=== PATIENT | female | born 1950 | race Caucasian/White ===

== ENCOUNTER 2022-06-03 01:25 | Observation (INO) | payer BC, SELFPAY ==
[2022-06-03] VITALS (15 sets, daily range): BP systolic 113–183; BP diastolic 42–71; PULSE 56–72; RESP 15–21; TEMP 36–37; O2SAT 86–100; BMI 25.0
--- NOTE | 2022-06-03 02:12 | CRLHL7_ITS ---
For Patients: As a result of the Cures Act, medical imaging exams and procedure reports are released immediately into your electronic medical record. You may view this report before your referring provider. If you have questions, please contact your health care provider. INDICATION: Hip injury from fall TECHNIQUE: Pelvis radiograph, Hip radiograph 3 views left COMPARISON: None FINDINGS: Bone: No acute fractures or aggressive bone lesions are identified. Three cannulated lag screws are present within the left femoral neck. Joint: The hip joint is unremarkable. The visualized sacroiliac joints are unremarkable in appearance. The pubic symphysis is normal in appearance. Soft tissue: Unremarkable. No radiopaque foreign bodies are seen. IMPRESSION: 1. No acute osseous injuries or abnormalities are noted. Dictated by Dustin De Los Santos MD @ 06/03/2022 2:52:16 AM Dictated by: Dustin De Los Santos MD @ 06/03/2022 02:52:29 (Electronically Signed)
--- NOTE | 2022-06-03 02:13 | CRLHL7_ITS ---
For Patients: As a result of the Century Cures Act, medical imaging exams and procedure reports are released immediately into your electronic medical record. You may view this report before your referring provider. If you have questions, please contact your health care provider. INDICATION: Lung mass, hypoxia, chest injury from fall TECHNIQUE: Chest radiograph 1 view COMPARISON: 06/28/2020 FINDINGS: Mediastinum: A left hilar lung mass is present measuring 4.6 cm in craniocaudal diameter and not significantly changed from prior exam. The heart silhouette is normal in size and morphology. Lung: Both apices are excluded. Mild interstitial infiltrates are present within both lungs with architectural distortion and tenting noted in the left lung base which may be due to mild pulmonary fibrosis. No sign of pleural effusion seen. No pneumothorax is identified. Bone and Soft tissue: Unremarkable for age. IMPRESSION: 1. A left hilar lung mass is present measuring 4.6 cm in craniocaudal diameter and not significantly changed from prior exam. Dictated by uDstin De Los Santos MD @ 06/03/2022 2:51:43 AM Dictated by: Dustin De Los Santos MD @ 06/03/2022 02:51:46 (Electronically Signed)
--- NOTE | 2022-06-03 02:19 | CRLHL7_ITS ---
For Patients: As a result of the Cures Act, medical imaging exams and procedure reports are released immediately into your electronic medical record. You may view this report before your referring provider. If you have questions, please contact your health care provider. INDICATION: Shoulder injury from fall TECHNIQUE: Shoulder radiograph 2 views left COMPARISON: None FINDINGS: Bone: No acute fractures or aggressive bone lesions are identified. Joint: The glenohumeral joint is unremarkable. The acromioclavicular joint is unremarkable. Soft tissue: Unremarkable. The visualized hemithorax is unremarkable in appearance. No radiopaque foreign bodies are seen. IMPRESSION: 1. No acute osseous injuries or abnormalities are noted. Dictated by: Dustin De Los Santos MD @ 06/03/2022 02:52:46 (Electronically Signed)
[2022-06-03 02:20] LABS: Basophils Absolute Auto 0.04 K/uL (0.00-0.30); Basophils Percent Auto 0.5 % (0.0-3.0); Eosinophils Absolute Auto 0.47 K/uL (0.00-0.50); Eosinophils Percent Auto 6.4 % (0.0-7.0); Hematocrit 34.6 % (33.0-51.0); Hemoglobin* 11.8 gm/dL (12.0-16.0); Immature Granulocytes Abs Auto 0.03 K/uL (0.00-0.30); Lymphocytes Percent Auto 13.3 % (20-44); Mean Corpuscular HGB Conc 34 gm/dL (32-36); Mean Corpuscular Hemoglobin 32 pg (26-34); Mean Corpuscular Volume 94 fL (80-100); Monocytes Percent Auto 7.3 % (0.0-11.0); Neutrophils Percent Auto 72.1 % (42.0-72.0); Platelet Count* 166 K/uL (140-440); RDW Coefficient of Variation % 12.7 % (11.5-15.5); Red Blood Count 3.67 m/uL (4.00-5.20); Slide Review Reflex No; White Blood Count* 7.38 K/uL (4.50-11.00)
[2022-06-03 02:21] LABS: Chloride* 100 mmol/L (96-114); Sodium* 138 mmol/L (135-149)
[2022-06-03 02:24] LABS: Carbon Dioxide* 32 mmol/L (20-32); Creatinine* 1.4 mg/dL (0.5-1.5); Estimated Glomerular Filt Rate 40 ml/min
[2022-06-03 02:25] LABS: Blood Urea Nitrogen* 52 mg/dL (7-30); Calcium* 9.2 mg/dL (8.4-10.6); Glucose* 123 mg/dL (60-115)
--- NOTE | 2022-06-03 02:30 | ED_ITS ---
HPI - Fall General Chief Complaint: Fall/Minor Trauma Stated Complaint: fall injured hip Time Seen by Provider: 06/03/22 01:58 Source: patient and RN notes reviewed Mode of arrival: EMS History of Present Illness HPI Narrative: 71-year-old woman presenting to the emergency department with complaint of left hip pain particular after a fall. Brought by EMS. Lives at the [facility] due to cares needed for muscular sclerosis. She was trying to get out of bed, sounds like to adjust it noting an electrical bed, and tripped on the carpet and fell onto her left side. There was no loss of consciousness. She is not having any head or neck pain. No back pain. This pain described in the left upper arm and left hip which is noted to be deformed on arrival. No abdominal pain. Does have a history of a right lung mass. She is not feeling unusually short of breath. Prior to my seeing her had noted desperate need to urinate and nursing has placed a G[place]imo. Prior history of surgery on left hip. History of diabetes. Takes glimepiride. History of chronic kidney disease. Also baclofen for MS. Normally gets about with a walker. Related Data Home Medications Medication Instructions Recorded Confirmed lisinopril 2.5 mg tablet 2.5 mg PO DAILY 04/16/22 06/03/22 alprazolam 0.5 mg tablet 0.25 mg PO DAILY PRN anxiety 06/03/22 06/03/22 aripiprazole 10 mg tablet 10 mg PO HS 06/03/22 06/03/22 baclofen 10 mg tablet 10 mg PO BID PRN 06/03/22 06/03/22 duloxetine 60 mg capsule,delayed 60 mg PO BID 06/03/22 06/03/22 release glimepiride 1 mg tablet 1 mg PO DAILY 06/03/22 06/03/22 ipratropium bromide 21 mcg (0.03 2 spray intranasal TID 06/03/22 06/03/22 %) nasal spray levothyroxine 75 mcg tablet 75 mcg PO DAILY 06/03/22 06/03/22 metoprolol succinate 50 mg 50 mg PO DAILY 06/03/22 06/03/22 tablet,extended release 24 hr pregabalin 25 mg capsule 25 mg PO HS 06/03/22 06/03/22 simvastatin 40 mg tablet 40 mg PO HS 06/03/22 06/03/22 Previous Rx's Medication Instructions Recorded hydrocodone 10 mg-acetaminophen 1 tab PO TID PRN pain #90 tabs 05/29/22 325 mg tablet Allergies Allergy/AdvReac Type Severity Reaction Status Date / Time codeine Allergy Intermediate Makes me Verified 06/03/22 01:46 crazy ketorolac [From Toradol] Allergy Intermediate Agitated Verified 06/03/22 01:46 Review of Systems Status of ROS: Reports: 6 or more systems reviewed and unremarkable except as noted in History and below [facility] Medical History (Updated 06/03/22 @ 10:32 by Barrett Bautista MD) Acute depression CAD (coronary artery disease) Chronic low back pain Closed fracture of left hip requiring operative repair COPD (chronic obstructive pulmonary disease) Diabetes mellitus Dyslipidemia DECLAN (generalized anxiety disorder) History of fracture of left hip HTN (hypertension) Hypothyroid Hypoxia Mass of right lung Multiple sclerosis Myocardial infarction MAKAYLA on CPAP Osteoporosis Valvular heart disease Surgical History (Updated 06/03/22 @ 10:25 by Barrett Bautista MD) History of coronary artery stent placement History of toe surgery Family History Father CHF (congestive heart failure) Social History Highest level of school completed/degree received: some college, no degree Smoking Status: Former smoker Do you use any of these nicotine containing products: None Second hand tobacco smoke exposure: No How often do you have a drink containing alcohol: never AUDIT-C Alcohol total score: 0 Non-prescribed substance use: denies use Caffeine: Yes (1 cup coffee per day) service: No Exam Narrative: Exam Narrative: Asleep cap on. She is alert and NAD at rest. Carefully groomed. Head looks to be atraumatic. Neck is supple. Back nontender. Cranial nerves 2-12 intact. lungs with generally in her lungs with crepitus. Good air movement. Cardiovascular with regular rate and rhythm. 2/6 systolic murmur across precordium. Chest is nontender Has some limited extension at the left shoulder. Abduct to about 45?. She is sore generally to palpation this left shoulder upper humerus. I do not see discrete swelling or erythema. Extremities are well perfused. There is no edema in lower extremities. Abdomen is soft and nontender. Moves Right leg without apparent difficulty but the left hip/leg does show deformity in the left hip with firm and somewhat purple swelling at the greater trochanter area, sore to palpation. Resists movement initially. Const: Vital Signs, click to edit/add: Vital Signs - 24 hr 06/03/22 01:40 06/03/22 01:39 06/03/22 02:42 Temperature 96.8 F L Pulse Rate [Left P ulse Oximeter] 72 63 Respiratory Rate 18 15 Blood Pressure [Ri ght Upper Arm] 183/67 H 164/62 H Pulse Oximetry 86 L 98 100 Oxygen Delivery Me thod Room Air Nasal Cannula Nasal Cannula Oxygen Flow Rate 2 06/03/22 02:51 06/03/22 03:36 06/03/22 04:59 Temperature Pulse Rate [Left P ulse Oximeter] 64 64 60 Respiratory Rate 16 17 16 Blood Pressure [Ri ght Upper Arm] 165/66 H 148/45 H 147/42 H Pulse Oximetry 100 100 93 Oxygen Delivery Me thod Nasal Cannula Nasal Cannula Nasal Cannula Oxygen Flow Rate 2 2 2 06/03/22 05:50 Temperature Pulse Rate [Left P ulse Oximeter] 57 L Respiratory Rate 21 Blood Pressure [Ri ght Upper Arm] 133/42 L Pulse Oximetry 99 Oxygen Delivery Me thod Nasal Cannula Oxygen Flow Rate 2 Documenting provider has reviewed patient's vital signs: yes Course Course Hospital Course: Exam and interview as above. Is still rather sore. Consultations Consultation #1: Spoke initially with on-call hospitalist. Recommending further cares in the emergency department. Corrected potassium and subsequently EKG. Vital Signs Vital signs: Initial Vital Signs Pulse Oximetry 98 06/03/22 01:39 Oxygen Delivery Method 06/03/22 01:39 Vital Signs Pulse Oximetry 98 06/03/22 01:39 Oxygen Delivery Method 06/03/22 01:39 Temperature 97.5 F L 06/03/22 13:30 Pulse Rate 63 06/03/22 13:30 Respiratory Rate 16 06/03/22 13:30 Blood Pressure 144/48 H 06/03/22 13:30 Pulse Oximetry 92 06/03/22 13:30 Oxygen Delivery Method 06/03/22 13:30 Oxygen Flow Rate 1 06/03/22 08:45 MDM - Fall MDM Narrative Medical decision making narrative: Imaging pending. Anticipating admission. EKG was prominent T-waves and potassium 6.3. I cannot appreciate acute bony abnormality in review of left shoulder/humerus and left hip imaging. Surgical fixation noted in the left hip. By my read Chest x-ray looks to be generally with fibrotic changes-Radiology noting unchanged right lung mass. Will be treating hyperkalemia with insulin and dextrose. As well as calcium gluconate. Given pain complicating underlying MS and need for walker, now compounded by hyperkalemia of unclear etiology at this point with EKG changes in the setting of chronic kidney disease, anticipate admission. I have spoken initially with hospitalist. Initiating treatments for hyperkalemia and awaiting affect first Potassium is improved to 5. Repeat EKG now with less prominent/WNL T-waves. A call again to hospitalist. Change of shift there. Clarified code status. Just desires not to have prolonged intubation. Would consider in that case full code. Medical Records Attestation: I reviewed the patient's medical records. Lab Data Attestation: I reviewed the patient's lab results. Labs: Lab Results 06/03/22 06/03/22 06/03/22 Range/Units 02:00 02:05 02:05 WBC 7.38 (4.50-11.00) K/uL RBC 3.67 L (4.00-5.20) m/uL Hgb 11.8 L (12.0-16.0) gm/dL Hct 34.6 (33.0-51.0) % MCV 94 (80-100) fL MCH 32 (26-34) pg MCHC 34 (32-36) gm/dL RDW Coeff of Simba 12.7 (11.5-15.5) % Plt Count 166 (140-440) K/uL Neut % (Auto) 72.1 H (42.0-72.0) % Lymph % (Auto) 13.3 L (20-44) % [place] % (Auto) 7.3 (0.0-11.0) % Eos % (Auto) 6.4 (0.0-7.0) % Baso % (Auto) 0.5 (0.0-3.0) % Neut # (Auto) 5.30 (1.7-7.0) K/uL Lymph # (Auto) 1.00 (0.90-2.90) K/uL [place] # (Auto) 0.50 (0.00-0.90) K/UL Eos # (Auto) 0.47 (0.00-0.50) K/uL Baso # (Auto) 0.04 (0.00-0.30) K/uL Abs Immat Gran (auto) 0.03 (0.00-0.30) K/uL Sodium 138 (135-149) mmol/L Potassium 6.3 H* (3.6-5.1) mmol/L Chloride 100 (96-114) mmol/L Carbon Dioxide 32 (20-32) mmol/L BUN 52 H (7-30) mg/dL Creatinine 1.4 (0.5-1.5) mg/dL Estimated GFR 40 ml/min Glucose 123 H (60-115) mg/dL Calcium 9.2 (8.4-10.6) mg/dL Magnesium 1.7 (1.5-2.6) mg/dL Total Creatine Kinase 119 H (41-117) U/L SARS-CoV-2 (PCR) Negative SARS-CoV-2 (Negative) 06/03/22 Range/Units 05:10 WBC (4.50-11.00) K/uL RBC (4.00-5.20) m/uL Hgb (12.0-16.0) gm/dL Hct (33.0-51.0) % MCV (80-100) fL MCH (26-34) pg MCHC (32-36) gm/dL RDW Coeff of Simba (11.5-15.5) % Plt Count (140-440) K/uL Neut % (Auto) (42.0-72.0) % Lymph % (Auto) (20-44) % [place] % (Auto) (0.0-11.0) % Eos % (Auto) (0.0-7.0) % Baso % (Auto) (0.0-3.0) % Neut # (Auto) (1.7-7.0) K/uL Lymph # (Auto) (0.90-2.90) K/uL [place] # (Auto) (0.00-0.90) K/UL Eos # (Auto) (0.00-0.50) K/uL Baso # (Auto) (0.00-0.30) K/uL Abs Immat Gran (auto) (0.00-0.30) K/uL Sodium 140 (135-149) mmol/L Potassium 5.0 (3.6-5.1) mmol/L Chloride 105 (96-114) mmol/L Carbon Dioxide 33 H (20-32) mmol/L BUN 46 H (7-30) mg/dL Creatinine 1.5 (0.5-1.5) mg/dL Estimated GFR 37 ml/min Glucose 78 (60-115) mg/dL Calcium 8.9 (8.4-10.6) mg/dL Magnesium (1.5-2.6) mg/dL Total Creatine Kinase (41-117) U/L SARS-CoV-2 (PCR) (Negative) ECG Data Attestation: I personally reviewed and interpreted this ECG as follows: (EKG with normal sinus at a rate of 66. Somewhat prominent T-waves. I do not have prior EKG for comparison) Critical Care Time Critical Care Time Critical Care Time: Yes Attestation: The patient required my highest level preparedness to intervene emergently and I personally spent this critical care time directly and personally managing the patient. This critical care time included: Obtaining a history; Examining the patient; Pulse oximetry; Ordering and reviewing of studies; Arranging urgent treatment with development of a management plan; Evaluation of patients response to treatment; Frequent reassessment discussions with other providers. This critical care time was performed to assess and manage the high probability of imminent life-threatening deterioration that could result in multiorgan failure. It was exclusive of separate billable procedures and treating other patients and teaching time. Total Critical Care Time in Minutes: 45 Discharge Plan Discharge Clinical Impression: Hematoma and contusion, Acute electrocardiogram changes, Multiple sclerosis, Fall, Hyperkalemia Patient Disposition: Admitted As Inpatient Condition: Improved
[2022-06-03 02:31] LABS: Potassium* 6.3 mmol/L (3.6-5.1)
--- NOTE | 2022-06-03 02:31 | ED.NURSE ---
Patient to radiology.
[2022-06-03] MEDS: MORPHINE 4 MG/ML INJ IVP (02:44)
[2022-06-03] MEDS: 0.9 % SODIUM CHLORIDE 1000 ml 1,000 ML IV (02:45)
[2022-06-03 02:48] LABS: SARS PCR* Negative SARS-CoV-2 (Negative)
[2022-06-03] MEDS: DEXTROSE 50 % SYRINGE IVP (03:29)
[2022-06-03 05:05] LABS: Magnesium* 1.7 mg/dL (1.5-2.6)
[2022-06-03 05:31] LABS: Chloride* 105 mmol/L (96-114); Sodium* 140 mmol/L (135-149)
[2022-06-03 05:34] LABS: Carbon Dioxide* 33 mmol/L (20-32); Creatinine* 1.5 mg/dL (0.5-1.5); Estimated Glomerular Filt Rate 37 ml/min
[2022-06-03 05:35] LABS: Blood Urea Nitrogen* 46 mg/dL (7-30); Calcium* 8.9 mg/dL (8.4-10.6); Glucose* 78 mg/dL (60-115)
--- NOTE | 2022-06-03 06:21 | ED.NURSE ---
Juanpablo d/c'd with 600cc clear yellow urine out per Dr. gray verbal order.
[2022-06-03] MEDS: HYDROCODONE-ACETAMIN 5-325 MG 1 TAB PO ×3 (08:11→21:20)
[2022-06-03] MEDS: FUROSEMIDE 20 MG TABLET PO (08:54)
[2022-06-03 09:42] LABS: Creatine Kinase* 119 U/L (41-117)
--- NOTE | 2022-06-03 10:16 | PM.IMHP1 ---
Hospitalist- H&P: SAMAN History of Present Illness Date Seen: 06/03/22 Chief complaint: fall injured hip Narrative: Akiko Velázquez is a 71 year old female who fell last night injuring her left hip and left shoulder. Patient is a resident of [facility] in [place]. She was in bed trying to fall asleep. She got out of bed to reposition the head of her bed and fell over landing on her left hip and shoulder. She was unable to get up on her own. She did not have any loss of consciousness. She has no head or neck pain. Patient does have a history of falling secondary to multiple sclerosis. Evaluation in the emergency department showed no apparent fractures of her left shoulder or left hip. Her potassium was 6.3. She does not recall a history of hyperkalemia. Reviewing records I do see that she has had borderline elevated potassium in the past. She is on lisinopril 2.5 mg daily Review of Systems Narrative: She reports that she was in her usual state of health prior to the fall. She has not had recent illness including lightheadedness, focal weakness, shortness of breath, cough, cold, sore throat, fever, shortness of breath, chest pain, palpitations, nausea, vomiting, abdominal pain, diarrhea. She does have a tendency towards constipation because of chronic pain medications. She also has neurogenic bladder related to multiple sclerosis. She has not had any lower extremity edema. No new focal weakness. She is on chronic opioid therapy for chronic lower extremity pain. [facility] Medical History (Updated 06/03/22 @ 10:32 by Barrett Bautista MD) Acute depression CAD (coronary artery disease) Chronic low back pain Closed fracture of left hip requiring operative repair COPD (chronic obstructive pulmonary disease) Diabetes mellitus Dyslipidemia DECLAN (generalized anxiety disorder) History of fracture of left hip HTN (hypertension) Hypothyroid Hypoxia Mass of right lung Multiple sclerosis Myocardial infarction MAKAYLA on CPAP Osteoporosis Valvular heart disease Surgical History (Updated 06/03/22 @ 10:25 by Barrett Bautista MD) History of coronary artery stent placement History of toe surgery Family History Father CHF (congestive heart failure) Social History Highest level of school completed/degree received: some college, no degree Smoking Status: Former smoker Do you use any of these nicotine containing products: None Second hand tobacco smoke exposure: No How often do you have a drink containing alcohol: never AUDIT-C Alcohol total score: 0 Non-prescribed substance use: denies use Caffeine: Yes (1 cup coffee per day) service: No Meds Home Medications and Allergies Home Medications Medication Instructions Recorded Confirmed Type lisinopril 2.5 mg tablet 2.5 mg PO DAILY 04/16/22 06/03/22 History alprazolam 0.5 mg tablet 0.25 mg PO DAILY PRN anxiety 06/03/22 06/03/22 History aripiprazole 10 mg tablet 10 mg PO HS 06/03/22 06/03/22 History baclofen 10 mg tablet 10 mg PO BID PRN 06/03/22 06/03/22 History duloxetine 60 mg capsule,delayed 60 mg PO BID 06/03/22 06/03/22 History release glimepiride 1 mg tablet 1 mg PO DAILY 06/03/22 06/03/22 History ipratropium bromide 21 mcg (0.03 2 spray intranasal TID 06/03/22 06/03/22 History %) nasal spray levothyroxine 75 mcg tablet 75 mcg PO DAILY 06/03/22 06/03/22 History metoprolol succinate 50 mg 50 mg PO DAILY 06/03/22 06/03/22 History tablet,extended release 24 hr pregabalin 25 mg capsule 25 mg PO HS 06/03/22 06/03/22 History simvastatin 40 mg tablet 40 mg PO HS 06/03/22 06/03/22 History Allergies Allergy/AdvReac Type Severity Reaction Status Date / Time codeine Allergy Intermediate Makes me Verified 06/03/22 01:46 crazy ketorolac [From Toradol] Allergy Intermediate Agitated Verified 06/03/22 01:46 Exam Narrative: Exam Narrative: She is alert and appears in no distress. She gives her own history. Head is without evidence of trauma. She has lost most of her hair secondary to therapy for MS. No obvious head trauma. Neck is without tenderness. She moves her neck well. Eyes normal. Oropharynx with dry mucous membranes. Neck is without mass or tenderness. Respirations are clear to auscultation. Cardiovascular: S1, S2, 2/6 systolic ejection murmur. No gallop or rub. Abdomen: Bowel sounds active. Abdomen is soft without tenderness or mass. External genitalia normal. Extremities with intact pulses. She moves her right upper and lower extremity well without pain or significant limitation of motion or disability. Left shoulder is inspected and appears to have no obvious trauma. Palpation shows she is tender primarily around that humeral head. There is no obvious fluid collection or deformity noted. Palpation over the scapula and the clavicle is unremarkable. She is able to abduct to 45? and flex to 60?. Palpation over the distal upper extremity is without tenderness. She moves her elbow and wrist without difficulties. Left lower extremities notable for a moderate amount of bruising over the greater trochanter laterally. No obvious break in the skin. She can flex her hip to 90? without significant discomfort. She has quite limited range of motion with internal external rotation and a bee 80 duction of the left hip but this is not particularly painful. She moves her knee without significant discomfort palpation over her thigh knee and calf is without significant discomfort. Ankle and foot is normal in appearance without tenderness. Motion in her ankle is normal. Const: Vital Signs, click to edit/add: Vital Signs - 24 hr 06/03/22 01:40 06/03/22 01:39 06/03/22 02:42 Temperature 96.8 F L Pulse Rate Pulse Rate [Left P ulse Oximeter] 72 63 Pulse Rate [Right Radial] Respiratory Rate 18 15 Blood Pressure [Le ft Arm] Blood Pressure [Ri ght Arm] Blood Pressure [Ri ght Upper Arm] 183/67 H 164/62 H Pulse Oximetry 86 L 98 100 Oxygen Delivery Me thod Room Air Nasal Cannula Nasal Cannula Oxygen Flow Rate 2 06/03/22 02:51 06/03/22 03:36 06/03/22 04:59 Temperature Pulse Rate Pulse Rate [Left P ulse Oximeter] 64 64 60 Pulse Rate [Right Radial] Respiratory Rate 16 17 16 Blood Pressure [Le ft Arm] Blood Pressure [Ri ght Arm] Blood Pressure [Ri ght Upper Arm] 165/66 H 148/45 H 147/42 H Pulse Oximetry 100 100 93 Oxygen Delivery Me thod Nasal Cannula Nasal Cannula Nasal Cannula Oxygen Flow Rate 2 2 2 06/03/22 05:50 06/03/22 06:54 06/03/22 08:45 Temperature 96.9 F L 97.7 F Pulse Rate Pulse Rate [Left P ulse Oximeter] 57 L Pulse Rate [Right Radial] 63 61 Respiratory Rate 21 18 18 Blood Pressure [Le ft Arm] 149/46 H Blood Pressure [Ri ght Arm] 160/69 H Blood Pressure [Ri ght Upper Arm] 133/42 L Pulse Oximetry 99 90 96 Oxygen Delivery Me thod Nasal Cannula Nasal Cannula Nasal Cannula Oxygen Flow Rate 2 2 1 06/03/22 08:45 06/03/22 08:57 Temperature Pulse Rate 63 Pulse Rate [Left P ulse Oximeter] Pulse Rate [Right Radial] Respiratory Rate Blood Pressure [Le ft Arm] Blood Pressure [Ri ght Arm] Blood Pressure [Ri ght Upper Arm] Pulse Oximetry 96 Oxygen Delivery Me thod Nasal Cannula Oxygen Flow Rate 1 Documenting provider has reviewed patient's vital signs: yes Hospitalist - H&P: Result Labs Labs: Short CBC 06/03/22 Range/Units 02:05 WBC 7.38 (4.50-11.00) K/uL Hgb 11.8 L (12.0-16.0) gm/dL Hct 34.6 (33.0-51.0) % Plt Count 166 (140-440) K/uL BMP 06/03/22 06/03/22 02:05 05:10 Sodium 138 140 Potassium 6.3 H* 5.0 Chloride 100 105 Carbon Dioxide 32 33 H BUN 52 H 46 H Creatinine 1.4 1.5 Glucose 123 H 78 Calcium 9.2 8.9 Cardiac Enzymes 06/03/22 Range/Units 02:05 Total Creatine Kinase 119 H (41-117) U/L Assessment and Plan Assessment and plan (1) Fall: Status: Acute Assessment and Plan: Accidental fall due primarily to disabilities from multiple sclerosis. Certainly use of opioids chronically and benzodiazepines chronically contribute to her risk for falling. (2) Injury of left hip: Status: Acute Assessment and Plan: No apparent fracture. She tolerates weight-bearing fairly well. Will have PT and OT continue to assess mobility. (3) Injury of left shoulder: Status: Acute Assessment and Plan: Marked decreased range of motion but tolerating activity fairly well. She was able to hold onto a walker with her left arm today and navigate into the bathroom. Outpatient therapy and possibly outpatient Ortho consult may be warranted (4) Hyperkalemia: Status: Acute Assessment and Plan: Due to chronic kidney disease plus lisinopril. Will stop lisinopril. Add low-dose loop diuretic. Cardiac monitoring and follow. (5) Multiple sclerosis: Status: Acute (6) Chronic kidney disease: Status: Acute Assessment and Plan: Likely the cause of her hyperkalemia. (7) Chronic pain: Status: Acute Assessment and Plan: Patient would be better off if able to reduce opioid use due to fall risk and constipation. Cannot use NSAIDs due to chronic kidney disease (8) Hypoxia: Status: Acute Assessment and Plan: Has chronic hypoxia for which she intermittently uses oxygen at home. Will continue to monitor here. Patient also reports a history of sleep apnea. Plan Continue in hospital for monitoring and treatment of elevated potassium, evaluation by PT and OT for mobility. Further assessment of injuries as needed, probably as an outpatient. Probable discharge to home tomorrow if able to manage. Total time spent today is 90 minutes, 60 minutes in coordination of care and discussing with patient and other providers ongoing evaluation management of disability and hyperkalemia.
[2022-06-03] MEDS: METOPROLOL SUCCINATE (XL) 50 MG TAB PO (11:20)
[2022-06-03] MEDS: DULOXETINE 30 MG CAPSULE DR 60 MG PO ×2 (11:20→21:20)
--- NOTE | 2022-06-03 14:29 | PC.SOCIAL ---
Met with pt. who resides at the [facility] in [place]. Pt. states she get's cleaning assistance 1x a week, 3 meals a day, and medication set up. Pt. is wanting and increase in services for awhile at discharge due to her pain. A message was left with [employer] [place] at [phone], if they can increase assistance for pt. to have assistance with bathing, dressing and toileting if needed. Pt also states her granddaughter lives close by and works from home so can occasionally assist as well. Socials services will wait to hear back from the [facility] and continue to work on discharge planning needs.
--- NOTE | 2022-06-03 18:13 | PC.NURSE ---
Pt. up in chair and to BR with walker and SBA. Drain used for pain control. Telemetry Sinus Bradycardia/Normal Sinus Rhythm.
[2022-06-03] MEDS: SIMVASTATIN 40 MG TABLET PO (21:20)
[2022-06-03] MEDS: ARIPiprazole 10 MG TABLET PO (21:20)
[2022-06-03] MEDS: PREGABALIN 25 MG CAPSULE PO (21:25)
[2022-06-04 01:10] VITALS: PULSE 60
[2022-06-04 02:40] VITALS: BP 123/48; PULSE 59; RESP 18; TEMP 36.6; O2SAT 96
--- NOTE | 2022-06-04 05:47 | PC.NURSE ---
Shift 7p-7a: Pt. AOx4, following commands, VSS on 1L NC overnight. Pt. ambulating to toilet A1 w/ RW and gait belt, voiding w/o difficulties. PRN Isom administered for c/o pain in LT shoulder and LT hip. Pt. states LT hip appears to be less swollen than yesterday, and that she feels much stronger this morning. Pt. denies headache, dizziness, nausea/vomiting. Plan for PT/OT to work with pt. to promote mobility, and waiting for nursing home social worker to contact pt.'s assisted living facility for increased services for ADL's. Plan for possible discharge back to living facility today
[2022-06-04] MEDS: LEVOTHYROXINE 75 MCG TABLET PO (06:09)
[2022-06-04 07:00] VITALS: BP 171/49; PULSE 58; PULSE 59; RESP 18; TEMP 36.6; O2SAT 96
[2022-06-04 07:34] LABS: Chloride* 101 mmol/L (96-114); Potassium* 5.7 mmol/L (3.6-5.1); Sodium* 138 mmol/L (135-149)
[2022-06-04 07:37] LABS: Basophils Absolute Auto 0.05 K/uL (0.00-0.30); Carbon Dioxide* 32 mmol/L (20-32); Creatinine* 1.5 mg/dL (0.5-1.5); Eosinophils Percent Auto 9.2 % (0.0-7.0); Est. Creatinine Clearance* 27.63; Estimated Glomerular Filt Rate 37 ml/min; Hemoglobin* 10.8 gm/dL (12.0-16.0); Immature Granulocytes Abs Auto 0.02 K/uL (0.00-0.30); Lymphocytes Percent Auto 17.7 % (20-44); Mean Corpuscular HGB Conc 33 gm/dL (32-36); Mean Corpuscular Hemoglobin 32 pg (26-34); Mean Corpuscular Volume 97 fL (80-100); Monocytes Percent Auto 9.4 % (0.0-11.0); Neutrophils Absolute Auto 3.27 K/uL (1.7-7.0); Neutrophils Percent Auto 62.3 % (42.0-72.0); Platelet Count* 153 K/uL (140-440); RDW Coefficient of Variation % 13.1 % (11.5-15.5); Red Blood Count 3.39 m/uL (4.00-5.20); White Blood Count* 5.24 K/uL (4.50-11.00)
[2022-06-04 07:38] LABS: Blood Urea Nitrogen* 46 mg/dL (7-30); Calcium* 8.7 mg/dL (8.4-10.6); Glucose* 136 mg/dL (60-115)
[2022-06-04 08:20] LABS: Slide Review Reflex No
[2022-06-04] MEDS: METOPROLOL SUCCINATE (XL) 50 MG TAB PO (09:40)
[2022-06-04] MEDS: TORSEMIDE 5 MG TABLET 10 MG PO (09:40)
[2022-06-04] MEDS: GLIMEPIRIDE 1 MG TABLET PO (09:40)
[2022-06-04] MEDS: DULOXETINE 30 MG CAPSULE DR 60 MG PO ×2 (09:41→18:11)
[2022-06-04] MEDS: HYDROCODONE-ACETAMIN 5-325 MG 1 TAB PO ×2 (10:08→16:37)
[2022-06-04 11:00] VITALS: BP 138/72; PULSE 61; RESP 18; TEMP 36.5; O2SAT 96
--- NOTE | 2022-06-04 12:16 | PC.SOCIAL ---
Spoke with pt.'s granddaughter Matthew at [phone] and with a nurse at the [facility]. Pt. can return there with additional assistance if needed. Clarified that pt. would not qualify for a SNF since pt. does not need PT ongoing. Updated Matthew on this who was told initially by OT pt. would need a TCU. Pt. will discharge resuming medication set-up, 3 meals a day, cleaning assistance and dressing/toileting assistance if needed. Pt. was able to independently toilet self today. Pt. and granddaughter Matthew prefers medical transport since Matthew has an SUV, which is difficult for pt. to get in. Pt. has [employer] and has transportation coverage. [facility] transport is booked so pt. will discharge via non-emergency ambulance.
--- NOTE | 2022-06-04 12:32 | P.DS_ITS ---
DS: Providers Provider Date Seen: 06/04/22 Date of admission: 06/03/22 06:09 Primary care physician: Marjan Harley MD Admitting Clinician: Humza May MD Consults: 06/03/22 08:07 Consult to Physical Therapy [CONS] Routine Comment: Reason(s) for PT Consult:: Evaluate and Treat Any Restrictions?:: No Restrictions Consult to Dye Range Operator [CONS] Routine Comment: Reason for Consult:: Discharge Planning Needs 06/03/22 08:10 Consult to Occupational Therapy [CONS] Routine Comment: Reason(s) for OT Consult:: Evaluate and Treat Any Restrictions?:: No Restrictions Attending Physician on discharge: Renee Nicole MD Date of Discharge: 06/04/22 DS: Diagnosis Discharge Diagnosis (1) Hyperkalemia: Status: Acute Problem details: Due to a combination of acute crush injury, chronic kidney disease, lisinopril. Discontinue lisinopril and start low-dose torsemide for hypertension and hyperkalemia (2) Injury of left hip: Status: Acute Problem details: Appears to be large bruise. Significantly improved. Not disabling pain (3) Injury of left shoulder: Status: Acute Problem details: Improved. Outpatient therapy recommended (4) Chronic kidney disease: Status: Acute Problem details: At baseline (5) Multiple sclerosis: Status: Acute Problem details: At baseline (6) Hypoxia: Status: Acute Problem details: Chronic (7) Chronic pain: Status: Acute Problem details: Chronic. On chronic opioid therapy likely contributing to hypoxia and fall risk DS: Summary Hospital Course Hospital Course: 71-year-old female fell at home injuring her left shoulder and left hip. She is unable to get up on her own. She had fairly severe acute pain. In the emergency department she was evaluated and not found to have any fractures or severe injury requiring surgical intervention. She was noted to have marked limitation in shoulder range of motion and in function but she was able to hold onto a walker to ambulate. Hip was felt to be primarily a large bruise over the greater trochanter and did not have significant disability with ambulation due to that. Incidentally noted to have hypoxia which was felt to be chronic Time Spent with Patient Time attestation: Total time spent providing and/or coordinating discharge services: Exam Narrative: Exam Narrative: Patient is alert and appears in no distress. She gives her own history. She is breathing comfortably on room air. Respirations are unlabored . Inspection of her shoulder shows some mild bruising in her upper arm. Palpation shows some mild diffuse tenderness around the shoulder. Left shoulder active range of motion: Abduction 75?, flexion 75?, 45 ? of external rotation, 75? of internal rotation. Passively I can abduct to 90?. She has mild bruising around her elbow but elbow moves without significant discomfort. Intact motion, pulses and sensation in her hand. Left hip with moderate amount of bruising over the greater trochanter. She tolerates hip motion without significant discomfort. Const: Vital Signs, click to edit/add: Vital Signs - 24 hr 06/03/22 13:30 06/03/22 15:51 06/03/22 15:51 Temperature 97.5 F L 98.6 F Pulse Rate Pulse Rate [Left R adial] 71 Pulse Rate [Right Radial] 63 Respiratory Rate 16 18 Blood Pressure [Le ft Arm] 144/48 H 161/48 H Blood Pressure [Ri ght Arm] Pulse Oximetry 92 92 92 Oxygen Delivery Me thod Room Air Room Air Room Air Oxygen Flow Rate 06/03/22 18:07 06/03/22 19:00 06/03/22 23:00 Temperature 98.2 F Pulse Rate 56 L Pulse Rate [Left R adial] 69 65 Pulse Rate [Right Radial] Respiratory Rate 18 18 Blood Pressure [Le ft Arm] Blood Pressure [Ri ght Arm] 113/60 Pulse Oximetry 93 Oxygen Delivery Me od Room Air Oxygen Flow Rate 06/03/22 23:00 06/04/22 01:10 06/04/22 02:40 Temperature 98.1 F 97.9 F Pulse Rate 60 Pulse Rate [Left R adial] 65 59 L Pulse Rate [Right Radial] Respiratory Rate 18 18 Blood Pressure [Le ft Arm] Blood Pressure [Ri ght Arm] 125/71 123/48 L Pulse Oximetry 87 L 96 Oxygen Delivery Me thod Nasal Cannula Nasal Cannula Oxygen Flow Rate 2 1 06/04/22 07:00 06/04/22 07:00 06/04/22 07:00 Temperature 97.9 F Pulse Rate 59 L Pulse Rate [Left R adial] 58 L 58 L Pulse Rate [Right Radial] Respiratory Rate 18 18 Blood Pressure [Le ft Arm] Blood Pressure [Ri ght Arm] 171/49 H Pulse Oximetry 96 Oxygen Delivery Me thod Room Air Oxygen Flow Rate Documenting provider has reviewed patient's vital signs: yes DS: Data Data Completed and Pending Labs on day of discharge: Labs from last 24 hours 06/04/22 06/04/22 06:00 06:00 WBC 5.24 RBC 3.39 L Hgb 10.8 L Hct 33.0 MCV 97 MCH 32 MCHC 33 RDW Coeff of Simba 13.1 Plt Count 153 Neut % (Auto) 62.3 Lymph % (Auto) 17.7 L Miner % (Auto) 9.4 Eos % (Auto) 9.2 H Baso % (Auto) 1.0 Neut # (Auto) 3.27 Lymph # (Auto) 0.90 Miner # (Auto) 0.50 Eos # (Auto) 0.50 Baso # (Auto) 0.05 Abs Immat Gran (auto) 0.02 Sodium 138 Potassium 5.7 H Chloride 101 Carbon Dioxide 32 BUN 46 H Creatinine 1.5 Estimated Creat Clear 27.63 Estimated GFR 37 Glucose 136 H Calcium 8.7 Discharge Plan Discharge Disposition: Home, Self-Care Date of Admission: 06/03/22 06:09 Primary Care Provider: Marjan Harley Condition: Improved Anticipated Discharge Date/Time: 06/04/22 15:00 Discharge Medications: New sennosides-docusate sodium [Stool Softener-Laxative] 8.6-50 mg Tablet 1 tab PO BID PRNQty: 30 0RF torsemide 5 mg Tablet 5 mg PO DAILY Qty: 30 0RF Continued baclofen 10 mg tablet 10 mg PO BID PRN Label Comments: TAKE 4 TABLETS BY MOUTH TWICE DAILY aripiprazole 10 mg tablet 10 mg PO HS Label Comments: TAKE 1 TABLET BY MOUTH DAILY duloxetine 60 mg capsule,delayed release(DR/EC) 60 mg PO BID Label Comments: TAKE 1 BY MOUTH TWICE DAILY. glimepiride 1 mg tablet 1 mg PO DAILY Label Comments: TAKE 1 TABLET BY MOUTH DAILY pregabalin 25 mg capsule 25 mg PO HS Label Comments: TAKE 1 CAPSULE BY MOUTH EVERY NIGHT 2 HOURS BEFORE BEDTIME FOR 1 WEEK. INCREASE TO 2 CAPSULES 2 HOURS BEFORE BEDTIME EVERY NIGHT DAILY simvastatin 40 mg tablet 40 mg PO HS Label Comments: TAKE 1 TABLET BY MOUTH AT BEDTIME metoprolol succinate 50 mg tablet extended release 24 hr 50 mg PO DAILY Label Comments: TAKE 1 TABLET BY MOUTH DAILY levothyroxine 75 mcg tablet 75 mcg PO DAILY Label Comments: TAKE 1 TABLET BY MOUTH DAILY ipratropium bromide 21 mcg (0.03 %) spray,non-aerosol 2 spray INTRANASAL TID Label Comments: INSTILL 2 SPRAYS IN EACH NOSTRIL THREE TIMES DAILY alprazolam 0.5 mg tablet 0.25 mg PO DAILY PRN (Reason: anxiety) Rx Instructions: 15 tablets must last 3 months. Due for office visit in early August hydrocodone-acetaminophen 10-325 mg tablet 1 tab PO TID PRN (Reason: pain) Qty: 90 0RF Discontinued lisinopril 2.5 mg tablet 2.5 mg PO DAILY Discharge Orders: Discharge Order (Routine); Ordered 06/04/22 Ordered By: Barrett Bautista Activity Restrictions/Additional Instructions: See your doctor in clinic next week to recheck your blood pressure and your kidney function and your potassium. Diet Detail: Low-potassium diet discussed and handout given. Follow Up Appointments: Marjan Harley MD [Primary Care Provider] - Forms: [employer] Info Instructions
--- NOTE | 2022-06-04 15:33 | PC.NURSE ---
Pt. alert and oriented x3. VSS. Pt. ambulating to toilet A1 w/ RW and gait belt, voiding w/o difficulties. Pt. rated pain in hip 4/10 and 8/10 for left shoulder. PRN Lebo administered for LT shoulder and LT hip. Pt. denies headache, dizziness, nausea/vomiting. Plan for pt. is waiting for medical social worker to contact pt.'s assisted living facility for increased services for ADL's. Plan for possible discharge back to living facility today.
[2022-06-04 16:00] LABS: Potassium* 5.3 mmol/L (3.6-5.1)
[2022-06-04 16:05] VITALS: BP 163/65; PULSE 70; RESP 18; TEMP 36.4; O2SAT 95
--- NOTE | 2022-06-04 16:27 | PC.SOCIAL ---
Updated Matthew that pt. would be discharging by 5pm and staff would call her if EMS time changes.
[2022-06-04] MEDS: SIMVASTATIN 40 MG TABLET PO (18:10)
[2022-06-04] MEDS: SENNOSIDES/DOCUSATE TABLET 1 TAB PO (18:11)
[2022-06-04] MEDS: PREGABALIN 25 MG CAPSULE PO (18:11)
--- NOTE | 2022-06-04 19:14 | PC.NURSE ---
Discharge summary: Nurse to nurse reporting given to Christopher (nurse) at [facility] . The discharge instructions reveiewed with the pt; and the paper works and pt belonging sent with the pt; EMS ( nonemergency ) drove the pt to [facility]. The pt appeared without any distress. C/O of mild left shoulder and hip pain; Walker given with some relief.
== END 2022-06-04 19:06 | disposition home or self-care (01) ==
LOC: ED 06:19 → MEDSURG 06:54
PROVIDERS: Admitting Provider Family Medicine; Emergency Provider Family Medicine; PCP Family Medicine; Visit Provider Family Medicine
DX: E87.5 Hyperkalemia (principal); R94.31 Abnormal electrocardiogram [ECG] [EKG]; S70.02XA Contusion of left hip, initial encounter; S40.012A Contusion of left shoulder, initial encounter; W01.0XXA Fall on same level from slipping, tripping and stumbling without subsequent striking against object, initial encounter; Y93.89 Activity, other specified; Y92.092 Bedroom in other non-institutional residence as the place of occurrence of the external cause; E11.22 Type 2 diabetes mellitus with diabetic chronic kidney disease; I12.9 Hypertensive chronic kidney disease with stage 1 through stage 4 chronic kidney disease, or unspecified chronic kidney disease; N18.9 Chronic kidney disease, unspecified; Z79.84 Long term (current) use of oral hypoglycemic drugs; G35 Multiple sclerosis; R09.02 Hypoxemia; Z99.81 Dependence on supplemental oxygen
CPT/HCPCS: 36415; 51702; 71045; 73030; 73502; 80048; 82550; 82947; 83735; 84132; 85025; 87635; 93005; 96374; 96375; 97110; 97116; 97161; 97165; 97530; 97535; 99284; 99285; 99291; G0378; A9270; G0379; J0610; J2270; J7030

== ENCOUNTER 2022-06-10 09:26 | Outpatient (CLI) | payer BC, SELFPAY ==
[2022-06-10 15:10] LABS: Chloride* 96 mmol/L (96-114); Potassium* 5.4 mmol/L (3.6-5.1); Sodium* 137 mmol/L (135-149)
[2022-06-10 15:13] LABS: Blood Urea Nitrogen* 67 mg/dL (7-30); Carbon Dioxide* 32 mmol/L (20-32); Creatinine* 1.8 mg/dL (0.5-1.5); Estimated Glomerular Filt Rate 29 ml/min; Glucose* 98 mg/dL (60-115)
[2022-06-10 15:14] LABS: Calcium* 9.3 mg/dL (8.4-10.6)
== END 2022-06-10 09:27 | disposition home or self-care (01) ==
PROVIDERS: PCP Family Medicine; Visit Provider Family Medicine
DX: E87.5 Hyperkalemia (principal)
CPT/HCPCS: 80048

== ENCOUNTER 2022-09-18 11:48 | Outpatient (CLI) | payer BC, SELFPAY ==
[2022-09-18 22:19] LABS: Albumin* 4.3 g/dL (3.3-5.0); Chloride* 101 mmol/L (96-114)
[2022-09-18 22:20] LABS: Potassium* 5.5 mmol/L (3.6-5.1); Sodium* 139 mmol/L (135-149)
[2022-09-18 22:22] LABS: Alkaline Phosphatase* 185 U/L (40-150); Aspartate Amino Transferase* 30 U/L (12-35); Bilirubin Total* 0.6 mg/dL (0.1-1.5); Blood Urea Nitrogen* 31 mg/dL (7-30); Carbon Dioxide* 32 mmol/L (20-32); Cholesterol* 153 mg/dL (90-199); Creatinine* 1.5 mg/dL (0.5-1.5); Estimated Glomerular Filt Rate 36 ml/min; Glucose* 108 mg/dL (60-115); Total Protein* 7.5 g/dL (6.0-8.3); Triglycerides* 177 mg/dL (40-149)
[2022-09-18 22:23] LABS: Alanine Aminotransferase* 18 U/L (4-35); Calcium* 9.5 mg/dL (8.4-10.6); HDL Cholesterol* 49 mg/dL (>=50); LDL Cholesterol Calculated 69 mg/dL (<100)
[2022-09-20 11:14] LABS: Microalbumin Creatinine Ratio 640 mg/g (0-30); Microalbumin Urine 77 mg/dL
== END 2022-09-18 11:49 | disposition home or self-care (01) ==
PROVIDERS: PCP Family Medicine; Visit Provider Family Medicine
DX: E87.5 Hyperkalemia (principal); N18.9 Chronic kidney disease, unspecified; R53.83 Other fatigue; S79.912A Unspecified injury of left hip, initial encounter
CPT/HCPCS: 80053; 80061; 82043; 82570; 84443; 87086; 87186

== ENCOUNTER 2022-10-31 14:56 | Outpatient (CLI) | payer BC, SELFPAY | END 2022-10-31 14:57 | disposition home or self-care (01) | PROVIDERS: PCP Family Medicine; Visit Provider Family Medicine | DX: N89.8 Other specified noninflammatory disorders of vagina (principal); I10 Essential (primary) hypertension; E11.9 Type 2 diabetes mellitus without complications; G35 Multiple sclerosis | CPT/HCPCS: 87086; 87186 ==

== ENCOUNTER 2022-12-16 12:55 | Outpatient (CLI) | payer BC, SELFPAY | END 2022-12-16 12:56 | disposition home or self-care (01) | LOC: NFLDREF 12-20 10:18 | PROVIDERS: PCP Family Medicine; Referring Provider Family Medicine; Visit Provider Family Medicine | DX: R39.9 Unspecified symptoms and signs involving the genitourinary system (principal); N39.0 Urinary tract infection, site not specified; R31.9 Hematuria, unspecified; I65.29 Occlusion and stenosis of unspecified carotid artery; I10 Essential (primary) hypertension; I38 Endocarditis, valve unspecified | CPT/HCPCS: 87086; 87186 ==

== ENCOUNTER 2023-01-09 11:46 | Outpatient (CLI) | payer BC, SELFPAY ==
--- NOTE | 2023-01-09 14:00 | CRLHL7_ITS ---
For Patients: As a result of the Cures Act, medical imaging exams and procedure reports are released immediately into your electronic medical record. You may view this report before your referring provider. If you have questions, please contact your health care provider. BILATERAL CAROTID ULTRASOUND, 01/09/2023 CLINICAL HISTORY: Carotid bruit, jugular venous distention. COMPARISON: None. TECHNIQUE: The carotid circulations and the vertebral arteries in the neck were examined with cochran-scale ultrasound, color-flow and Doppler spectral analysis. Degrees of stenosis were determined using SRU 2002 Consensus Panel Criteria. FINDINGS: Triphasic waveforms are noted in the right subclavian artery. Heterogeneous echogenic shadowing plaque at the right carotid bifurcation results in 50-69% stenosis of the lumen. There is normal antegrade flow in the right vertebral artery. Triphasic waveforms are noted in the left subclavian artery. Heterogeneous echogenic shadowing plaque at the left carotid bulb and proximal ICA results in 50-69% stenosis with peak systolic velocity of 180 cm/second. There is normal antegrade flow in the left vertebral artery. RIGHT PEAK SYSTOLIC VELOCITY Subclavian Artery: 99 Distal CCA: 82 Mid CCA: 81 Proximal ICA: 133 Mid ICA: 161 Distal ICA: 102 ICA/CCA Ratio: 2.0 Vertebral Artery: 81, antegrade LEFT PEAK SYSTOLIC VELOCITY Subclavian Artery: 84 Distal CCA: 220 Mid CCA: 86 Proximal ICA: 180 Mid ICA: 123 Distal ICA: 77 ICA/CCA Ratio: 0.8 Vertebral Artery: 58, antegrade IMPRESSION: 1) Atherosclerotic plaque at the bilateral carotid bifurcations and proximal internal carotid arteries results in 50-69% stenosis bilaterally. 2) Patent vertebral arteries and subclavian arteries. HUMZA SINGH M.D. Neuroradiologist [email or web address] Transcribed: 11:[address]/Dictated by: Humza Singh MD @ 01/10/2023 9:23:00 AM (Electronically Signed)
== END 2023-01-09 11:47 | disposition home or self-care (01) ==
LOC: RAD 11:51
PROVIDERS: PCP Family Medicine; Visit Provider Family Medicine
DX: I65.23 Occlusion and stenosis of bilateral carotid arteries (principal); I35.0 Nonrheumatic aortic (valve) stenosis; I34.0 Nonrheumatic mitral (valve) insufficiency; I35.1 Nonrheumatic aortic (valve) insufficiency; R01.1 Cardiac murmur, unspecified; I38 Endocarditis, valve unspecified
CPT/HCPCS: 93306; 93880

== ENCOUNTER 2023-03-26 13:53 | Outpatient (CLI) | payer BC, SELFPAY | END 2023-03-26 13:54 | disposition home or self-care (01) | PROVIDERS: PCP Family Medicine; Visit Provider Family Medicine | DX: E87.5 Hyperkalemia (principal); I10 Essential (primary) hypertension; N39.0 Urinary tract infection, site not specified; E11.9 Type 2 diabetes mellitus without complications; N18.30 Chronic kidney disease, stage 3 unspecified; G35 Multiple sclerosis | CPT/HCPCS: 80053; 82043; 82570; 83735; 87086; 87186 ==

== ENCOUNTER 2023-04-21 10:32 | Outpatient (CLI) | payer BC, SELFPAY ==
--- NOTE | 2023-04-21 11:00 | CRLHL7_ITS ---
For Patients: As a result of the Century Cures Act, medical imaging exams and procedure reports are released immediately into your electronic medical record. You may view this report before your referring provider. If you have questions, please contact your health care provider. INDICATION: left calf pain and swelling COMPARISON: None. TECHNIQUE: A compression venous ultrasound exam was performed of the left lower extremity using cochran-scale imaging, color Doppler and spectral Doppler analysis. FINDINGS: Sonographic imaging of the left lower extremity demonstrates normal compressibility and color Doppler venous blood flow within the common femoral vein, deep femoral vein, and the proximal greater saphenous vein. Within the thigh, the femoral vein is patent and compressible. At a lower level, the popliteal and posterior tibial veins also show normal compressibility and color Doppler venous blood flow. Limited imaging of the contralateral groin demonstrates a normal spectral waveform and color Doppler venous blood flow within the right common femoral vein. IMPRESSION: Normal venous ultrasound exam. No evidence of deep vein thrombosis within the left lower extremity. Dictated by Humza Chavarria MD @ 04/21/2023 11:38:06 AM (Electronically Signed)
== END 2023-04-21 10:33 | disposition home or self-care (01) ==
PROVIDERS: PCP Family Medicine; Visit Provider Family Medicine
DX: M79.605 Pain in left leg (principal); R22.42 Localized swelling, mass and lump, left lower limb
CPT/HCPCS: 93971

== ENCOUNTER 2023-05-21 09:44 | Outpatient (CLI) | payer BC, SELFPAY | END 2023-05-21 09:45 | disposition home or self-care (01) | LOC: FRMREF 09:45 | PROVIDERS: PCP Family Medicine; Visit Provider Family Medicine | DX: G89.4 Chronic pain syndrome (principal); N18.30 Chronic kidney disease, stage 3 unspecified; R80.9 Proteinuria, unspecified; N39.0 Urinary tract infection, site not specified | CPT/HCPCS: 80053; 80061; 82043; 82570; 84443 ==

== ENCOUNTER 2023-06-06 09:48 | Outpatient (CLI) | payer BC, SELFPAY ==
--- NOTE | 2023-06-06 10:15 | CRLHL7_ITS ---
For Patients: As a result of the Century Cures Act, medical imaging exams and procedure reports are released immediately into your electronic medical record. You may view this report before your referring provider. If you have questions, please contact your health care provider. INDICATION: Proteinuria. Renal artery stenosis complicated by acute kidney injury. COMPARISON: None available. TECHNIQUE: Ultrasound examination of the retroperitoneum was performed with attention to the kidneys. FINDINGS: There is mild bilateral renal cortical atrophy, with thinning of the cortex. Cortical echogenicity is normal however. The kidneys are otherwise normal in their size, shape, and location. There is no sign of hydronephrosis. The right kidney measures 9.3 x 3.6 x 3.8 cm. The left kidney measures 10.2 x 4.0 x 3.5. cm. There is normal color Doppler flow in both kidneys. The acceleration times in both renal arteries is normal at 40 milliseconds, well below the 70 millisecond threshold to suggest renal stenosis. Normal early systolic peaks are present. However, there resistive indices are mildly elevated throughout both kidneys, measuring between 0.8 and 0.7 centimeters in both kidneys. The urinary bladder is not included on today study. IMPRESSION: Mildly elevated resistive indices in both kidneys, suggesting renal parenchymal disease. No sign of any other abnormalities suggest renal artery stenosis. Mild bilateral renal cortical atrophy. No sign of hydronephrosis. Dictated by Tristan Nelson MD @ 06/07/2023 6:10:39 PM (Electronically Signed)
== END 2023-06-06 09:49 | disposition home or self-care (01) ==
LOC: US 09:49
PROVIDERS: PCP Family Medicine; Visit Provider Family Medicine
DX: R80.9 Proteinuria, unspecified (principal); I77.1 Stricture of artery
CPT/HCPCS: 76775; 93975

== ENCOUNTER 2023-08-07 19:21 | Inpatient (IN) | payer BC, SELFPAY ==
[2023-08-07 19:30] VITALS: O2SAT 96
[2023-08-07] MEDS: 0.9 % SODIUM CHLORIDE 1000 ml 1,000 ML IV ×2 (19:30→20:32)
[2023-08-07 19:33] VITALS: BP 176/58; PULSE 76; RESP 18; TEMP 36.6; O2SAT 85; BMI 25.6
[2023-08-07 19:35] VITALS: O2SAT 92
[2023-08-07 19:41] LABS: Lactate* 1.2 mmol/L (0.5-1.9)
[2023-08-07 19:56] LABS: Chloride* 99 mmol/L (96-114); Sodium* 139 mmol/L (135-149)
[2023-08-07 19:57] LABS: Potassium* 4.4 mmol/L (3.6-5.1)
[2023-08-07 19:59] LABS: Anion Gap 10 mEq/L (7-15); Basophils Absolute Auto 0.02 K/uL (0.00-0.30); Basophils Percent Auto 0.2 % (0.0-3.0); Carbon Dioxide* 30 mmol/L (20-32); Creatinine* 1.7 mg/dL (0.5-1.5); Eosinophils Absolute Auto 0.34 K/uL (0.00-0.50); Eosinophils Percent Auto 4.1 % (0.0-7.0); Est. Creatinine Clearance* 22.96; Estimated Glomerular Filt Rate 31 ml/min; Hematocrit 41.3 % (33.0-51.0); Hemoglobin* 13.6 gm/dL (12.0-16.0); Immature Granulocytes Abs Auto 0.01 K/uL (0.00-0.30); Immature Granulocytes Pct Auto 0.1 %; Lymphocytes Percent Auto 11.5 % (20-44); Mean Corpuscular HGB Conc 33 gm/dL (32-36); Mean Corpuscular Hemoglobin 32 pg (26-34); Mean Corpuscular Volume 97 fL (80-100); Monocytes Percent Auto 6.9 % (0.0-11.0); Neutrophils Percent Auto 77.2 % (42.0-72.0); Platelet Count* 221 K/uL (140-440); RDW Coefficient of Variation % 12.7 % (11.5-15.5); Red Blood Count 4.24 m/uL (4.00-5.20); White Blood Count* 8.32 K/uL (4.50-11.00)
[2023-08-07 20:00] LABS: Blood Urea Nitrogen* 43 mg/dL (7-30); Calcium* 9.4 mg/dL (8.4-10.6); Glucose* 176 mg/dL (60-115)
[2023-08-07 20:07] LABS: Slide Review Reflex No
--- NOTE | 2023-08-07 20:13 | ED.GENADULT ---
HPI - General Adult General Date Seen: 08/07/23 Chief complaint: Diarrhea Stated complaint: weakness Time Seen by Provider: 08/07/23 19:45 History of Present Illness HPI narrative: This is a 72-year-old female with a complex past medical history. Past medical history includes multiple sclerosis, chronic kidney disease, type 2 diabetes, hypertriglyceridemia, microalbuminuria, pulmonary nodule, arthritis, lumbar radiculopathy, hypertension, COPD, carotid stenosis, anxiety, hypoxia, chronic pain, hyperkalemia. According to her most recent primary care visit-in the medical record; 07/30, PCP visit, Dr. Rowan Notes indicate she was recently started on carvedilol. Body felt shaky. She is on amlodipine 5 mg daily for blood pressure, carvedilol 12.5 mg b.i.d., For diabetes she is on , glimepiride Farxiga for CHF Simvastatin for cholesterol Aripiprazole for GERD Baby aspirin Baclofen, buprenorphine transdermal patches Akiko is 72yo female patient presents for follow-up of elevated blood pressure with complaints of feeling jittery and shakey since starting new medication, as recommended by nephrology. She is unable to assess if the changes came with the carvedilol or the farxiga, and she does not monitor blood pressures at home. In addition, she states she has concerns regarding the pain management clinic, as she is unwilling to sign paperwork stating she is an addict to receive help. She verbalizes understanding that we do not monitor chronic pain management in the family medicine clinic, but she also states that she does not understand why her escalating dosing as well as her early refill requests are concerns. She continues to c/o having pain all over the body, ankles, knees, hips. From previous: 'Her history is significant for a pelvic fracture in 07/2022 with routine healing noted from last orthopedic note. She has previously refused physical therapy multiple times, as she has had difficulty obtaining transportation. Previously, patient been maintained on hydrocodone 7.5mg/325mg 1 PO BID for pain control associated with chronic pain and history of multiple sclerosis which was discontinued due to overuse of medication.' She has not been taking any narcotic pain medications since 02/2023. While frustrated with pain control, she has returned to some of her previous activities at her living facility. She lives at [facility], in their assisted living facility. Akiko does get around precariously, with assistance of a walker, and reports not exercising regularly, for obvious concerns regarding chronic pain and inability to easily move. Otherwise, the patient feels her chronic conditions, which include DM, COPD, DECLAN with depression, and MS are poorly controlled with uncontrolled pain again reported. Patient reports that she is here from her [place] at [facility] for diarrhea and shakiness and weakness. She reports that 2 nights ago she had an incontinent large volume watery stool while she was sleeping at roughly 3:00 a.m.. She had another incontinent watery diarrheal stool this morning at around 4:00 a.m. while she sleeping. She has not had any further diarrhea. No vomiting. No abdominal pain. She has not been able to drink much fluids, because she says she always has trouble drinking enough fluids so she is feeling shaky and weak and dehydrated. She was recently started on a new blood pressure medicine, ?that starts with C?-possibly chlorthalidone. Review of medical record indicates that she was actually started on carvedilol She was also recently started on Farxiga out to protect her kidneys. She knows that she needs to drink plenty of fluids to stay hydrated on that medication. She is noted to be hypoxic here in the ER. She says she is not really feeling short of breath. She has had a cough for about a month or so. She initially tells me that she does not have any underlying lung disease but then recalls that she has been seeing a [employer] [facility] in [place] at the [facility] apparently in follow-up for a large lung nodule or mass and also is in the process for getting a workup for hypoxia. She recalls that she had been on home oxygen at night when she lived in [place]. When she moved to [place] 4 years ago she did not qualify for at night oxygen so has not had it since then. She is hypoxic with oxygen sats down into the low 80s on room air. She has had a cough lately. It sounds like a nonproductive. No fever. She is not feeling short of breath. No chest pain. She does have some chronic bilateral ankle edema that tends to get worse in the evening and better in the morning. Currently taking carvedilol, amlodipine, and farxiga for hypertension, see MAR. Patient has not been checking blood pressures regularly. Patient denies symptoms of high or low blood pressures including headache, vision changes, or flushing. She denies chest pain, shortness of breath (apart from with exertion), or dizziness. Related Data Home Medications Medication Instructions Recorded Confirmed aspirin 81 mg tablet,delayed 162 mg PO QDAY 06/10/22 07/30/23 release (Adult Low Dose Aspirin) calcium carbonate 600 mg calcium 600 mg PO BID 12/16/22 07/30/23 (1,500 mg) tablet (Calcium) cholecalciferol (vitamin D3) 50 50 mcg PO QDAY 12/16/22 07/30/23 mcg (2,000 unit) capsule docusate sodium 100 mg capsule 100 mg PO .ud 12/16/22 07/30/23 (Colace) ferrous sulfate 325 mg (65 mg 325 mg PO QDAY 12/16/22 07/30/23 iron) tablet magnesium 250 mg tablet 250 mg PO QDAY 12/16/22 07/30/23 omega 6-sqt-wow-fish oil 1,000 mg 1 cap PO BID 12/16/22 07/30/23 (120 mg-180 mg) capsule [id number] 1 tab PO DAILY 12/16/22 07/30/23 ascorbic acid (vitamin C) 1,000 mg 1,000 mg PO DAILY 05/21/23 07/30/23 tablet (Vitamin C) docosahexaenoic acid 200 mg mg PO 05/21/23 07/30/23 capsule ( DHA) estradiol 0.01% (0.1 mg/gram) vaginal 05/21/23 07/30/23 vaginal cream dapagliflozin propanediol 5 mg 5 mg PO QAM 07/01/23 07/30/23 tablet (Farxiga) gabapentin 6%,Ketamine topical 07/30/23 07/30/23 8%,Lidocaine 2.5% liposomal cream Previous Rx's Medication Instructions Recorded sennosides 8.6 mg-docusate sodium 1 tab PO BID PRN #30 tabs 06/04/22 50 mg tablet (Stool Softener-Laxative) diclofenac sodium 1 % topical gel 2 g topical QID #100 grams 03/26/23 duloxetine 60 mg capsule,delayed 60 mg PO BID #60 caps 07/17/23 release glimepiride 1 mg tablet 0.5 mg (1/2 x 1 mg) PO QDAY #15 05/05/23 tabs simvastatin 40 mg tablet 40 mg PO HS #90 tabs 05/26/23 lidocaine 4 % topical patch 1 patch topical BID PRN pain #30 ea 07/03/23 (Aspercreme (lidocaine)) ipratropium bromide 21 mcg (0.03 2 spray intranasal 3XD PRN for 07/09/23 %) nasal spray allergies #30 mL carvedilol 12.5 mg tablet 12.5 mg PO BID #180 tabs 07/17/23 levothyroxine 75 mcg tablet 75 mcg PO DAILY #90 tabs 07/24/23 diltiazem HCl 60 mg 60 mg PO BID #30 caps 07/30/23 capsule,extended release 12 hr gabapentin 600 mg tablet 600 mg PO QHS #90 tabs 07/30/23 aripiprazole 10 mg tablet 10 mg PO QPM #30 tabs 07/31/23 baclofen 10 mg tablet 20 mg (2 x 10 mg) PO BID #120 tabs 07/31/23 Allergies Allergy/AdvReac Type Severity Reaction Status Date / Time ketorolac [From Toradol] Allergy Intermediate Agitated Verified 08/07/23 23:04 codeine Allergy Verified 08/07/23 23:04 [facility] Medical History (Updated 08/07/23 @ 23:45 by Roman Barrientos MD) Atrophic rhinitis ?J31.0 - Chronic rhinitis (ICD-10) Anxiety ?F41.9 - Anxiety disorder, unspecified (ICD-10) Elevated cholesterol ?E78.00 - Pure hypercholesterolemia, unspecified (ICD-10) Arthritis ?M19.90 - Unspecified osteoarthritis, unspecified site (ICD-10) Sleep apnea ?G47.30 - Sleep apnea, unspecified (ICD-10) History of benzodiazepine use ?Z87.898 - Personal history of other specified conditions (ICD-10) Hypoxia ?R09.02 - Hypoxemia (ICD-10) History of fracture of left hip ?Z87.81 - Personal history of (healed) traumatic fracture (ICD-10) Fall ?W19.XXXA - Unspecified fall, initial encounter (ICD-10) Acute electrocardiogram changes ?R94.31 - Abnormal electrocardiogram [ECG] [EKG] (ICD-10) Closed fracture of left hip requiring operative repair ?S72.002A - Fracture of unspecified part of neck of left femur, initial encounter for closed fracture (ICD-10) MAKAYLA on CPAP ?G47.33 - Obstructive sleep apnea (adult) (pediatric) (ICD-10) ?Z99.89 - Dependence on other enabling machines and devices (ICD-10) Osteoporosis ?M81.0 - Age-related osteoporosis without current pathological fracture (ICD-10) Valvular heart disease ?I38 - Endocarditis, valve unspecified (ICD-10) Myocardial infarction ?I21.9 - Acute myocardial infarction, unspecified (ICD-10) Mass of right lung ?R91.8 - Other nonspecific abnormal finding of lung field (ICD-10) Hypothyroid ?E03.9 - Hypothyroidism, unspecified (ICD-10) HTN (hypertension) ?I10 - Essential (primary) hypertension (ICD-10) DECLAN (generalized anxiety disorder) ?F41.1 - Generalized anxiety disorder (ICD-10) Dyslipidemia ?E78.5 - Hyperlipidemia, unspecified (ICD-10) Diabetes mellitus ?E11.9 - Type 2 diabetes mellitus without complications (ICD-10) Acute depression ?F32.A - Depression, unspecified (ICD-10) COPD (chronic obstructive pulmonary disease) ?J44.9 - Chronic obstructive pulmonary disease, unspecified (ICD-10) CAD (coronary artery disease) ?I25.10 - Atherosclerotic heart disease of [place] coronary artery without angina pectoris (ICD-10) Multiple sclerosis ?G35 - Multiple sclerosis (ICD-10) Surgical History Status post-operative repair of closed fracture of left hip (1998) ?Z98.890 - Other specified postprocedural states (ICD-10) ?Z87.81 - Personal history of (healed) traumatic fracture (ICD-10) History of tonsillectomy ?Z90.89 - Acquired absence of other organs (ICD-10) History of percutaneous coronary intervention (04/09/05) ?Z98.61 - Coronary angioplasty status (ICD-10) History of hysterectomy ?Z90.710 - Acquired absence of both cervix and uterus (ICD-10) History of colonoscopy ?Z98.890 - Other specified postprocedural states (ICD-10) History of toe surgery ?Z98.890 - Other specified postprocedural states (ICD-10) History of coronary artery stent placement ?Z95.5 - Presence of coronary angioplasty implant and graft (ICD-10) Family History Father CHF (congestive heart failure) Other Coronary artery disease Diabetes Mental disorder Seizure disorder Social History Narrative: No smoker Does not drink alcohol Does not use illicit drugs Highest level of school completed/degree received: some college, no degree Smoking Status: Former smoker Do you use any of these nicotine containing products: None Second hand tobacco smoke exposure: No How often do you have a drink containing alcohol: never AUDIT-C Alcohol total score: 0 Non-prescribed substance use: denies use Caffeine: Yes (1 cup coffee per day) Little interest or pleasure in doing things: nearly every day Feeling down, depressed, or hopeless: nearly every day service: No Exam Const: Vital Signs, click to edit/add: Vital Signs - 24 hr 08/07/23 19:33 08/07/23 19:35 Temperature 97.9 F Pulse Rate [Pulse Oximeter] 76 Respiratory Rate 18 Blood Pressure [Ri ght Upper Arm] 176/58 H Pulse Oximetry 85 L 92 Oxygen Delivery Me thod Room Air Nasal Cannula Oxygen Flow Rate 1 Course Vital Signs Vital signs: Initial Vital Signs Temperature 97.9 F 08/07/23 19:33 Temperature Source Temporal Artery Scan 08/07/23 19:33 Pulse Rate 76 08/07/23 19:33 Respiratory Rate 18 08/07/23 19:33 Blood Pressure 176/58 H 08/07/23 19:33 Blood Pressure Mean 97 08/07/23 19:33 Blood Pressure Position Supine 08/07/23 19:33 Pulse Oximetry 85 L 08/07/23 19:33 Oxygen Delivery Method Room Air 08/07/23 19:33 Vital Signs Temperature 97.9 F 08/07/23 19:33 Pulse Rate 76 08/07/23 19:33 Respiratory Rate 18 08/07/23 19:33 Blood Pressure 176/58 H 08/07/23 19:33 Pulse Oximetry 85 L 08/07/23 19:33 Oxygen Delivery Method Room Air 08/07/23 19:33 Temperature 97.9 F 08/07/23 19:33 Pulse Rate 76 10/26/23 19:33 Respiratory Rate 18 08/07/23 19:33 Blood Pressure 176/58 H 08/07/23 19:33 Pulse Oximetry 92 08/07/23 19:35 Oxygen Delivery Method Nasal Cannula 08/07/23 19:35 Oxygen Flow Rate 1 08/07/23 19:35 Medical Decision Making MDM Narrative Medical decision making narrative: This is a 72-year-old female presenting to the ER today from [place] for evaluation of shakiness and weakness in the setting of diarrhea. History is a bit confusing here. Initial report was that she had had diarrhea beginning at 5:00 a.m. yesterday evening. However the patient says she actually has had diarrhea at night the past 2 nights. She says she is not actually having any diarrhea today or this afternoon. However she is not able drink much water to hydrate The patient's diarrhea be consistent with a viral GI infection. There is no high fever, severe pain, bilious or bloody emesis, blood or mucous in the stool, severe abdominal pain, or other concerning signs for a bacterial infection. No recent travel or high risk exposure for baceraial pathogen. No recent antibiotics or risk factors for C. diff. exam does not suggest any evidence for appendicitis, bowel obstruction, abscess, bowel perforation, or other surgical emergency. Labs show no concerning electrolyte disturbance she does have a slight increase in her creatinine up from 1.3 on 05/21 to 1.7 tonight. She has not actually had any diarrhea since early this morning around 4:00 a.m.. No vomiting. However she does feel very shaky and weak which she attributes to dehydration. After 2 L of IV fluid She continues to feel mildly weak. Glucose is slightly elevated at 176. No evidence for DKA. No hypoglycemia from diarrhea. She is also found to be hypoxic here in the ER tonight. She reports that she does have a history of hypoxia dating back several years ago when she lived in [place]. However, It sounds like she had been on oxygen at home for that but has not been for the past few years. I suspect that this degree of hypoxia is probably new. She also has a history of COPD, but no wheezing on her exam tonight. She is not wheezing to suggest COPD exacerbation. Venous blood gas shows normal pH in the setting of elevated pCO2 which would suggest she has a chronic CO2 retainer but not having an acute episode of hypercarbia. She also has a recent cough. Differential is broad. Chest x-rays obtained to look for pneumonia. By my read I think it shows multiple small areas of consolidation also a left upper lobe toward dense consolidation which may be her previously known lung mass. However Radiology says that her chest x-ray is clear. In terminal proBNP is minimally abnormal at 494. Troponin is normal at 0.01. EKG shows no definite ischemia or arrhythmia. D-dimer is abnormal prompting CT scan of her lungs to look for PE. CT scan is negative for PE but does show evidence for bilateral ground-glass infiltrates suspicious for pneumonia. She is negative for COVID. Will treat for possible bacterial pneumonia with Rocephin and Zithromax. She does have mild acute renal insufficiency with a slight bump in her creatinine. Likely due to dehydration from her illness. Her hypoxia stabilized on nasal cannula. Sats are now in the 90s. She is not requiring positive-pressure ventilation or showing signs of respiratory fatigue or impending respiratory failure. She does have pneumonia. She has generalized weakness but otherwise stable blood pressure. No clear evidence for severe sepsis or septic shock. White count normal. Blood cultures pending. Lactic acid normal. Blood pressure remaining stable here in the ER so far. At this point with reasonable clinical competence I think she is stable for admission to the medical floor. Discussed with the overnight tele hospitalist at 12:02 p.m.. He graciously accepts this patient for admission. Lab Data Labs: Lab Results 08/07/23 08/07/23 08/07/23 Range/Units 19:35 20:15 20:28 WBC 8.32 (4.50-11.00) K/uL RBC 4.24 (4.00-5.20) m/uL Hgb 13.6 (12.0-16.0) gm/dL Hct 41.3 (33.0-51.0) % MCV 97 (80-100) fL MCH 32 (26-34) pg MCHC 33 (32-36) gm/dL RDW Coeff of [place] 12.7 (11.5-15.5) % Plt Count 221 (140-440) K/uL Neut % (Auto) 77.2 H (42.0-72.0) % Lymph % (Auto) 11.5 L (20-44) % [place] % (Auto) 6.9 (0.0-11.0) % Eos % (Auto) 4.1 (0.0-7.0) % Baso % (Auto) 0.2 (0.0-3.0) % Neut # (Auto) 6.40 (1.7-7.0) K/uL Lymph # (Auto) 1.00 (0.90-2.90) K/uL [place] # (Auto) 0.60 (0.00-0.90) K/UL Eos # (Auto) 0.34 (0.00-0.50) K/uL Baso # (Auto) 0.02 (0.00-0.30) K/uL Abs Immat Gran (auto) 0.01 (0.00-0.30) K/uL Imm/Tot Granulo (auto) 0.1 % D-Dimer Quant (PE/DVT) 1.67 H (0.00-0.50) ug/ml VBG pH 7.359 (7.32-7.43) VBG pCO2 58 H (40-50) mmHG VBG pO2 45.6 (25-47) mmHG VBG HCO3 33 H (21-28) mmol/L Sodium 139 (135-149) mmol/L Potassium 4.4 (3.6-5.1) mmol/L Chloride 99 (96-114) mmol/L Carbon Dioxide 30 (20-32) mmol/L Anion Gap 10 (7-15) mEq/L BUN 43 H (7-30) mg/dL Creatinine 1.7 H (0.5-1.5) mg/dL Estimated Creat Clear 22.96 Estimated GFR 31 ml/min Glucose 176 H (60-115) mg/dL Lactate 1.2 (0.5-1.9) mmol/L Calcium 9.4 (8.4-10.6) mg/dL Troponin I 0.01 (0.01-0.04) ng/mL NT-Pro-B Natriuret Pep 494 pg/mL SARS-CoV-2 (PCR) Negative SARS-CoV-2 (Negative) Influenza Type A (PCR) Negative PCR FLU A (Negative) Influenza Type B (PCR) Negative PCR FLU B (Negative) RSV (PCR) Negative PCR RSV (Negative) Lab Acknowledgement Test Added ECG Data Attestation: I personally reviewed and interpreted this ECG as follows: Interpretation: Normal sinus rhythm rate 75 VT 150 QRS axis normal axis. Questionable voltage criteria for LVH. ST segment/T wave: No ST segment elevation or depression. QTc: 413 Discharge Plan Discharge Clinical Impression: Acute dehydration, Dizziness, Diarrhea, Pulmonary nodule, Hypoxia, Pneumonia Patient Disposition: Admitted As Observation
--- NOTE | 2023-08-07 20:16 | CRLHL7_ITS ---
For Patients: As a result of the Cures Act, medical imaging exams and procedure reports are released immediately into your electronic medical record. You may view this report before your referring provider. If you have questions, please contact your health care provider. INDICATION: Hypoxia. TECHNIQUE: Chest 2 views. COMPARISON: None. FINDINGS: Cardiovascular and mediastinum: Heart size and vasculature are normal in caliber and appearance. Aortic atherosclerotic calcifications. Lungs and pleural spaces: Emphysema. No focal consolidation. No pleural effusions or pneumothorax. Bones and soft tissues: No significant findings. IMPRESSION: Emphysema. No focal consolidation. Dictated by Jovani Bauer MD @ 08/07/2023 9:59:29 PM (Electronically Signed)
[2023-08-07 20:37] LABS: HCO3 VBG 33 mmol/L (21-28); PCO2 VBG 58 mmHG (40-50); PO2 VBG 45.6 mmHG (25-47); pH VBG 7.359 (7.32-7.43)
[2023-08-07 21:16] LABS: PCR FLU A Negative PCR FLU A (Negative); PCR FLU B Negative PCR FLU B (Negative); PCR RSV Negative PCR RSV (Negative)
[2023-08-07 21:18] LABS: NT Pro B Type NatriureticPept* 494 pg/mL; Troponin I* 0.01 ng/mL (0.01-0.04)
[2023-08-07 21:48] LABS: D Dimer Quantitative* 1.67 ug/ml (0.00-0.50)
--- NOTE | 2023-08-07 22:17 | CRLHL7_ITS ---
For Patients: As a result of the Century Cures Act, medical imaging exams and procedure reports are released immediately into your electronic medical record. You may view this report before your referring provider. If you have questions, please contact your health care provider. INDICATION: Hypoxia, abnormal D-dimer. TECHNIQUE: CT chest PE was acquired with 95 cc Isovue 370 IV contrast. COMPARISON: None. FINDINGS: Heart and vasculature: Contrast opacification of the pulmonary arterial tree is adequate. No sign of pulmonary embolism. Cardiomegaly with coronary artery calcification. Thoracic aorta and pulmonary artery are normal in caliber. Lungs and pleura: Biapical scarring. Diffuse ground-glass opacification throughout the lungs. Indeterminate 2.0 centimeter medial right lobe pulmonary nodule. No pleural effusions, pleural thickening, or pneumothorax. Lymph nodes/mediastinum: No mediastinal, hilar, or axillary adenopathy. Chest wall: No masses. Upper abdomen: No acute or significant findings. Bones: Unremarkable for age. IMPRESSION: No pulmonary embolism. Diffuse ground-glass opacification of the lungs, likely pneumonia. Indeterminate 2.0 centimeter medial right lower lobe pulmonary nodule. This might correlate with documented history of treated right lower lobe malignancy. Recommend correlation with prior imaging to evaluate for interval change. If not available, recommend repeat CT scan in 3 months to evaluate for interval change. Biapical scarring/fibrosis. Cardiomegaly with coronary artery calcifications. Please note that all CT scans at this facility use dose modulation, iterative reconstruction, and/or weight-based dosing when appropriate to reduce radiation dose to as low as reasonably achievable. Dictated by Rudolph Donis MD @ 08/07/2023 11:28:22 PM (Electronically Signed)
[2023-08-07 22:35] LABS: SARS PCR* Negative SARS-CoV-2 (Negative)
[2023-08-07 23:01] VITALS: BP 157/61; PULSE 80; RESP 16; O2SAT 92
--- NOTE | 2023-08-07 23:11 | ED.NURSE ---
pt assisted to the commode, given new incontinence pad, and helped back into bed
[2023-08-07 23:32] VITALS: BP 142/51; PULSE 72; RESP 16; O2SAT 95
[2023-08-08] VITALS (12 sets, daily range): BP systolic 145–177; BP diastolic 55–78; PULSE 67–78; RESP 16–22; TEMP 36.4–36.8; O2SAT 89–96; BMI 25.5
[2023-08-08] MEDS: cefTRIAXone 1 GM in 0.9 % SODIUM CHLORIDE Mini-bag 100 ML IVPB (00:08)
[2023-08-08] MEDS: AZITHROMYCIN 500 MG in 0.9 % SODIUM CHLORIDE 250 ml 250 ML 255 MG IVPB (00:44)
--- NOTE | 2023-08-08 03:42 | W.PM.TELEH&P ---
Telehealth- H&P: HPI History of Present Illness Date Seen: 08/08/23 Chief complaint: weakness Narrative: Akiko Velázquez is seen as an Interactive Telehealth visit. Akiko Velázquez is a 72 year old male who is Seen in her room at [facility]. She has been admitted through the emergency room. She is somewhat of a poor historian and difficult to get a history from.She tells me she has been feeling poorly for the last couple of daysShe currently resides in the custodial. She has had episodes of diarrhea around 3 in the morning for the last 2 days that woke her up. She soiled her bed. She has chronic problems with shaking and what appears to be chronic pain but seems to have been worse over the last month. She has been coughing it has been nonproductive. As she was not feeling good she decided to come to the emergency room after urging from the custodial staff at her friends. She was found to be hypoxic. Patient also underwent a CT scan of the chest which was negative for pulmonary embolism but showed bilateral infiltrates. Patient was felt to have probable pneumonia. Patient was negative for RSV and COVID. She has now been admitted to the hospital floor for further evaluation and treatment. Review of Systems Narrative: A complete review of systems was performed positive pertinence and negatives per the HPI. [facility] Medical History (Updated 08/08/23 @ 03:43 by Marlo La DO) Atrophic rhinitis ?J31.0 - Chronic rhinitis (ICD-10) Anxiety ?F41.9 - Anxiety disorder, unspecified (ICD-10) Elevated cholesterol ?E78.00 - Pure hypercholesterolemia, unspecified (ICD-10) Arthritis ?M19.90 - Unspecified osteoarthritis, unspecified site (ICD-10) Sleep apnea ?G47.30 - Sleep apnea, unspecified (ICD-10) History of benzodiazepine use ?Z87.898 - Personal history of other specified conditions (ICD-10) Hypoxia ?R09.02 - Hypoxemia (ICD-10) History of fracture of left hip ?Z87.81 - Personal history of (healed) traumatic fracture (ICD-10) Fall ?W19.XXXA - Unspecified fall, initial encounter (ICD-10) Acute electrocardiogram changes ?R94.31 - Abnormal electrocardiogram [ECG] [EKG] (ICD-10) Closed fracture of left hip requiring operative repair ?S72.002A - Fracture of unspecified part of neck of left femur, initial encounter for closed fracture (ICD-10) MAKAYLA on CPAP ?G47.33 - Obstructive sleep apnea (adult) (pediatric) (ICD-10) ?Z99.89 - Dependence on other enabling machines and devices (ICD-10) Osteoporosis ?M81.0 - Age-related osteoporosis without current pathological fracture (ICD-10) Valvular heart disease ?I38 - Endocarditis, valve unspecified (ICD-10) Myocardial infarction ?I21.9 - Acute myocardial infarction, unspecified (ICD-10) Mass of right lung ?R91.8 - Other nonspecific abnormal finding of lung field (ICD-10) Hypothyroid ?E03.9 - Hypothyroidism, unspecified (ICD-10) HTN (hypertension) ?I10 - Essential (primary) hypertension (ICD-10) DECLAN (generalized anxiety disorder) ?F41.1 - Generalized anxiety disorder (ICD-10) Dyslipidemia ?E78.5 - Hyperlipidemia, unspecified (ICD-10) Diabetes mellitus ?E11.9 - Type 2 diabetes mellitus without complications (ICD-10) Acute depression ?F32.A - Depression, unspecified (ICD-10) COPD (chronic obstructive pulmonary disease) ?J44.9 - Chronic obstructive pulmonary disease, unspecified (ICD-10) CAD (coronary artery disease) ?I25.10 - Atherosclerotic heart disease of robinson coronary artery without angina pectoris (ICD-10) Multiple sclerosis ?G35 - Multiple sclerosis (ICD-10) Surgical History Status post-operative repair of closed fracture of left hip (1998) ?Z98.890 - Other specified postprocedural states (ICD-10) ?Z87.81 - Personal history of (healed) traumatic fracture (ICD-10) History of tonsillectomy ?Z90.89 - Acquired absence of other organs (ICD-10) History of percutaneous coronary intervention (04/09/05) ?Z98.61 - Coronary angioplasty status (ICD-10) History of hysterectomy ?Z90.710 - Acquired absence of both cervix and uterus (ICD-10) History of colonoscopy ?Z98.890 - Other specified postprocedural states (ICD-10) History of toe surgery ?Z98.890 - Other specified postprocedural states (ICD-10) History of coronary artery stent placement ?Z95.5 - Presence of coronary angioplasty implant and graft (ICD-10) Family History Father CHF (congestive heart failure) Other Coronary artery disease Diabetes Mental disorder Seizure disorder Social History Narrative: No smoker Does not drink alcohol Does not use illicit drugs What is your current living situation?: I presently have a place to live Problems where you live: no known problems Problems where you live details: n/a In the past 12 months, utilities in danger of being shut off: no In past 12 months, lack of transportation kept you from medical appts, meetings, work, or getting things needed for daily living: yes In the past 12 mos, have been you worried that your food would run out before you had money to buy more?: never true In the past 12 mos, the food you bought just didn't last and you didn't have money to buy more?: never true Highest level of school completed/degree received: some college, no degree Smoking Status: Former smoker Do you use any of these nicotine containing products: None Second hand tobacco smoke exposure: No How often do you have a drink containing alcohol: monthly or less AUDIT-C Alcohol total score: 1 Non-prescribed substance use: denies use Caffeine: Yes (coffee) How often does anyone, including family, friends and others, physically hurt you: never How often does anyone, including family, friends and others, insult or talk down to you: never How often does anyone, including family, friends and others, threaten you with harm: never How often does anyone, including family, friends and others, scream or curse at you: never Little interest or pleasure in doing things: nearly every day Feeling down, depressed, or hopeless: nearly every day service: No Meds Home Medications and Allergies Home Medications Medication Instructions Recorded Confirmed Type aspirin 81 mg tablet,delayed 162 mg PO QDAY 06/10/22 07/30/23 History release (Adult Low Dose Aspirin) calcium carbonate 600 mg calcium 600 mg PO BID 12/16/22 07/30/23 History (1,500 mg) tablet (Calcium) cholecalciferol (vitamin D3) 50 50 mcg PO QDAY 12/16/22 07/30/23 History mcg (2,000 unit) capsule docusate sodium 100 mg capsule 100 mg PO .ud 12/16/22 07/30/23 History (Colace) ferrous sulfate 325 mg (65 mg 325 mg PO QDAY 12/16/22 07/30/23 History iron) tablet magnesium 250 mg tablet 250 mg PO QDAY 12/16/22 07/30/23 History omega 8-neb-nwx-fish oil 1,000 mg 1 cap PO BID 12/16/22 07/30/23 History (120 mg-180 mg) capsule woalnnbj-dpa-Cj-FA 1 tab PO DAILY 12/16/22 07/30/23 History ascorbic acid (vitamin C) 1,000 mg 1,000 mg PO DAILY 05/21/23 07/30/23 History tablet (Vitamin C) docosahexaenoic acid 200 mg mg PO 05/21/23 07/30/23 History capsule ( DHA) estradiol 0.01% (0.1 mg/gram) vaginal 05/21/23 07/30/23 History vaginal cream dapagliflozin propanediol 5 mg 5 mg PO QAM 07/01/23 07/30/23 History tablet (Farxiga) gabapentin 6%,Ketamine topical 07/30/23 07/30/23 History 8%,Lidocaine 2.5% liposomal cream Allergies Allergy/AdvReac Type Severity Reaction Status Date / Time ketorolac [From Toradol] Allergy Intermediate Agitated Verified 08/07/23 23:04 codeine Allergy Verified 08/07/23 23:04 Exam Narrative Exam Narrative: Physical Exam GENERAL: ?vital signs reviewed, well developed and nourished, in no distress, Patient with oxygen in place HEENT: pupils are equal round and reactive to light, extraocular movements are grossly within normal limits and oral mucosa is moist. NECK: Supple without lymphadenopathy or thyromegaly according to nursing staff examination observation HEART: Regular rate and rhythm With a marked crescendo decrescendo murmur, No rubs, or gallops. LUNGS: Clear to auscultation bilaterally with good air movement throughout ABDOMEN: Observation from nurse assisted exam, abdomen appears soft, Very mild tenderness right lower quadrant no rebound guarding or peritoneal signs, . Just very slightly distended with Positive bowel sounds noted. EXTREMITIES: Strength and sensation is observed to be grossly within normal limits in the upper and lower extremities.? No focal strength deficit is observed. SKIN:? Observed warm and dry with color normal Const Vital Signs, click to edit/add: Vital Signs - 24 hr 08/07/23 19:30 08/07/23 19:30 08/07/23 19:33 Temperature 97.9 F Pulse Rate Pulse Rate [Pulse Oximeter] 76 Respiratory Rate 18 Blood Pressure Blood Pressure [Right Arm] Blood Pressure [Right Upper Arm] 176/58 H Pulse Oximetry 96 96 85 L Oxygen Delivery Method Nasal Cannula Room Air Oxygen Flow Rate 1 08/07/23 19:35 08/07/23 23:01 08/07/23 23:32 Temperature Pulse Rate 80 72 Pulse Rate [Pulse Oximeter] Respiratory Rate 16 16 Blood Pressure 157/61 H 142/51 H Blood Pressure [Right Arm] Blood Pressure [Right Upper Arm] Pulse Oximetry 92 92 95 Oxygen Delivery Method Nasal Cannula Oxygen Flow Rate 1 08/08/23 00:00 08/08/23 01:12 08/08/23 01:20 Temperature 98.2 F 98.2 F 97.7 F Pulse Rate 72 Pulse Rate [Pulse Oximeter] 76 75 Respiratory Rate 16 16 20 Blood Pressure 145/78 H Blood Pressure [Right Arm] 166/64 H Blood Pressure [Right Upper Arm] 176/58 H Pulse Oximetry 89 93 Oxygen Delivery Method Nasal Cannula Oxygen Flow Rate 1 Hospitalist - H&P: Result Labs Labs: Short CBC 08/07/23 Range/Units 19:35 WBC 8.32 (4.50-11.00) K/uL Hgb 13.6 (12.0-16.0) gm/dL Hct 41.3 (33.0-51.0) % Plt Count 221 (140-440) K/uL BMP 08/07/23 19:35 Sodium 139 Potassium 4.4 Chloride 99 Carbon Dioxide 30 BUN 43 H Creatinine 1.7 H Glucose 176 H Calcium 9.4 Cardiac Enzymes 08/07/23 Range/Units 19:35 Troponin I 0.01 (0.01-0.04) ng/mL ECG Interpretation: FINDINGS: Heart and vasculature: Contrast opacification of the pulmonary arterial tree is adequate. No sign of pulmonary embolism. Cardiomegaly with coronary artery calcification. Thoracic aorta and pulmonary artery are normal in caliber. Lungs and pleura: Biapical scarring. Diffuse ground-glass opacification throughout the lungs. Indeterminate 2.0 centimeter medial right lobe pulmonary nodule. No pleural effusions, pleural thickening, or pneumothorax. Lymph nodes/mediastinum: No mediastinal, hilar, or axillary adenopathy. Chest wall: No masses. Upper abdomen: No acute or significant findings. Bones: Unremarkable for age. IMPRESSION: No pulmonary embolism. Diffuse ground-glass opacification of the lungs, likely pneumonia. Indeterminate 2.0 centimeter medial right lower lobe pulmonary nodule. This might correlate with documented history of treated right lower lobe malignancy. Recommend correlation with prior imaging to evaluate for interval change. If not available, recommend repeat CT scan in 3 months to evaluate for interval change. Biapical scarring/fibrosis. Cardiomegaly with coronary artery calcifications. Assessment and Plan Assessment and plan (1) Pneumonia: Status: Acute (2) Hypoxia: Status: Acute (3) Pulmonary nodule: Status: Acute (4) Diarrhea: Status: Acute (5) Dizziness: Status: Acute (6) Acute dehydration: Status: Acute (7) Acute renal failure: Status: Acute Plan Pneumonia?clinically seems more viral however COVID is negative RSV is negative influenza negative. At this point we will need to treat as a bacterial pneumonia. We will place her on Rocephin and doxycycline. Patient is coughing with nonproductive cough. Hopefully she will start to feel better fairly quickly. Hypoxia?likely secondary to pneumonia oxygen as needed to keep sats above 90%. Pulmonary nodule patient has been already following up with the pulmonary clinic likely the same nodule but patient will need additional follow-up. 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 Again this will need follow-up at discharge Diarrhea?patient with diarrhea the last 2 nights enough to soil her bed. Patient does not feel like she has any diarrhea currently but as she states sits close to the witching hour. If patient has recurrent diarrhea will send for C. difficile and stool culture. Otherwise we will continue to observe. If she redevelops diarrhea diet may need to be cut back. But for now we will keep her regular diet. Dizziness?likely secondary to dehydration from diarrhea. Normal saline. Acute dehydration?diarrhea normal saline gingerly over the evening. Patient was given a bolus of IV fluid in the emergency room. Acute renal failure?likely prerenal in nature. IV fluids. We will recheck a BMP and CBC in the morning. DVT prophylaxis will use subcutaneous Lovenox. CODE STATUS was discussed on admission patient wishes to be a DNR/DNI. She tells me her family is aware of this. Marlo La DO, Pharm. D. Telehealth: Statement Statement Telehealth Visit: Today's History and Physical is provided via interactive telehealth by Marlo La DO.? Patient is located at [facility].? Provider is located at [facility].? Nursing staff assisted with the patient's exam. The visit being done today meets criteria for a telehealth visit and the patient or patient?s parent/guardian is aware the visit is a telehealth visit. Camera Start Time: 02:58 Camera End Time: 03:16
[2023-08-08] MEDS: 0.9 % SODIUM CHLORIDE 1000 ml 1,000 ML 75 ML IV ×2 (04:38→17:54)
--- NOTE | 2023-08-08 08:15 | PC.NURSE ---
Patient arrived to Med-Surg at 0100. Pleasant, alert and oriented. Ambulates and transfers with assist of one, gait belt and walker. Used gait belt when needing assistance. Denied pain. Occasional dry cough. Bases diminished.
[2023-08-08] MEDS: DOXYCYCLINE HYCLATE 100 MG in 0.9 % SODIUM CHLORIDE Mini-bag 100 ML IVPB ×2 (09:37→20:45)
[2023-08-08] MEDS: SODIUM CHLORIDE 0.9 % (FLUSH) 10 ML SYRINGE 5 ML IVF ×2 (09:38→20:44)
--- NOTE | 2023-08-08 12:54 | P.IMPN_ITS ---
Progress Note: A&P Assessment and plan (1) Pneumonia: Problem details: -continue ceftriaxone and doxycycline -prednisone 40 mg x5 doses -Mucinex b.i.d. -DuoNebs q.i.d., albuterol nebs q.4 hours p.r.n., aerobic, incentive spirometry -respiratory therapy consult for pulmonary support -sputum culture, strep pneumo, Legionella ordered Status: Acute (2) Hypoxia: Problem details: -acute on chronic with mild hypercapnia. VBG pH 7.35, pCO2 58, PO2 45, HC03 33 -oxygen supplementation to maintain saturations 88-92%, continue to wean as able -avoid narcotics -will need outpatient formal sleep study Status: Acute (3) COPD (chronic obstructive pulmonary disease): Problem details: -nebulizers, steroids, aerobic, incentive spirometry, respiratory therapy consult -single dose of IV magnesium, check magnesium in a.m. -continue to monitor Status: Acute (4) Solid nodule of lung greater than 8 mm in diameter: Problem details: -1.7cm partially calcified spiculated nodule in RLL -followed in outpatient setting Status: Acute (5) Diarrhea: Problem details: -with acute dehydration. No stool since admission. -continue gentle IV hydration Status: Acute (6) Diabetes mellitus with macroalbuminuric diabetic nephropathy: Problem details: -A1c 7.6 in May -continue home medications, holding /Farxiga -diabetic diet, glucose checks a.c. at bedtime, low insulin sliding scale Status: Acute (7) Stage 3 chronic kidney disease: Problem details: -creatinine 1.7, baseline 1.3-1.6 -avoid nephrotoxic medications, renally dose antibiotics, gentle IV hydration -continue to monitor with daily BMP Status: Acute (8) HTN (hypertension): Problem details: -continue home medications Status: Acute (9) Multiple sclerosis: Problem details: -at baseline, with declining function reported by patient -continue home medication, avoiding narcotics given acute hypoxia Status: Acute Plan Chronic medical comorbidities: Hypertension, hyperlipidemia, chronic pain, hypothyroidism, macular degeneration, DECLAN/MDD, dizziness Time Spent With Patient Total time spent: Total time spent caring for the patient today was 45 minutes. This includes time spent for the visit reviewing the chart, time spent during the visit, time spent after the visit and documentation and planning in coordination of care. Subjective Date Seen: 08/08/23 Interval history: Patient reports feeling a little better this morning. Continues to require oxygen. Actively coughing. Denies headache. Dizziness is chronic and unchanged. No recent fevers. Denies recent nausea vomiting. Has not had a loose stool since admission. Patient reports she previously used oxygen 1 L nightly and was using nebulizers with a known history of COPD. This was approximately 4 years ago. Is also supposed to have a sleep study done but has never followed through with that. Quit smoking 20 years ago. Exam Narrative: Exam Narrative: PHYSICAL EXAM General: Pleasant, conversant, NAD HEENT: Normocephalic, atraumatic, sclera white, EOMI, oral mucosa moist Cardiovascular: RRR, murmur, No pitting edema Pulmonary: Diffusely diminished without expiratory wheezes. No rhonchi. Active dry cough noted. Neurological: Alert, answering questions appropriately, cranial nerves intact, no focal findings Extremities: No gross joint deformity or swelling. AROMI. Neurovascularly intact Skin: Warm, dry. Const: Vital Signs, click to edit/add: Vital Signs - 24 hr 08/07/23 19:30 08/07/23 19:30 08/07/23 19:33 Temperature 97.9 F Pulse Rate Pulse Rate [Bilate ral Radial] Pulse Rate [Pulse Oximeter] 76 Respiratory Rate 18 Blood Pressure Blood Pressure [Ri ght Arm] Blood Pressure [Ri ght Upper Arm] 176/58 H Pulse Oximetry 96 96 85 L Oxygen Delivery Me thod Nasal Cannula Room Air Oxygen Flow Rate 1 08/07/23 19:35 08/07/23 23:01 08/07/23 23:32 Temperature Pulse Rate 80 72 Pulse Rate [Bilate ral Radial] Pulse Rate [Pulse Oximeter] Respiratory Rate 16 16 Blood Pressure 157/61 H 142/51 H Blood Pressure [Ri ght Arm] Blood Pressure [Ri ght Upper Arm] Pulse Oximetry 92 92 95 Oxygen Delivery Me thod Nasal Cannula Oxygen Flow Rate 1 08/08/23 00:00 08/08/23 01:12 08/08/23 01:20 Temperature 98.2 F 98.2 F 97.7 F Pulse Rate 72 Pulse Rate [Bilate ral Radial] Pulse Rate [Pulse Oximeter] 76 75 Respiratory Rate 16 16 20 Blood Pressure 145/78 H Blood Pressure [Ri ght Arm] 166/64 H Blood Pressure [Ri ght Upper Arm] 176/58 H Pulse Oximetry 89 93 Oxygen Delivery Me thod Nasal Cannula Oxygen Flow Rate 1 08/08/23 01:58 08/08/23 07:30 08/08/23 07:30 Temperature Pulse Rate Pulse Rate [Bilate ral Radial] Pulse Rate [Pulse Oximeter] Respiratory Rate 20 Blood Pressure Blood Pressure [Ri ght Arm] Blood Pressure [Ri ght Upper Arm] Pulse Oximetry 93 96 Oxygen Delivery Me thod Nasal Cannula Nasal Cannula Oxygen Flow Rate 1 1.5 08/08/23 08:15 Temperature 97.7 F Pulse Rate Pulse Rate [Bilate ral Radial] 78 Pulse Rate [Pulse Oximeter] Respiratory Rate 20 Blood Pressure Blood Pressure [Ri ght Arm] 157/58 H Blood Pressure [Ri ght Upper Arm] Pulse Oximetry 96 Oxygen Delivery Me thod Nasal Cannula Oxygen Flow Rate 1.5 Labs Labs: Laboratory Results - last 24 hr 08/07/23 08/07/23 08/07/23 19:35 20:15 20:28 WBC 8.32 RBC 4.24 Hgb 13.6 Hct 41.3 MCV 97 MCH 32 MCHC 33 RDW Coeff of Simba 12.7 Plt Count 221 Neut % (Auto) 77.2 H Lymph % (Auto) 11.5 L [place] % (Auto) 6.9 Eos % (Auto) 4.1 Baso % (Auto) 0.2 Neut # (Auto) 6.40 Lymph # (Auto) 1.00 [place] # (Auto) 0.60 Eos # (Auto) 0.34 Baso # (Auto) 0.02 Abs Immat Gran (auto) 0.01 Imm/Tot Granulo (auto) 0.1 D-Dimer Quant (PE/DVT) 1.67 H VBG pH 7.359 VBG pCO2 58 H VBG pO2 45.6 VBG HCO3 33 H Sodium 139 Potassium 4.4 Chloride 99 Carbon Dioxide 30 Anion Gap 10 BUN 43 H Creatinine 1.7 H Estimated Creat Clear 22.96 Estimated GFR 31 Glucose 176 H Lactate 1.2 Calcium 9.4 Troponin I 0.01 NT-Pro-B Natriuret Pep 494 SARS-CoV-2 (PCR) Negative SARS-CoV-2 Influenza Type A (PCR) Negative PCR FLU A Influenza Type B (PCR) Negative PCR FLU B RSV (PCR) Negative PCR RSV Lab Acknowledgement Test Added
[2023-08-08] MEDS: predniSONE 20 MG TABLET 40 MG PO (15:19)
[2023-08-08] MEDS: IPRAT-ALBUT 0.5-2.5 MG/3 ML NEB 1 NEB IH ×2 (15:19→20:43)
[2023-08-08] MEDS: dilTIAZem 120 MG CAP.ER.24H PO (15:20)
[2023-08-08] MEDS: MAGNESIUM IV 2 GM/50 ML PIGGYBACK IVPB (15:20)
[2023-08-08] MEDS: guaiFENesin 600 MG TAB.ER.12H PO ×2 (15:20→20:44)
--- NOTE | 2023-08-08 16:41 | PC.NURSE ---
shift note: pt up SBA/walker. Pt denies pain. sats decreased to 86% on RA. pt on 0.5L O2 prn with sats maintaining 96%. Pt RR 20-22/min. LS dim. Pt has dry cough. Pt instructed on Aerobika. Murmur present. BP elevated 150's-160's systolic. Dr. Rosen notified. IV patent x2.
[2023-08-08 18:08] LABS: Legionella pneumo Ag Urine L. pneumo Negative (Negative); S pneumo Ag Urine S. pneumo Negative (Negative)
[2023-08-08] MEDS: GABAPENTIN 600 MG TABLET PO (20:43)
[2023-08-08] MEDS: DULOXETINE 30 MG CAPSULE DR 60 MG PO (20:43)
[2023-08-08] MEDS: ENOXAPARIN 40 MG/0.4 ML INJ SUBCUT (20:43)
[2023-08-08] MEDS: carvediloL 6.25 MG TABLET 12.5 MG PO (20:44)
[2023-08-08] MEDS: SIMVASTATIN 40 MG TABLET PO (20:44)
[2023-08-08] MEDS: ARIPiprazole 10 MG TABLET PO (21:05)
[2023-08-08] MEDS: MAGNESIUM OXIDE 400 MG TABLET PO (21:05)
--- NOTE | 2023-08-08 22:27 | PC.NURSE ---
Shift [id number]- Patient denies pain. She is able to make needs known, but cognition seems off (slight cognitive impairment). She is up with walker, gait belt, and assist of 1. Does not produce sputum, no BM. Attempt to wean to RA results in saturations in mid 80s% at rest, continues to be on 0.5L O2 NC.
[2023-08-09] VITALS (11 sets, daily range): BP systolic 123–196; BP diastolic 54–73; PULSE 70–75; RESP 16–20; TEMP 36.4–36.7; O2SAT 85–98
[2023-08-09] MEDS: IPRAT-ALBUT 0.5-2.5 MG/3 ML NEB 1 NEB IH ×4 (00:53→18:55)
[2023-08-09] MEDS: cefTRIAXone 2 GM in 0.9 % SODIUM CHLORIDE Mini-bag 100 ML IVPB (00:54)
[2023-08-09 06:17] LABS: Hematocrit 36.5 % (33.0-51.0); Mean Corpuscular HGB Conc 33 gm/dL (32-36); Mean Corpuscular Hemoglobin 32 pg (26-34); Mean Corpuscular Volume 97 fL (80-100); Platelet Count* 188 K/uL (140-440); Red Blood Count 3.75 m/uL (4.00-5.20); White Blood Count* 6.45 K/uL (4.50-11.00)
[2023-08-09 06:28] LABS: Slide Review Reflex No
[2023-08-09] MEDS: LEVOTHYROXINE 75 MCG TABLET PO (06:30)
[2023-08-09 06:32] LABS: Chloride* 110 mmol/L (96-114); Sodium* 143 mmol/L (135-149)
[2023-08-09 06:33] LABS: Potassium* 4.1 mmol/L (3.6-5.1)
[2023-08-09 06:35] LABS: Anion Gap 8 mEq/L (7-15); Carbon Dioxide* 25 mmol/L (20-32); Creatinine* 1.2 mg/dL (0.5-1.5); Est. Creatinine Clearance* 32.53; Estimated Glomerular Filt Rate 48 ml/min
[2023-08-09 06:36] LABS: Blood Urea Nitrogen* 33 mg/dL (7-30); Calcium* 8.8 mg/dL (8.4-10.6); Glucose* 185 mg/dL (60-115); Magnesium* 2.3 mg/dL (1.5-2.6)
--- NOTE | 2023-08-09 06:41 | PC.NURSE ---
End of shift [id number]: A&O w/ some forgetfulness. Pleasant and cooperative. Pt hypertensive after ambulation. Placed on 0.5L O2 while sleeping to maintain sats between 88-94%. Pt currently on RA while awake. Denying pain. denies SOB. Needing to obtain stool and sputum sample. Up to bathroom w/ a1 walker and gait belt. Using call light appropriately.
[2023-08-09] MEDS: predniSONE 20 MG TABLET 40 MG PO (07:56)
[2023-08-09] MEDS: ASPIRIN 81 MG TABLET EC 162 MG PO (09:26)
[2023-08-09] MEDS: FERROUS SULFATE 325 MG TABLET PO (09:26)
[2023-08-09] MEDS: GLIMEPIRIDE 1 MG TABLET 0.5 MG PO (09:26)
[2023-08-09] MEDS: 0.9 % SODIUM CHLORIDE 1000 ml 1,000 ML 75 ML IV (09:26)
[2023-08-09] MEDS: dilTIAZem 120 MG CAP.ER.24H PO (09:27)
[2023-08-09] MEDS: guaiFENesin 600 MG TAB.ER.12H PO ×2 (09:32→21:18)
[2023-08-09] MEDS: carvediloL 6.25 MG TABLET 12.5 MG PO ×2 (09:32→21:17)
[2023-08-09] MEDS: DULOXETINE 30 MG CAPSULE DR 60 MG PO ×2 (09:33→21:24)
[2023-08-09] MEDS: DOXYCYCLINE HYCLATE 100 MG in 0.9 % SODIUM CHLORIDE Mini-bag 100 ML IVPB (09:33)
--- NOTE | 2023-08-09 10:18 | RESP.RT ---
Patient sitting up in chair, appears comfortable. On Room Air, SaO2 96%, breathing regular/easy. Rate 20/minute. BBS fine crackles diminished. Patient using Aerobika X10, good effort, good fair cough post, nonproductive, post SaO2 increased to 100%. Patient receiving DuoNebs.
--- NOTE | 2023-08-09 11:42 | PM.IMPN1 ---
Progress Note: A&P Assessment and plan (1) Pneumonia: Problem details: -given the down escalation of procalcitonin. Oral doxy for a total of 5 days of antibiotics. -Mucinex b.i.d. -DuoNebs q.i.d., albuterol nebs q.4 hours p.r.n., aerobic, incentive spirometry -appreciate RT helping his this case -MRSA negative. Flu, RSV, COVID negative. Strep pneumo and Legionella negative Status: Acute (2) Hypoxia: Problem details: -improved. On room air this afternoon 95% Status: Acute (3) Solid nodule of lung greater than 8 mm in diameter: Problem details: -1.7cm partially calcified spiculated nodule in RLL -followed in outpatient setting Status: Acute (4) Diabetes mellitus with macroalbuminuric diabetic nephropathy: Problem details: -A1c 7.6 in May -continue home medications, holding /Farxiga -diabetic diet, glucose checks a.c. at bedtime, low insulin sliding scale Status: Acute (5) Major depressive disorder, recurrent episode with anxious distress: Problem details: Stable. Status: Acute (6) Diabetes mellitus: Problem details: HgbA1c 7.6% (05/2023) Status: Acute (7) Multiple sclerosis: Problem details: -at baseline, with declining function reported by patient -continue home medication, avoiding narcotics given acute hypoxia Status: Acute Subjective Date Seen: 08/09/23 Interval history: Daily Progress Note - Hospital Medicine #: 3 CC: weak, bilateral infiltrates, hx of MS OVERNIGHT UPDATES FROM STAFF & MED, LAB, IMAGING UPDATES Much CBC is stable. INR was 1.67 on arrival Blood gases are normal Kidney function is back to below her original baseline of 1.5. Today's 1.2 Procalcitonin has deescalated from 0.12 done at 0.08. BNP 494. Negative troponin on admission negative RSV, COVID, flu, strep pneumo Legionella are all negative. Chest x-ray this afternoon shows coarse opacities in both lungs are unchanged from prior exams. Right lower lobe pulmonary nodule is partially visualized heart size normal no pleural effusion pneumothorax. No essential change. Despite clinical improvement. -CT oral it also shows diffuse ground-glass opacification of lungs, likely pneumonia improved overnight. Patient feels much stronger. Less shaky. Feels her breathing is much easier. Objective: pleasant. Vitals: see above Lungs: Clear. Cardiac: S1S2. Disposition/Potential discharge - Likely to return to previous living situation. Today I spent 50minutes seeing the patient, reviewing Expanse and EPIC notes/diagnostics, discussing the care plan with our care time that includes social work, PT/OT, pharmacy, RT, nursing home and documenting my impressions and plan in the medical record. Exam Const: Vital Signs, click to edit/add: Vital Signs - 24 hr 08/08/23 16:00 08/08/23 16:03 08/08/23 18:09 Temperature 97.5 F L Pulse Rate [Bilate ral Radial] 76 Pulse Rate [Pulse Oximeter] Respiratory Rate 18 Blood Pressure [Ri ght Arm] 177/55 H Pulse Oximetry 96 96 94 Oxygen Delivery Me thod Nasal Cannula Nasal Cannula Oxygen Flow Rate 1 1 08/08/23 19:00 08/08/23 23:05 08/08/23 23:14 Temperature 97.7 F 97.8 F Pulse Rate [Bilate ral Radial] 76 Pulse Rate [Pulse Oximeter] 67 Respiratory Rate 22 20 Blood Pressure [Ri ght Arm] 174/56 H 163/60 H Pulse Oximetry 90 92 92 Oxygen Delivery Me thod Room Air Nasal Cannula Oxygen Flow Rate 0.5 08/09/23 03:00 08/09/23 03:15 08/09/23 03:16 Temperature 97.6 F Pulse Rate [Bilate ral Radial] Pulse Rate [Pulse Oximeter] 75 Respiratory Rate 16 Blood Pressure [Ri ght Arm] 196/68 H Pulse Oximetry 94 85 L 91 Oxygen Delivery Me thod Room Air Room Air Nasal Cannula Oxygen Flow Rate 0.5 08/09/23 06:00 08/09/23 06:01 08/09/23 07:00 Temperature Pulse Rate [Bilate ral Radial] Pulse Rate [Pulse Oximeter] Respiratory Rate Blood Pressure [Ri ght Arm] Pulse Oximetry 96 91 96 Oxygen Delivery Me thod Nasal Cannula Room Air Oxygen Flow Rate 0.5 08/09/23 07:00 08/09/23 07:00 08/09/23 07:00 Temperature 97.6 F Pulse Rate [Bilate ral Radial] Pulse Rate [Pulse Oximeter] 75 75 Respiratory Rate 16 16 16 Blood Pressure [Ri ght Arm] 190/59 H Pulse Oximetry 96 96 Oxygen Delivery Me thod Room Air Room Air Oxygen Flow Rate 08/09/23 10:16 Temperature Pulse Rate [Bilate ral Radial] Pulse Rate [Pulse Oximeter] Respiratory Rate 20 Blood Pressure [Ri ght Arm] Pulse Oximetry 98 Oxygen Delivery Me thod Room Air Oxygen Flow Rate Labs Labs: Laboratory Results - last 24 hr 08/08/23 08/09/23 15:38 05:45 WBC 6.45 RBC 3.75 L Hgb 12.0 Hct 36.5 MCV 97 MCH 32 MCHC 33 Plt Count 188 Sodium 143 Potassium 4.1 Chloride 110 Carbon Dioxide 25 Anion Gap 8 BUN 33 H Creatinine 1.2 Estimated Creat Clear 32.53 Estimated GFR 48 Glucose 185 H Calcium 8.8 Magnesium 2.3 Urine L. pneumophilia Ag L. pneumo Negative Urine Strep pneumoniae Ag S. pneumo Negative
[2023-08-09 12:55] LABS: Procalcitonin* 0.12 ng/mL (<0.50)
[2023-08-09 12:56] LABS: Procalcitonin* 0.08 ng/mL (<0.50)
--- NOTE | 2023-08-09 13:02 | CRLHL7_ITS ---
For Patients: As a result of the Cures Act, medical imaging exams and procedure reports are released immediately into your electronic medical record. You may view this report before your referring provider. If you have questions, please contact your health care provider. INDICATION: Follow up pneumonia. TECHNIQUE: PA and lateral chest. COMPARISON: 08/07/[address] and chest x-ray. FINDINGS: Coarse opacities in both lungs are unchanged from prior exams. Right lower lobe pulmonary nodule is partially visualized. Heart size normal. No pleural effusion or pneumothorax. No change. Dictated by Juan Harkins MD @ 08/09/2023 3:13:31 PM (Electronically Signed)
--- NOTE | 2023-08-09 18:10 | PC.NURSE ---
End of Shift: Pt AO, pleasant and cooperative throughout shift. Denied pain. Ambulating well with walker, GB, SBA. IV fluids d/c'd per MD order. Right AC IV d/c'd d/t leaking. Left IV remained patent. D/C plan for tomorrow pending no complications over the night. Pt remained on RA with O2 sats ranging between 93-96%. Blood sugars ranging from 158-293. Insulin administered per protocol. Continent throughout shift, no BM.
[2023-08-09] MEDS: ARIPiprazole 10 MG TABLET PO (21:16)
[2023-08-09] MEDS: ENOXAPARIN 40 MG/0.4 ML INJ SUBCUT (21:16)
[2023-08-09] MEDS: DOXYCYCLINE HYCLATE 100 MG PO (21:17)
[2023-08-09] MEDS: GABAPENTIN 600 MG TABLET PO (21:18)
[2023-08-09] MEDS: SIMVASTATIN 40 MG TABLET PO (21:18)
[2023-08-09] MEDS: MAGNESIUM OXIDE 400 MG TABLET PO (21:18)
[2023-08-09] MEDS: SODIUM CHLORIDE 0.9 % (FLUSH) 10 ML SYRINGE 5 ML IVF (21:19)
[2023-08-10] MEDS: IPRAT-ALBUT 0.5-2.5 MG/3 ML NEB 1 NEB IH ×2 (00:57→06:25)
[2023-08-10 03:29] VITALS: BP 169/64; PULSE 70; RESP 18; TEMP 36.9; O2SAT 92
[2023-08-10] MEDS: LEVOTHYROXINE 75 MCG TABLET PO (06:26)
--- NOTE | 2023-08-10 06:47 | PC.NURSE ---
End of shift [id number]: A&O. Pleasant and cooperative. VSS. Pt remained on room air throughout shift and maintaining o2 sats well. Denying pain. Needing to obtain stool and sputum sample. Up to bathroom w/ a1 and walker and gait belt. Using call light appropriately. ?
[2023-08-10 06:59] LABS: Chloride* 110 mmol/L (96-114); Potassium* 3.8 mmol/L (3.6-5.1); Sodium* 142 mmol/L (135-149)
[2023-08-10 07:00] VITALS: BP 169/57; PULSE 72; RESP 18; TEMP 37; O2SAT 93
[2023-08-10 07:02] LABS: Anion Gap 7 mEq/L (7-15); Carbon Dioxide* 25 mmol/L (20-32); Creatinine* 1.3 mg/dL (0.5-1.5); Est. Creatinine Clearance* 30.03; Estimated Glomerular Filt Rate 43 ml/min
[2023-08-10 07:03] LABS: Blood Urea Nitrogen* 40 mg/dL (7-30); Calcium* 8.8 mg/dL (8.4-10.6); Glucose* 132 mg/dL (60-115)
[2023-08-10 08:15] VITALS: RESP 20; O2SAT 95
[2023-08-10] MEDS: guaiFENesin 600 MG TAB.ER.12H PO (09:18)
[2023-08-10] MEDS: carvediloL 6.25 MG TABLET 12.5 MG PO (09:18)
[2023-08-10] MEDS: GLIMEPIRIDE 1 MG TABLET 0.5 MG PO (09:18)
[2023-08-10] MEDS: predniSONE 20 MG TABLET 40 MG PO (09:19)
[2023-08-10] MEDS: FERROUS SULFATE 325 MG TABLET PO (09:19)
[2023-08-10] MEDS: DOXYCYCLINE HYCLATE 100 MG PO (09:19)
[2023-08-10] MEDS: DULOXETINE 30 MG CAPSULE DR 60 MG PO (09:19)
[2023-08-10] MEDS: ASPIRIN 81 MG TABLET EC 162 MG PO (09:19)
[2023-08-10] MEDS: dilTIAZem 120 MG CAP.ER.24H PO (09:19)
[2023-08-10] MEDS: SODIUM CHLORIDE 0.9 % (FLUSH) 10 ML SYRINGE 5 ML IVF (09:20)
--- NOTE | 2023-08-10 09:45 | P.DS_ITS ---
DS: Providers Provider Date Seen: 08/10/23 Date of admission: 08/08/23 01:10 Primary care physician: Santa Rowan, Admitting Clinician: Barrett Bautista MD Consults: 08/08/23 02:41 Consult to Director Of Acquisition Marketing [CONS] Routine Comment: Reason for Consult:: Social Service Consult 08/08/23 12:46 Consult to Respiratory Therapy [CONS] Routine Comment: Reason(s) for RT Consult:: Consult Comment: Acute pneumonia, history of COPD, previously using oxygen at night, noncompliant with sleep study follow up, nebs 08/08/23 13:13 Consult to Physical Therapy [CONS] Routine Comment: Reason(s) for PT Consult:: Evaluate and Treat Any Restrictions?:: No Restrictions Attending Physician on discharge: Barrett Bautista MD DS: Diagnosis Discharge Diagnosis (1) Pneumonia: Status: Acute Problem details: -down escalation of procalcitonin and clinical improvement: ceftriaxone/azithro x 1 day, ceftriaxone and doxy (both iv) x 1 day, now will do 5 days of oral doxy -Mucinex b.i.d. -DuoNebs q.i.d., albuterol nebs q.4 hours p.r.n., aerobic, incentive spirometry -appreciate RT helping his this case -MRSA negative. Flu, RSV, COVID negative. Strep pneumo and Legionella negative (2) Hypoxia: Status: Acute Problem details: -improved. On room air. (3) Solid nodule of lung greater than 8 mm in diameter: Status: Deleted Problem details: -known prior to admission. scan done in this hospital could not be compared to previous. rads documented here Indeterminate 2.0 centimeter medial right lobe pulmonary nodule. this scan and previous should be compared and future monitoring/interventions discussed with patient. (4) Diabetes mellitus with macroalbuminuric diabetic nephropathy: Status: Acute Problem details: resume previous (5) Major depressive disorder, recurrent episode with anxious distress: Status: Acute Problem details: Stable. (6) Multiple sclerosis: Status: Acute Problem details: -at baseline, with declining function reported by patient -continue home medication, avoiding narcotics given acute hypoxia DS: Summary Hospital Course Hospital Course: FINAL DIAGNOSIS/FOLLOW UP ISSUES: 1. Pneumonia. Patient is much improved. Finishing on oral doxycycline regimen. 2. Known pulmonary nodule. Mrs. Velázquez and outpatient team should compare films (they were not available) to determine future imaging scheduled/interventions. BRIEF HOSPITAL COURSE: Patient was admitted for 3 days. Synopsis of acute inpatient issues are outlined above. Chronic medical conditions with notable findings outlined above. DISCHARGE MEDICATIONS: See Reconciled list - SIGNIFICANT CHANGES: Previous home meds were continued at discharge She will be going home on 4-1/2 days of oral doxycycline and 2 days of prednisone. Specific instructions to the patient and follow-up are outlined below. REVIEW OF SYSTEMS No new chest pain or dyspnea Pain controlled No voiding difficulties Tolerating diet challenge PHYSICAL EXAM: CONSTITUTIONAL: Alert. Awake. Back to baseline. VITAL SIGNS: see record. HEENT: Normocephalic, atraumatic. PERRL, EOMI, conjunctivae pink, no scleral icterus. Ears and nose externally normal. Pharynx normal. NECK: No JVD. No carotid bruit, no thyromegaly, no adenopathy. CHEST: Clear to auscultation bilaterally. HEART: S1 and S2 normal. Edema ABDOMEN: Soft, nontender. Normal bowel sounds. MUSCULOSKELETAL: No gross joint deformity or swelling. NEURO: Cranial nerves intact. Grossly intact. No asymmetric findings. SKIN: No rashes, petechiae, concerning changes PSYCHIATRIC: Mood euthymic. DISPOSITION: Back to her [facility], transported by granddaughter Time spent on discharge 37 minutes. Time Spent with Patient Time attestation: Total time spent providing and/or coordinating discharge services: Exam Const: Vital Signs, click to edit/add: Vital Signs - 24 hr 08/09/23 10:16 08/09/23 11:00 08/09/23 15:00 Temperature 97.6 F Pulse Rate [Pulse Oximeter] 71 Respiratory Rate 20 16 Blood Pressure [Ri ght Arm] 166/60 H Pulse Oximetry 98 95 93 Oxygen Delivery Me thod Room Air Room Air 08/09/23 15:00 08/09/23 15:00 08/09/23 15:00 Temperature 97.8 F Pulse Rate [Pulse Oximeter] 70 70 Respiratory Rate 16 16 16 Blood Pressure [Ri ght Arm] 123/73 Pulse Oximetry 93 95 Oxygen Delivery Me thod Room Air Room Air 08/09/23 19:32 08/09/23 23:00 08/09/23 23:00 Temperature 97.8 F 98.1 F Pulse Rate [Pulse Oximeter] 74 73 Respiratory Rate 18 16 16 Blood Pressure [Ri ght Arm] 145/58 H 137/54 L Pulse Oximetry 97 93 93 Oxygen Delivery Me thod Room Air Room Air Room Air 08/09/23 23:00 08/10/23 03:29 Temperature 98.4 F Pulse Rate [Pulse Oximeter] 70 Respiratory Rate 18 Blood Pressure [Ri ght Arm] 169/64 H Pulse Oximetry 93 92 Oxygen Delivery Me thod Room Air DS: Data Data Completed and Pending Labs on day of discharge: Labs from last 24 hours 08/10/23 08/09/23 08/09/23 05:40 11:43 05:45 Sodium 142 Potassium 3.8 Chloride 110 Carbon Dioxide 25 Anion Gap 7 BUN 40 H Creatinine 1.3 Estimated Creat Clear 30.03 Estimated GFR 43 Glucose 132 H Calcium 8.8 Procalcitonin 0.08 Lab Acknowledgement Test Added 08/07/23 19:35 Sodium Potassium Chloride Carbon Dioxide Anion Gap BUN Creatinine Estimated Creat Clear Estimated GFR Glucose Calcium Procalcitonin 0.12 Lab Acknowledgement Preliminary micro results at discharge 08/07/23 23:59 Blood Culture - Preliminary Blood NO GROWTH AFTER 48 HOURS 08/07/23 23:43 Blood Culture - Preliminary Blood NO GROWTH AFTER 48 HOURS Discharge Plan Discharge Disposition: Home w/ Parent or Adult Date of Admission: 08/08/23 01:10 Attending Provider on Discharge: Theresa Baird Primary Care Provider: Santa Rowan Anticipated Discharge Date/Time: 08/10/23 09:29 Discharge Medications: New prednisone 20 mg Tablet 40 mg PO DAILYWM Qty: 4 0RF doxycycline hyclate 100 mg Tablet 100 mg PO BID Qty: 9 0RF Continued calcium carbonate [Calcium 600] 600 mg calcium (1,500 mg) tablet 600 mg PO BID omega [id number] oil 1,000 mg (120 mg-180 mg) capsule 1 cap PO BID Patient Comments: TAKE 1 CAPSULE BY MOUTH TWICE DAILY 1200mg strength ferrous sulfate 325 mg (65 mg iron) tablet 325 mg PO DAILY [id number] 1 tab PO DAILY docusate sodium [Colace] 100 mg capsule 100 mg PO .MO,WE,FR@09 Rx Instructions: take M-W- in the morning cholecalciferol (vitamin D3) 50 mcg (2,000 unit) capsule 50 mcg PO DAILY magnesium 250 mg tablet 250 mg PO HS diclofenac sodium 1 % gel 2 g topical QID Qty: 100 0RF Rx Instructions: apply to single elbow, wrist or hand; for hand includes palm/fingers/back of hand ascorbic acid (vitamin C) [Vitamin C] 1,000 mg tablet 1,000 mg PO DAILY DHA 200 mg capsule 200 mg PO DAILY Farxiga 5 mg tablet 5 mg PO QAM gabapentin 600 mg tablet 600 mg PO QHS Qty: 90 1RF diltiazem HCl 60 mg capsule,extended release 12 hr 60 mg PO BID Qty: 30 1RF gabapentin 6%,Ketamine 8%,Lidocaine 2.5% liposomal cream cream 1 ea topical QID PRN Patient Comments: faxed written order to [facility] [phone] Rx Instructions: apply to affected area up to 4 times daily as needed. 60gm, 1 RF aspirin [Adult Low Dose Aspirin] 81 mg tablet,delayed release (DR/EC) 162 mg PO QDAY sennosides-docusate sodium [Stool Softener-Laxative] 8.6-50 mg Tablet 1 tab PO BID PRNQty: 30 0RF lidocaine [Aspercreme (lidocaine)] 4 % adhesive patch,medicated 1 patch topical DAILY PRN (Reason: pain) Rx Instructions: may leave on for up to 12 hrs glimepiride 1 mg tablet 0.5 mg PO DAILY ipratropium bromide 21 mcg (0.03 %) spray,non-aerosol 2 spray intranasal TID PRN (Reason: for allergies) aripiprazole 10 mg tablet 10 mg PO HS duloxetine 60 mg capsule,delayed release(DR/EC) 60 mg PO BID Qty: 60 4RF simvastatin 40 mg tablet 40 mg PO HS Qty: 90 3RF carvedilol 12.5 mg tablet 12.5 mg PO BID Qty: 180 0RF levothyroxine 75 mcg tablet 75 mcg PO DAILY Qty: 90 0RF baclofen 10 mg tablet 20 mg PO BID Qty: 120 1RF Discharge Orders: Discharge Order (Routine); Ordered 08/10/23 Ordered By: Theresa Baird Additional Instructions: 1. your chest CT completed here was not compared to your previous scans. It appears by description about the same but I recommend you touch base with your PCP and ask that your scans be compared and for the plan to be adjusted for the next scan, 3 months? 6 months? 2. finish your antibiotic and prednisone as described Activity Level: Activity as Tolerated Discharge Diet: Regular Forms: [facility] Info Instructions
--- NOTE | 2023-08-20 16:53 | ED.GENADULT ---
HPI - General Adult General Chief complaint: Diarrhea Stated complaint: weakness Time Seen by Provider: 08/07/23 19:45 History of Present Illness HPI narrative: This note is an addendum to my note from 08/07/2023. I inadvertently omitted the patient's physical exam from my previous ER note. Related Data Home Medications Medication Instructions Recorded Confirmed aspirin 81 mg tablet,delayed 162 mg PO QDAY 06/10/22 08/08/23 release (Adult Low Dose Aspirin) calcium carbonate 600 mg calcium 600 mg PO BID 12/16/22 08/08/23 (1,500 mg) tablet (Calcium) cholecalciferol (vitamin D3) 50 50 mcg PO DAILY 12/16/22 08/08/23 mcg (2,000 unit) capsule docusate sodium 100 mg capsule 100 mg PO .MOWE,FR@12/16/22 08/08/23 (Colace) ferrous sulfate 325 mg (65 mg 325 mg PO DAILY 12/16/22 08/08/23 iron) tablet magnesium 250 mg tablet 250 mg PO HS 12/16/22 08/08/23 omega [id number] oil 1,000 mg 1 cap PO BID 12/16/22 08/08/23 (120 mg-180 mg) capsule [id number] 1 tab PO DAILY 12/16/22 08/08/23 ascorbic acid (vitamin C) 1,000 mg 1,000 mg PO DAILY 05/21/23 08/08/23 tablet (Vitamin C) docosahexaenoic acid 200 mg 200 mg PO DAILY 05/21/23 08/08/23 capsule ( DHA) dapagliflozin propanediol 5 mg 5 mg PO QAM 07/01/23 08/08/23 tablet (Farxiga) gabapentin 6%,Ketamine 1 ea topical QID PRN 07/30/23 08/08/23 8%,Lidocaine 2.5% liposomal cream aripiprazole 10 mg tablet 10 mg PO HS 08/08/23 08/08/23 glimepiride 1 mg tablet 0.5 mg PO DAILY 08/08/23 08/08/23 ipratropium bromide 21 mcg (0.03 2 spray intranasal TID PRN for 08/08/23 08/08/23 %) nasal spray allergies lidocaine 4 % topical patch 1 patch topical DAILY PRN pain 08/08/23 08/08/23 (Aspercreme (lidocaine)) Previous Rx's Medication Instructions Recorded sennosides 8.6 mg-docusate sodium 1 tab PO BID PRN #30 tabs 06/04/22 50 mg tablet (Stool Softener-Laxative) diclofenac sodium 1 % topical gel 2 g topical QID #100 grams 03/26/23 duloxetine 60 mg capsule,delayed 60 mg PO BID #60 caps 04/28/23 release simvastatin 40 mg tablet 40 mg PO HS #90 tabs 05/26/23 carvedilol 12.5 mg tablet 12.5 mg PO BID #180 tabs 07/17/23 levothyroxine 75 mcg tablet 75 mcg PO DAILY #90 tabs 07/24/23 diltiazem HCl 60 mg 60 mg PO BID #30 caps 07/30/23 capsule,extended release 12 hr gabapentin 600 mg tablet 600 mg PO QHS #90 tabs 07/30/23 baclofen 10 mg tablet 20 mg (2 x 10 mg) PO BID #120 tabs 07/31/23 doxycycline hyclate 100 mg tablet 100 mg PO BID #9 tabs 08/10/23 prednisone 20 mg tablet 40 mg (2 x 20 mg) PO DAILYWM #4 08/10/23 tabs Allergies Allergy/AdvReac Type Severity Reaction Status Date / Time ketorolac [From Toradol] Allergy Intermediate Agitated Verified 08/07/23 23:04 codeine Allergy Verified 08/07/23 23:04 [facility] Medical History (Updated 08/18/23 @ 00:01 by Background Gian) Pulmonary nodule ?R91.1 - Solitary pulmonary nodule (ICD-10) Atrophic rhinitis ?J31.0 - Chronic rhinitis (ICD-10) Anxiety ?F41.9 - Anxiety disorder, unspecified (ICD-10) Elevated cholesterol ?E78.00 - Pure hypercholesterolemia, unspecified (ICD-10) Arthritis ?M19.90 - Unspecified osteoarthritis, unspecified site (ICD-10) Sleep apnea ?G47.30 - Sleep apnea, unspecified (ICD-10) History of benzodiazepine use ?Z87.898 - Personal history of other specified conditions (ICD-10) Hypoxia ?R09.02 - Hypoxemia (ICD-10) History of fracture of left hip ?Z87.81 - Personal history of (healed) traumatic fracture (ICD-10) Fall ?W19.XXXA - Unspecified fall, initial encounter (ICD-10) Acute electrocardiogram changes ?R94.31 - Abnormal electrocardiogram [ECG] [EKG] (ICD-10) Closed fracture of left hip requiring operative repair ?S72.002A - Fracture of unspecified part of neck of left femur, initial encounter for closed fracture (ICD-10) MAKAYLA on CPAP ?G47.33 - Obstructive sleep apnea (adult) (pediatric) (ICD-10) ?Z99.89 - Dependence on other enabling machines and devices (ICD-10) Osteoporosis ?M81.0 - Age-related osteoporosis without current pathological fracture (ICD-10) Valvular heart disease ?I38 - Endocarditis, valve unspecified (ICD-10) Myocardial infarction ?I21.9 - Acute myocardial infarction, unspecified (ICD-10) Mass of right lung ?R91.8 - Other nonspecific abnormal finding of lung field (ICD-10) Hypothyroid ?E03.9 - Hypothyroidism, unspecified (ICD-10) HTN (hypertension) ?I10 - Essential (primary) hypertension (ICD-10) DECLAN (generalized anxiety disorder) ?F41.1 - Generalized anxiety disorder (ICD-10) Dyslipidemia ?E78.5 - Hyperlipidemia, unspecified (ICD-10) Diabetes mellitus ?E11.9 - Type 2 diabetes mellitus without complications (ICD-10) Acute depression ?F32.A - Depression, unspecified (ICD-10) COPD (chronic obstructive pulmonary disease) ?J44.9 - Chronic obstructive pulmonary disease, unspecified (ICD-10) CAD (coronary artery disease) ?I25.10 - Atherosclerotic heart disease of [place] coronary artery without angina pectoris (ICD-10) Multiple sclerosis ?G35 - Multiple sclerosis (ICD-10) Surgical History Status post-operative repair of closed fracture of left hip (1998) ?Z98.890 - Other specified postprocedural states (ICD-10) ?Z87.81 - Personal history of (healed) traumatic fracture (ICD-10) History of tonsillectomy ?Z90.89 - Acquired absence of other organs (ICD-10) History of percutaneous coronary intervention (04/09/05) ?Z98.61 - Coronary angioplasty status (ICD-10) History of hysterectomy ?Z90.710 - Acquired absence of both cervix and uterus (ICD-10) History of colonoscopy ?Z98.890 - Other specified postprocedural states (ICD-10) History of toe surgery ?Z98.890 - Other specified postprocedural states (ICD-10) History of coronary artery stent placement ?Z95.5 - Presence of coronary angioplasty implant and graft (ICD-10) Family History Father CHF (congestive heart failure) Other Coronary artery disease Diabetes Mental disorder Seizure disorder Social History Narrative: No smoker Does not drink alcohol Does not use illicit drugs What is your current living situation?: I presently have a place to live Problems where you live: no known problems Problems where you live details: n/a In the past 12 months, utilities in danger of being shut off: no In past 12 months, lack of transportation kept you from medical appts, meetings, work, or getting things needed for daily living: yes In the past 12 mos, have been you worried that your food would run out before you had money to buy more?: never true In the past 12 mos, the food you bought just didn't last and you didn't have money to buy more?: never true Highest level of school completed/degree received: some college, no degree Smoking Status: Former smoker Do you use any of these nicotine containing products: None Second hand tobacco smoke exposure: No How often do you have a drink containing alcohol: monthly or less AUDIT-C Alcohol total score: 1 Non-prescribed substance use: denies use Caffeine: Yes (coffee) How often does anyone, including family, friends and others, physically hurt you: never How often does anyone, including family, friends and others, insult or talk down to you: never How often does anyone, including family, friends and others, threaten you with harm: never How often does anyone, including family, friends and others, scream or curse at you: never Little interest or pleasure in doing things: nearly every day Feeling down, depressed, or hopeless: nearly every day service: No Exam Narrative: Exam Narrative: Constitutional: Appears well-developed. Somewhat frail appearing. Alert. Conversant. Non toxic. HENT: Head: Atraumatic. Nose: Nose normal. Mouth/Throat: Oral mucosa is clear and moist. no trismus. Pharynx normal. Eyes: Conjunctivae normal. EOM normal. Pupils equal, round, and reactive to light. No scleral icterus. Neck: Normal range of motion. Neck supple. No tracheal deviation present. No thyromegaly. Cardiovascular: Normal rate, regular rhythm. No gallop. No friction rub. No murmur heard. Symmetric radial artery pulses Pulmonary/Chest: Effort normal. No stridor. No respiratory distress. No wheezes. Questionable right upper lobe rales/ rhonchi . No tenderness. Abdominal: Soft. Bowel sounds normal. No distension. No mass. No tenderness. No rebound. No guarding. Musculoskeletal: RUE: Normal range of motion. No tenderness. No deformity LUE: Normal range of motion. No tenderness. No deformity RLE: Normal range of motion. No edema. No tenderness. No deformity LLE: Normal range of motion. No edema. No tenderness. No deformity Neurological: Alert and oriented to person, place, and time. Normal strength. CN II-VII intact. No sensory deficit. GCS eye subscore is 4. GCS verbal subscore is 5. GCS motor subscore is 6. Normal coordination Skin: Skin is warm and dry. No rash noted. No pallor. Normal capillary refill. Psychiatric: Normal mood. Normal affect. Course Vital Signs Vital signs: Initial Vital Signs Pulse Oximetry 96 08/07/23 19:30 Oxygen Delivery Method Nasal Cannula 08/07/23 19:30 Oxygen Flow Rate 1 08/07/23 19:30 Vital Signs Pulse Oximetry 96 08/07/23 19:30 Oxygen Delivery Method Nasal Cannula 08/07/23 19:30 Oxygen Flow Rate 1 08/07/23 19:30 Temperature 98.6 F 08/10/23 07:00 Pulse Rate 72 08/10/23 07:00 Respiratory Rate 20 08/10/23 08:15 Blood Pressure 169/57 H 08/10/23 07:00 Pulse Oximetry 95 08/10/23 08:15 Oxygen Delivery Method Room Air 08/10/23 08:15 Oxygen Flow Rate 0.5 08/09/23 06:00 Medications Administered Medications: Discontinued Medications Generic Name Dose Route Start Last Admin Trade Name Freq PRN Reason Stop Dose Admin Albuterol/Ipratropium 1 neb 08/08/23 12:50 08/10/23 06:25 Iprat-Albut 0.5-2.5 Mg/3 Ml Neb IH 1 neb Q6H SUSIE Administration Aripiprazole 10 mg 08/08/23 21:00 08/09/23 21:16 Aripiprazole 10 Mg Tablet PO 10 mg HS SUSIE Administration Aspirin 162 mg 08/09/23 09:00 08/10/23 09:19 Aspirin 81 Mg Tablet Ec PO 162 mg DAILY SUSIE Administration Carvedilol 12.5 mg 08/08/23 21:00 08/10/23 09:18 Carvedilol 6.25 Mg Tablet PO 12.5 mg BID SUSIE Administration Diltiazem HCl 120 mg 08/08/23 13:15 08/10/23 09:19 Diltiazem 120 Mg Cap.Er.24h PO 120 mg DAILY SUSIE Administration Doxycycline Hyclate 100 mg 08/09/23 21:00 08/10/23 09:19 Doxycycline Hyclate 100 Mg PO 100 mg BID SUSIE Administration Duloxetine HCl 60 mg 08/08/23 21:00 08/10/23 09:19 [address]etine [address] PO 60 mg BID SUSIE Administration Enoxaparin Sodium 40 mg 08/08/23 21:00 08/09/23 21:16 Enoxaparin 40 Mg/0.4 Ml Inj SUBCUT 40 mg HS SUSIE Administration Ferrous Sulfate 325 mg 08/09/23 09:00 08/10/23 09:19 Ferrous Sulfate 325 Mg Tablet PO 325 mg DAILY SUSIE Administration Gabapentin 600 mg 08/08/23 21:00 08/09/23 21:18 Gabapentin 600 Mg Tablet PO 600 mg HS SUSIE Administration Glimepiride 0.5 mg 08/09/23 09:00 08/10/23 09:18 Glimepiride 1 Mg Tablet PO 0.5 mg DAILY SUSIE Administration Guaifenesin 600 mg 08/08/23 12:50 08/10/23 09:18 Guaifenesin 600 Mg Tab.Er.12h PO 600 mg BID SUSIE Administration Sodium Chloride 1,000 mls @ 1,000 mls/hr 08/07/23 20:00 08/07/23 20:32 0.9 % Sodium Chloride 1000 Ml IV 08/07/23 20:59 Infused .Q1H SUSIE Infusion Sodium Chloride 1,000 mls @ 1,000 mls/hr 08/07/23 20:15 08/07/23 22:34 0.9 % Sodium Chloride 1000 Ml IV 08/07/23 21:14 Infused .Q1H SUSIE Infusion Ceftriaxone Sodium 1 gm/ 100 mls @ 200 mls/hr 08/07/23 23:45 08/08/23 00:41 Sodium Chloride IVPB Infused Q24H SUSIE Infusion Azithromycin 500 mg/ Sodium 255 mls @ 255 mls/hr 08/07/23 23:43 08/08/23 00:44 Chloride IVPB 08/07/23 23:44 255 mls/hr ONCE ONE Administration Ceftriaxone Sodium 2 gm/ 100 mls @ 200 mls/hr 08/09/23 01:00 08/09/23 01:30 Sodium Chloride IVPB Infused Q24H SUSIE Infusion Doxycycline Hyclate 100 mg/ 100 mls @ 100 mls/hr 08/08/23 09:00 08/09/23 12:04 Sodium Chloride IVPB 0 mls/hr Q12H SUSIE Infusion Sodium Chloride 1,000 mls @ 75 mls/hr 08/08/23 04:03 08/09/23 09:26 0.9 % Sodium Chloride 1000 Ml IV 75 mls/hr .[id number] SUSIE Administration Magnesium Sulfate 2 gm in 50 mls @ 25 mls/hr 08/08/23 13:15 08/08/23 15:20 Magnesium Iv IVPB 08/08/23 15:14 25 mls/hr ONCE ONE Administration Insulin Aspart 0 unit 08/08/23 17:30 08/10/23 08:27 Insulin Aspart 100 Unit/Ml (Novolog) SUBCUT Not Given ACHS [facility] Protocol Levothyroxine Sodium 75 mcg 08/09/23 07:00 08/10/23 06:26 Levothyroxine 75 Mcg Tablet PO 75 mcg DAILY@0700 SUSIE Administration Loperamide HCl 4 mg 08/07/23 19:52 08/07/23 22:02 Loperamide Hcl 2 Mg Capsule PO 08/07/23 19:53 Not Given ONCE ONE Magnesium Oxide 400 mg 08/08/23 21:00 08/09/23 21:18 Magnesium Oxide 400 Mg Tablet PO 400 mg HS SUSIE Administration Prednisone 40 mg 08/08/23 12:50 08/10/23 09:19 Prednisone 20 Mg Tablet PO 08/12/23 08:01 40 mg DAILYWM SUSIE Administration Simvastatin 40 mg 08/08/23 21:00 08/09/23 21:18 Simvastatin 40 Mg Tablet PO 40 mg HS SUSIE Administration Sodium Chloride 5 ml 08/08/23 09:00 08/10/23 09:20 Sodium Chloride 0.9 % (Flush) 10 Ml Syringe IVF 5 ml BID SUSIE Administration Medical Decision Making Lab Data Labs: Lab Results 08/07/23 08/07/23 08/07/23 Range/Units 19:35 20:15 20:28 WBC 8.32 (4.50-11.00) K/uL RBC 4.24 (4.00-5.20) m/uL Hgb 13.6 (12.0-16.0) gm/dL Hct 41.3 (33.0-51.0) % MCV 97 (80-100) fL MCH 32 (26-34) pg MCHC 33 (32-36) gm/dL RDW Coeff of [place] 12.7 (11.5-15.5) % Plt Count 221 (140-440) K/uL Neut % (Auto) 77.2 H (42.0-72.0) % Lymph % (Auto) 11.5 L (20-44) % [place] % (Auto) 6.9 (0.0-11.0) % Eos % (Auto) 4.1 (0.0-7.0) % Baso % (Auto) 0.2 (0.0-3.0) % Neut # (Auto) 6.40 (1.7-7.0) K/uL Lymph # (Auto) 1.00 (0.90-2.90) K/uL [place] # (Auto) 0.60 (0.00-0.90) K/UL Eos # (Auto) 0.34 (0.00-0.50) K/uL Baso # (Auto) 0.02 (0.00-0.30) K/uL Abs Immat Gran (auto) 0.01 (0.00-0.30) K/uL Imm/Tot Granulo (auto) 0.1 % D-Dimer Quant (PE/DVT) 1.67 H (0.00-0.50) ug/ml VBG pH 7.359 (7.32-7.43) VBG pCO2 58 H (40-50) mmHG VBG pO2 45.6 (25-47) mmHG VBG HCO3 33 H (21-28) mmol/L Sodium 139 (135-149) mmol/L Potassium 4.4 (3.6-5.1) mmol/L Chloride 99 (96-114) mmol/L Carbon Dioxide 30 (20-32) mmol/L Anion Gap 10 (7-15) mEq/L BUN 43 H (7-30) mg/dL Creatinine 1.7 H (0.5-1.5) mg/dL Estimated Creat Clear 22.96 Estimated GFR 31 ml/min Glucose 176 H (60-115) mg/dL Lactate 1.2 (0.5-1.9) mmol/L Calcium 9.4 (8.4-10.6) mg/dL Troponin I 0.01 (0.01-0.04) ng/mL NT-Pro-B Natriuret Pep 494 pg/mL Procalcitonin 0.12 (<0.50) ng/mL SARS-CoV-2 (PCR) Negative SARS-CoV-2 (Negative) Influenza Type A (PCR) Negative PCR FLU A (Negative) Influenza Type B (PCR) Negative PCR FLU B (Negative) RSV (PCR) Negative PCR RSV (Negative) Lab Acknowledgement Test Added Discharge Plan Discharge Clinical Impression: Acute dehydration, Dizziness, Diarrhea, Pulmonary nodule, Hypoxia, Pneumonia Patient Disposition: Admitted As Observation Activity Level: Activity as Tolerated Discharge Diet: Regular
== END 2023-08-10 11:35 | disposition home or self-care (01) | DRG 140 ==
LOC: ED 23:45 → MEDSURG 08-08 01:01
PROVIDERS: Family Medicine; Physician Assistant; Admitting Provider Family Medicine; Emergency Provider Emergency Medicine; PCP Family Medicine; Visit Provider Family Medicine
DX: J44.0 Chronic obstructive pulmonary disease with (acute) lower respiratory infection (principal); J18.9 Pneumonia, unspecified organism; G35 Multiple sclerosis; N17.9 Acute kidney failure, unspecified; E86.0 Dehydration; R91.1 Solitary pulmonary nodule; R19.7 Diarrhea, unspecified; I12.9 Hypertensive chronic kidney disease with stage 1 through stage 4 chronic kidney disease, or unspecified chronic kidney disease; E11.22 Type 2 diabetes mellitus with diabetic chronic kidney disease; N18.30 Chronic kidney disease, stage 3 unspecified; E11.21 Type 2 diabetes mellitus with diabetic nephropathy; Z79.84 Long term (current) use of oral hypoglycemic drugs; Z79.4 Long term (current) use of insulin; G89.29 Other chronic pain; G47.33 Obstructive sleep apnea (adult) (pediatric); Z99.89 Dependence on other enabling machines and devices; F33.9 Major depressive disorder, recurrent, unspecified; F41.1 Generalized anxiety disorder; I25.10 Atherosclerotic heart disease of native coronary artery without angina pectoris; Z95.5 Presence of coronary angioplasty implant and graft; E03.9 Hypothyroidism, unspecified; K21.9 Gastro-esophageal reflux disease without esophagitis; E78.1 Pure hyperglyceridemia; R09.02 Hypoxemia; R06.89 Other abnormalities of breathing
CPT/HCPCS: 36415; 71046; 71275; 80048; 82803; 82962; 83605; 83735; 83880; 84145; 84484; 85025; 85027; 85379; 87040; 87045; 87046; 87070; 87081; 87427; 87449; 87493; 87631; 87899; 93005; 94640; 94664; 94761; 97161; 99281; 99284; 99285; A9270; J0456; J0696; J1650; J3475; J7030; J7050; J7512; Q9967

== ENCOUNTER 2023-09-23 22:31 | Emergency (ER) | payer BC, SELFPAY ==
[2023-09-23 22:48] VITALS: BP 243/95; PULSE 89; RESP 18; TEMP 37.1; O2SAT 93; BMI 25.6
--- NOTE | 2023-09-23 23:08 | CRLHL7_ITS ---
For Patients: As a result of the Century Cures Act, medical imaging exams and procedure reports are released immediately into your electronic medical record. You may view this report before your referring provider. If you have questions, please contact your health care provider. INDICATION: Headache. TECHNIQUE: Head CT without contrast. COMPARISON: 07/28/2019. FINDINGS: CSF spaces: Proportionate prominence of the ventricles and sulci, reflecting mild to moderate generalized cerebral volume loss. Brain parenchyma: Patchy white matter low attenuation changes, nonspecific but likely reflecting chronic small vessel ischemic disease. No sign of mass, hemorrhage, or midline shift. Atherosclerotic calcifications of the carotid siphons. Skull base and calvarium: Trace mucosal thickening in the right maxillary sinus. Hyperostosis of the right maxillary sinus wall, likely sequela of chronic inflammation. Mastoid air cells are clear. Bilateral lens thinning. No skull fractures. IMPRESSION: No acute intracranial abnormality. Please note that all CT scans at this facility use dose modulation, iterative reconstruction, and/or weight-based dosing when appropriate to reduce radiation dose to as low as reasonably achievable. Dictated by Jovani Bauer MD @ 09/24/2023 12:17:43 AM (Electronically Signed)
[2023-09-23] MEDS: cloNIDine HCL 0.1 MG TABLET PO (23:45)
[2023-09-23 23:48] LABS: Basophils Absolute Auto 0.04 K/uL (0.00-0.30); Basophils Percent Auto 0.5 % (0.0-3.0); Eosinophils Absolute Auto 0.26 K/uL (0.00-0.50); Eosinophils Percent Auto 3.5 % (0.0-7.0); Hematocrit 41.2 % (33.0-51.0); Hemoglobin* 13.6 gm/dL (12.0-16.0); Immature Granulocytes Abs Auto 0.05 K/uL (0.00-0.30); Immature Granulocytes Pct Auto 0.7 %; Lymphocytes Percent Auto 4.8 % (20-44); Mean Corpuscular HGB Conc 33 gm/dL (32-36); Mean Corpuscular Hemoglobin 32 pg (26-34); Mean Corpuscular Volume 97 fL (80-100); Monocytes Percent Auto 10.3 % (0.0-11.0); Neutrophils Percent Auto 80.2 % (42.0-72.0); Platelet Count* 157 K/uL (140-440); RDW Coefficient of Variation % 13.3 % (11.5-15.5); Red Blood Count 4.25 m/uL (4.00-5.20)
[2023-09-23 23:51] LABS: Chloride* 100 mmol/L (96-114); Potassium* 4.3 mmol/L (3.6-5.1); Sodium* 138 mmol/L (135-149)
[2023-09-23 23:52] LABS: Appearance Urine Clear (Clear); Bilirubin Urine Negative (Negative); Blood Urine 1+ (Negative); Color Urine Yellow (Yellow); Glucose Urine Negative (Negative); Ketones Urine Negative (Negative); Leukocyte Esterase Urine Negative (Negative); Nitrite Urine Negative (Negative); Protein Urine 3+ (Negative); Specific Gravity Urine 1.025 (1.000-1.030); Urobilinogen Urine 0.2 (0.2-1.0); pH Urine 7.5 (5.0-8.5)
[2023-09-23 23:55] LABS: Anion Gap 7 mEq/L (7-15); Blood Urea Nitrogen* 35 mg/dL (7-30); Calcium* 9.8 mg/dL (8.4-10.6); Carbon Dioxide* 31 mmol/L (20-32); Glucose* 166 mg/dL (60-115); Slide Review Reflex No
[2023-09-23 23:56] LABS: D Dimer Quantitative* 1.12 ug/ml (0.00-0.50); Ethanol* < 0.01 % (0.01-0.03)
[2023-09-24 00:02] LABS: Amphetamine Screen Urine Negative (Negative); Barbiturate Screen Urine Negative (Negative); Benzodiazepines Screen Urine Negative (Negative); Cannabinoid Screen Urine Negative (Negative); Cocaine Screen Urine Negative (Negative); Methadone Screen Urine Negative (Negative); Methamphetamines Screen Urine Negative (Negative); Opiate Screen Urine Negative (Negative); Oxycodone Screen Urine Negative (Negative); Phencyclidine Screen Urine Negative (Negative); Tricyclic Antidepressant Urine Negative (Negative)
[2023-09-24 00:05] VITALS: BP 210/67; PULSE 81; RESP 18; O2SAT 95
[2023-09-24 00:05] LABS: NT Pro B Type NatriureticPept* 932 pg/mL
[2023-09-24 00:14] LABS: PCR FLU A Negative PCR FLU A (Negative); PCR FLU B Negative PCR FLU B (Negative); PCR RSV Negative PCR RSV (Negative)
[2023-09-24 00:17] LABS: Bacteria Urine Few; Squamous Epithelial Cell Urine Few (None-Few); WBC Urine 0-2 (0-5)
[2023-09-24 00:19] LABS: Creatinine* 1.3 mg/dL (0.5-1.5); Est. Creatinine Clearance* 29.57; Estimated Glomerular Filt Rate 43 ml/min
[2023-09-24 00:26] LABS: SARS PCR* Negative SARS-CoV-2 (Negative)
[2023-09-24] MEDS: AMLODIPINE 5 MG TABLET PO (00:43)
--- NOTE | 2023-09-24 00:55 | ED.GENADULT ---
HPI - General Adult General Date Seen: 09/24/23 Chief complaint: Hypertension Stated complaint: ill Time Seen by Provider: 09/23/23 23:12 Source: patient and EMS Mode of arrival: EMS History of Present Illness HPI narrative: Patient is a 73-year-old female presents by EMS for evaluation of a headache, dizziness, they took her blood pressure tonight at the detention, found to be 200/100. She denies any chest pain associated with this tells me she took her medications normally. He has had no nausea vomiting she does not have diplopia. She said overall that she feels weak. No history of falls or injury, I do note in her medical chart, that she was recently in the clinic at the end of August, her blood pressure was 215 systolic. Related Data Home Medications Medication Instructions Recorded Confirmed aspirin 81 mg tablet,delayed 162 mg PO QDAY 06/10/22 08/27/23 release (Adult Low Dose Aspirin) calcium carbonate 600 mg calcium 600 mg PO BID 12/16/22 08/27/23 (1,500 mg) tablet (Calcium) cholecalciferol (vitamin D3) 50 50 mcg PO DAILY 12/16/22 08/27/23 mcg (2,000 unit) capsule docusate sodium 100 mg capsule 100 mg PO .MO,WE,FR@12/16/22 08/27/23 (Colace) ferrous sulfate 325 mg (65 mg 325 mg PO DAILY 12/16/22 08/27/23 iron) tablet magnesium 250 mg tablet 250 mg PO HS 12/16/22 08/27/23 omega 7-wxt-oet-fish oil 1,000 mg 1 cap PO BID 12/16/22 08/27/23 (120 mg-180 mg) capsule [id number] 1 tab PO DAILY 12/16/22 08/27/23 ascorbic acid (vitamin C) 1,000 mg 1,000 mg PO DAILY 05/21/23 08/27/23 tablet (Vitamin C) aripiprazole 10 mg tablet 10 mg PO HS 08/08/23 08/27/23 glimepiride 1 mg tablet 0.5 mg PO DAILY 08/08/23 08/27/23 amlodipine 5 mg tablet 5 mg PO QDAY 09/22/23 Previous Rx's Medication Instructions Recorded sennosides 8.6 mg-docusate sodium 1 tab PO BID PRN #30 tabs 06/04/22 50 mg tablet (Stool Softener-Laxative) simvastatin 40 mg tablet 40 mg PO HS #90 tabs 05/26/23 carvedilol 12.5 mg tablet 12.5 mg PO BID #180 tabs 07/17/23 levothyroxine 75 mcg tablet 75 mcg PO DAILY #90 tabs 07/24/23 gabapentin 600 mg tablet 600 mg PO QHS #90 tabs 07/30/23 blood sugar diagnostic (Accu-Chek #100 ea 08/27/23 Guide test strips) diltiazem HCl 90 mg 90 mg PO BID #60 caps 08/27/23 capsule,extended release 12 hr ipratropium bromide 21 mcg (0.03 2 spray intranasal TID PRN for 08/27/23 %) nasal spray allergies #30 mL lancets (Accu-Chek Softclix #100 ea 08/27/23 Lancets) baclofen 10 mg tablet 20 mg (2 x 10 mg) PO BID #360 tabs 08/28/23 duloxetine 60 mg capsule,delayed 60 mg PO BID #180 caps 08/28/23 release Allergies Allergy/AdvReac Type Severity Reaction Status Date / Time ketorolac [From Toradol] Allergy Intermediate Agitated Verified 08/27/23 10:50 codeine Allergy Verified 08/27/23 10:50 Review of Systems Status of ROS: Reports: 10 or more systems reviewed and unremarkable except as noted in History and below [facility] Medical History Pulmonary nodule ?R91.1 - Solitary pulmonary nodule (ICD-10) Atrophic rhinitis ?J31.0 - Chronic rhinitis (ICD-10) Anxiety ?F41.9 - Anxiety disorder, unspecified (ICD-10) Elevated cholesterol ?E78.00 - Pure hypercholesterolemia, unspecified (ICD-10) Arthritis ?M19.90 - Unspecified osteoarthritis, unspecified site (ICD-10) Sleep apnea ?G47.30 - Sleep apnea, unspecified (ICD-10) History of benzodiazepine use ?Z87.898 - Personal history of other specified conditions (ICD-10) Hypoxia ?R09.02 - Hypoxemia (ICD-10) History of fracture of left hip ?Z87.81 - Personal history of (healed) traumatic fracture (ICD-10) Fall ?W19.XXXA - Unspecified fall, initial encounter (ICD-10) Acute electrocardiogram changes ?R94.31 - Abnormal electrocardiogram [ECG] [EKG] (ICD-10) Closed fracture of left hip requiring operative repair ?S72.002A - Fracture of unspecified part of neck of left femur, initial encounter for closed fracture (ICD-10) MAKAYLA on CPAP ?G47.33 - Obstructive sleep apnea (adult) (pediatric) (ICD-10) ?Z99.89 - Dependence on other enabling machines and devices (ICD-10) Osteoporosis ?M81.0 - Age-related osteoporosis without current pathological fracture (ICD-10) Valvular heart disease ?I38 - Endocarditis, valve unspecified (ICD-10) Myocardial infarction ?I21.9 - Acute myocardial infarction, unspecified (ICD-10) Mass of right lung ?R91.8 - Other nonspecific abnormal finding of lung field (ICD-10) Hypothyroid ?E03.9 - Hypothyroidism, unspecified (ICD-10) HTN (hypertension) ?I10 - Essential (primary) hypertension (ICD-10) DECLAN (generalized anxiety disorder) ?F41.1 - Generalized anxiety disorder (ICD-10) Dyslipidemia ?E78.5 - Hyperlipidemia, unspecified (ICD-10) Diabetes mellitus ?E11.9 - Type 2 diabetes mellitus without complications (ICD-10) Acute depression ?F32.A - Depression, unspecified (ICD-10) COPD (chronic obstructive pulmonary disease) ?J44.9 - Chronic obstructive pulmonary disease, unspecified (ICD-10) CAD (coronary artery disease) ?I25.10 - Atherosclerotic heart disease of [place] coronary artery without angina pectoris (ICD-10) Multiple sclerosis ?G35 - Multiple sclerosis (ICD-10) Surgical History Status post-operative repair of closed fracture of left hip (1998) ?Z98.890 - Other specified postprocedural states (ICD-10) ?Z87.81 - Personal history of (healed) traumatic fracture (ICD-10) History of tonsillectomy ?Z90.89 - Acquired absence of other organs (ICD-10) History of percutaneous coronary intervention (04/09/05) ?Z98.61 - Coronary angioplasty status (ICD-10) History of hysterectomy ?Z90.710 - Acquired absence of both cervix and uterus (ICD-10) History of colonoscopy ?Z98.890 - Other specified postprocedural states (ICD-10) History of toe surgery ?Z98.890 - Other specified postprocedural states (ICD-10) History of coronary artery stent placement ?Z95.5 - Presence of coronary angioplasty implant and graft (ICD-10) Family History Father CHF (congestive heart failure) Other Coronary artery disease Diabetes Mental disorder Seizure disorder Social History Narrative: No smoker Does not drink alcohol Does not use illicit drugs What is your current living situation?: I presently have a place to live Problems where you live: no known problems Problems where you live details: n/a In the past 12 months, utilities in danger of being shut off: no In past 12 months, lack of transportation kept you from medical appts, meetings, work, or getting things needed for daily living: yes In the past 12 mos, have been you worried that your food would run out before you had money to buy more?: never true In the past 12 mos, the food you bought just didn't last and you didn't have money to buy more?: never true Highest level of school completed/degree received: some college, no degree Smoking Status: Former smoker Do you use any of these nicotine containing products: None Second hand tobacco smoke exposure: No How often do you have a drink containing alcohol: monthly or less AUDIT-C Alcohol total score: 1 Non-prescribed substance use: denies use Caffeine: Yes (coffee) How often does anyone, including family, friends and others, physically hurt you: never How often does anyone, including family, friends and others, insult or talk down to you: never How often does anyone, including family, friends and others, threaten you with harm: never How often does anyone, including family, friends and others, scream or curse at you: never Little interest or pleasure in doing things: nearly every day Feeling down, depressed, or hopeless: nearly every day service: No Exam Narrative: Exam Narrative: Patient is seen in room 7, she is alert oriented answers my questions normally, her pupils equal round react to light her TMs normal oropharynx is normal there is no adenopathy anterior posterior chains, chest is good air entry bilaterally no wheezing crackles noted her heart sounds are normal there is no clicks murmurs or gallops she moves all extremities independently and well, abdomen is soft and obese there is no guarding no hepatosplenomegaly she moves her extremities independently and well, with no significant weakness, she tells me she is able to mobilize with a walker. Const: Vital Signs, click to edit/add: Vital Signs - 24 hr 09/23/23 22:48 09/24/23 00:05 09/24/23 01:00 Temperature 98.7 F Pulse Rate [Right Pulse Oximeter] 89 81 84 Respiratory Rate 18 18 18 Blood Pressure [Le ft Forearm] 243/95 H 210/67 H 167/55 H Pulse Oximetry 93 95 92 Oxygen Delivery Me thod Room Air Nasal Cannula Room Air Oxygen Flow Rate 1 09/24/23 02:00 09/24/23 04:00 Temperature 98.4 F Pulse Rate [Right Pulse Oximeter] 84 84 Respiratory Rate 18 18 Blood Pressure [Le ft Forearm] 157/50 H 148/62 H Pulse Oximetry 93 92 Oxygen Delivery Me thod Room Air Room Air Oxygen Flow Rate Course Course ED Course: Patient blood pressure is come down nicely with in a combination of 5 mg of amlodipine along 8.1 mg of clonidine. Her blood pressure is now 150 systolic, she is in symptomatic. Feels much improved. She is able to get up with her walker and walk around and go to the bathroom. Really no external signs of trauma, her head CT is negative, D-dimer was elevated, so I did do a chest CT, which did not show a blood clot. Or any significant pneumonia or abnormality. I do believe that she likely missed medication doses, she has had elevated blood pressures as I noted. In the clinic. The 200 range. Given the fact she was symptomatic, I think increasing her amlodipine to 10 mg, from 5. Would be appropriate have a follow-up within the week. We did arrange transfer if she has a history of weakness, and history of MS. Vital Signs Vital signs: Initial Vital Signs Temperature 98.7 F 09/23/23 22:48 Temperature Source Temporal Artery Scan 09/23/23 22:48 Pulse Rate 89 09/23/23 22:48 Pulse Rhythm Regular 09/23/23 22:48 Respiratory Rate 18 09/23/23 22:48 Blood Pressure 243/95 H 09/23/23 22:48 Blood Pressure Mean 144 H 09/23/23 22:48 Blood Pressure Position Supine 09/23/23 22:48 Pulse Oximetry 93 09/23/23 22:48 Oxygen Delivery Method Room Air 09/23/23 22:48 Vital Signs Temperature 98.7 F 09/23/23 22:48 Pulse Rate 89 09/23/23 22:48 Respiratory Rate 18 09/23/23 22:48 Blood Pressure 243/95 H 09/23/23 22:48 Pulse Oximetry 93 09/23/23 22:48 Oxygen Delivery Method Room Air 09/23/23 22:48 Temperature 98.4 F 09/24/23 04:00 Pulse Rate 84 09/24/23 04:00 Respiratory Rate 18 09/24/23 04:00 Blood Pressure 148/62 H 09/24/23 04:00 Pulse Oximetry 92 09/24/23 04:00 Oxygen Delivery Method Room Air 09/24/23 04:00 Oxygen Flow Rate 1 09/24/23 00:05 Medications Administered Medications: Discontinued Medications Generic Name Dose Route Start Last Admin Trade Name Freq PRN Reason Stop Dose Admin Amlodipine Besylate 5 mg 09/24/23 00:23 09/24/23 00:43 Amlodipine 5 Mg Tablet PO 09/24/23 00:24 5 mg ONCE ONE Administration Clonidine HCl 0.1 mg 09/23/23 23:08 09/23/23 23:45 Clonidine Hcl 0.1 Mg Tablet PO 09/23/23 23:09 0.1 mg ONCE ONE Administration Medical Decision Making [facility] Narrative Medical decision making narrative: Life-threatening differential diagnosis include subarachnoid hemorrhage, meningitis, encephalitis, carbon monoxide poisoning, and intracerebral hemorrhage. Other differential diagnosis include but not limited to migraine, cluster headache, tension headache, DRUG ABUSE PROGRAM COORDINATOR vasculitis, mass lesion, temporal arteritis, click acute closed angle glaucoma, septal and trigeminal neuralgia, sinusitis, closed head injury, and stroke he Given the fact she did have some shortness of breath of this, and her D-dimer is elevated we will do a chest CT. Medical Records Medical records reviewed: Yes I reviewed the patient's medical records Lab Data Lab results reviewed: Yes I reviewed the patient's lab results Labs: Lab Results 09/23/23 09/23/23 09/23/23 Range/Units 23:25 23:30 23:45 WBC 7.50 (4.50-11.00) K/uL RBC 4.25 (4.00-5.20) m/uL Hgb 13.6 (12.0-16.0) gm/dL Hct 41.2 (33.0-51.0) % MCV 97 (80-100) fL MCH 32 (26-34) pg MCHC 33 (32-36) gm/dL RDW Coeff of [place] 13.3 (11.5-15.5) % Plt Count 157 (140-440) K/uL Neut % (Auto) 80.2 H (42.0-72.0) % Lymph % (Auto) 4.8 L (20-44) % [place] % (Auto) 10.3 (0.0-11.0) % Eos % (Auto) 3.5 (0.0-7.0) % Baso % (Auto) 0.5 (0.0-3.0) % Neut # (Auto) 6.00 (1.7-7.0) K/uL Lymph # (Auto) 0.40 L (0.90-2.90) K/uL [place] # (Auto) 0.80 (0.00-0.90) K/UL Eos # (Auto) 0.26 (0.00-0.50) K/uL Baso # (Auto) 0.04 (0.00-0.30) K/uL Abs Immat Gran (auto) 0.05 (0.00-0.30) K/uL Imm/Tot Granulo (auto) 0.7 % D-Dimer Quant (PE/DVT) 1.12 H (0.00-0.50) ug/ml Sodium 138 (135-149) mmol/L Potassium 4.3 (3.6-5.1) mmol/L Chloride 100 (96-114) mmol/L Carbon Dioxide 31 (20-32) mmol/L Anion Gap 7 (7-15) mEq/L BUN 35 H (7-30) mg/dL Creatinine 1.3 (0.5-1.5) mg/dL Estimated Creat Clear 29.57 Estimated GFR 43 ml/min Glucose 166 H (60-115) mg/dL Calcium 9.8 (8.4-10.6) mg/dL NT-Pro-B Natriuret Pep 932 pg/mL Urine Color Yellow (Yellow) Urine Appearance Clear (Clear) Urine pH 7.5 (5.0-8.5) Ur Specific [place] 1.025 (1.000-1.030) Urine Protein 3+ A (Negative) Urine Glucose (UA) Negative (Negative) Urine Ketones Negative (Negative) Urine Blood 1+ A (Negative) Urine Nitrite Negative (Negative) Urine Bilirubin Negative (Negative) Urine Urobilinogen 0.2 (0.2-1.0) Ur Leukocyte Esterase Negative (Negative) Urine RBC 2-5 A (0-2) Urine WBC 0-2 (0-5) Ur Squamous Epith Cells Few (None-Few) Urine Bacteria Few A (None) Urine Opiates Screen Negative (Negative) Ur Oxycodone Screen Negative (Negative) Urine Methadone Screen Negative (Negative) Ur Propoxyphene Screen Negative (Negative) Ur Barbiturates Screen Negative (Negative) U Tricyclic Antidepress Negative (Negative) Ur Phencyclidine Scrn Negative (Negative) Ur Amphetamines Screen Negative (Negative) U Methamphetamines Scrn Negative (Negative) U Benzodiazepines Scrn Negative (Negative) Urine Cocaine Screen Negative (Negative) U Marijuana (THC) Screen Negative (Negative) Ur Drug Screen Comment See Note Ethyl Alcohol < 0.01 L (0.01-0.03) % SARS-CoV-2 (PCR) Negative SARS-CoV-2 (Negative) Influenza Type A (PCR) Negative PCR FLU A (Negative) Influenza Type B (PCR) Negative PCR FLU B (Negative) RSV (PCR) Negative PCR RSV (Negative) POC Troponin I 0.01 (0.01-0.04) ng/ml ECG Data Attestation: I personally reviewed and interpreted this ECG as follows: Interpretation: Normal sinus rhythm, and no acute changes, no specific change, ventricular rate 83. Discharge Plan Discharge Prescriptions: No Action calcium carbonate [Calcium 600] 600 mg calcium (1,500 mg) tablet 600 mg PO BID omega 3-aav-byh-fish oil 1,000 mg (120 mg-180 mg) capsule 1 cap PO BID Patient Comments: TAKE 1 CAPSULE BY MOUTH TWICE DAILY 1200mg strength ferrous sulfate 325 mg (65 mg iron) tablet 325 mg PO DAILY [id number] 1 tab PO DAILY docusate sodium [Colace] 100 mg capsule 100 mg PO .MO,WE,FR@09 Rx Instructions: take - in the morning cholecalciferol (vitamin D3) 50 mcg (2,000 unit) capsule 50 mcg PO DAILY magnesium 250 mg tablet 250 mg PO HS ascorbic acid (vitamin C) [Vitamin C] 1,000 mg tablet 1,000 mg PO DAILY gabapentin 600 mg tablet 600 mg PO QHS Qty: 90 1RF diltiazem HCl 90 mg capsule,extended release 12 hr 90 mg PO BID Qty: 60 3RF (DME) Accu-Chek Guide test strips Strip See Rx Instructions .Route Qty: 100 1RF Rx Instructions: As directed (DME) lancets [Accu-Chek Softclix Lancets] Misc See Rx Instructions .ROUTE .MEDSUPPLY Qty: 100 0RF Rx Instructions: 1-4 times daily, and prn symptoms ipratropium bromide 21 mcg (0.03 %) spray,non-aerosol 2 spray intranasal TID PRN (Reason: for allergies) Qty: 30 1RF aspirin [Adult Low Dose Aspirin] 81 mg tablet,delayed release (DR/EC) 162 mg PO QDAY sennosides-docusate sodium [Stool Softener-Laxative] 8.6-50 mg Tablet 1 tab PO BID PRNQty: 30 0RF glimepiride 1 mg tablet 0.5 mg PO DAILY aripiprazole 10 mg tablet 10 mg PO HS simvastatin 40 mg tablet 40 mg PO HS Qty: 90 3RF carvedilol 12.5 mg tablet 12.5 mg PO BID Qty: 180 0RF levothyroxine 75 mcg tablet 75 mcg PO DAILY Qty: 90 0RF duloxetine 60 mg capsule,delayed release(DR/EC) 60 mg PO BID Qty: 180 0RF baclofen 10 mg tablet 20 mg PO BID Qty: 360 0RF amlodipine 5 mg tablet 5 mg PO QDAY Follow Up/Referrals: Santa Rowan DO [Primary Care Provider] -
[2023-09-24 01:00] VITALS: BP 167/55; PULSE 84; RESP 18; O2SAT 92
--- NOTE | 2023-09-24 01:05 | CRLHL7_ITS ---
For Patients: As a result of the Century Cures Act, medical imaging exams and procedure reports are released immediately into your electronic medical record. You may view this report before your referring provider. If you have questions, please contact your health care provider. INDICATION: Shortness of breath. TECHNIQUE: CT chest PE was acquired with 95 cc Isovue 370 IV contrast. COMPARISON: 08/07/2023. FINDINGS: Heart and vasculature: Contrast opacification of the pulmonary arterial tree is adequate. No sign of pulmonary embolism. Stable mild cardiomegaly. Thoracic aorta is normal in caliber. Stable enlarged main pulmonary artery measuring 3.2 cm, suggestive of underlying pulmonary hypertension. Aortic and coronary artery calcifications. Lungs and pleura: Biapical scarring. Mosaic attenuation. Stable 2 cm right lower lobe nodule containing calcifications (series 2, image 118). No new nodule. No pleural effusions, pleural thickening, or pneumothorax. Lymph nodes/mediastinum: No mediastinal, hilar, or axillary adenopathy. Stable appearance of the thyroid. Chest wall: No masses. Upper abdomen: No acute or significant findings. Bones: Unremarkable for age. IMPRESSION: 1. No evidence of pulmonary embolism. 2. Mosaic attenuation, likely reflecting air trapping. 3. Stable 2 cm right lower lobe nodule. No new pulmonary nodule. Please note that all CT scans at this facility use dose modulation, iterative reconstruction, and/or weight-based dosing when appropriate to reduce radiation dose to as low as reasonably achievable. Dictated by Jovani Bauer MD @ 09/24/2023 3:08:34 AM (Electronically Signed)
[2023-09-24 02:00] VITALS: BP 157/50; PULSE 84; RESP 18; O2SAT 93
[2023-09-24 04:00] VITALS: BP 148/62; PULSE 84; RESP 18; TEMP 36.9; O2SAT 92
--- NOTE | 2023-09-24 04:50 | ED.NURSE ---
pt transported back to living facility by [facility].
[2023-09-24 05:55] LABS: Troponin, Point-of-Care* 0.01 ng/ml (0.01-0.04)
== END 2023-09-24 06:07 | disposition home or self-care (01) ==
PROVIDERS: Emergency Provider Family Medicine; PCP Family Medicine
DX: I10 Essential (primary) hypertension (principal)
CPT/HCPCS: 36415; 70450; 71275; 80048; 80306; 81001; 82077; 83880; 84484; 85025; 85379; 87086; 87631; 93005; 95992; 99284; A9270; Q9967

== ENCOUNTER 2023-09-24 04:45 | Outpatient (CLI) | payer BC, SELFPAY | END 2023-09-24 04:46 | disposition home or self-care (01) | LOC: AMB 09-29 07:20 | PROVIDERS: PCP Family Medicine; Visit Provider Family Medicine | DX: R06.02 Shortness of breath (principal); I10 Essential (primary) hypertension | CPT/HCPCS: A0425; A0428 ==

== ENCOUNTER 2023-09-26 11:10 | Inpatient (IN) | payer BC, SELFPAY ==
[2023-09-26] VITALS (35 sets, daily range): BP systolic 97–185; BP diastolic 42–92; PULSE 58–81; RESP 16–18; TEMP 36.4–36.9; O2SAT 84–96; BMI 25.6
--- NOTE | 2023-09-26 11:30 | ED_ITS ---
HPI - SOB/Dyspnea General Time Seen by Provider: 11:30 Date Seen: 09/26/23 Chief Complaint: Shortness of Breath/Dyspnea Stated Complaint: shortness of breath Time Seen by Provider: 09/26/23 11:23 Source: patient, EMS, RN notes reviewed and old records reviewed Mode of arrival: EMS Limitations: no limitations History of Present Illness HPI Narrative: This 73-year-old female is brought in by EMS from the [facility] where she reportedly resides in assisted living. Her home health nurse actually called 911 due to the fact that her O2 sats were 70%. There was reportedly a complaint of shortness of breath but Akiko is stating she is not short of breath. She is telling me that she does not here at pumping, that we are just letting her dye here in the hospital. She keeps repeating this. I reviewed with her that I was the physician, had no intent on just letting her , that it was there to evaluate her. Tried explaining that are oxygen is just free- flowing, that she is getting oxygen. She kept repeating this, would demonstrate understanding about what I was telling her but then fall back to stating that she was not hearing it pumping. She is denying shortness of breath, denying chest pain. She really keeps focusing on the fact that she does not here at pumping. To the best of my ability, I think she is talking about the oxygen, r eviewed with her multiple times that ours is just free flowing through the nasal cannula. She was 89-90% when I was in with her. She reportedly does not have oxygen at home, carries a diagnosis of COPD but I see no pulmonary medicines. When EMS arrived, burak was already present on the scene and had patient on O2 in she was in the 80% range, I do not know how much oxygen they had on her or the e xact level she was at. EMS reported the maintained oxygen in route in gave patient a DuoNeb, she went up to 98 100% route. There gone by the time I see patient, do not know what they maintenance her at for oxygen EN route. She was recently in the ER on 09/24/2023 for hypertension, had a negative chest CT PE. Her POLST shows her to be DNR, DNI, comfort measures, no artificial nutrition. Her past medical history on her diagnoses on her paperwork shows multiple sclerosis, major depressive disorder, hyperlipidemia, hypothyroidism, hypertension, coronary artery disease, believe she has had a stent placement, chronic kidney disease stage 3, anxiety, constipation, peripheral arterial disease, COPD. Of note when ask her if she has multiple sclerosis she denies this today. Related Data Home Medications Medication Instructions Recorded Confirmed aspirin 81 mg tablet,delayed 162 mg PO QDAY 06/10/22 09/26/23 release (Adult Low Dose Aspirin) calcium carbonate 600 mg calcium 600 mg PO BID 12/16/22 09/26/23 (1,500 mg) tablet (Calcium) cholecalciferol (vitamin D3) 50 50 mcg PO DAILY 12/16/22 09/26/23 mcg (2,000 unit) capsule docusate sodium 100 mg capsule 100 mg PO .MOWE,FR@12/16/22 09/26/23 (Colace) ferrous sulfate 325 mg (65 mg 325 mg PO DAILY 12/16/22 09/26/23 iron) tablet magnesium 250 mg tablet 250 mg PO HS 12/16/22 09/26/23 omega 3-oht-cin-fish oil 1,000 mg 1 cap PO BID 12/16/22 09/26/23 (120 mg-180 mg) capsule jznhbhbo-yty-Lf-FA 1 tab PO DAILY 12/16/22 09/26/23 ascorbic acid (vitamin C) 1,000 mg 1,000 mg PO DAILY 05/21/23 09/26/23 tablet (Vitamin C) aripiprazole 10 mg tablet 10 mg PO HS 08/08/23 09/26/23 glimepiride 1 mg tablet 0.5 mg PO DAILY 08/08/23 09/26/23 Previous Rx's Medication Instructions Recorded sennosides 8.6 mg-docusate sodium 1 tab PO BID PRN #30 tabs 06/04/22 50 mg tablet (Stool Softener-Laxative) simvastatin 40 mg tablet 40 mg PO HS #90 tabs 05/26/23 carvedilol 12.5 mg tablet 12.5 mg PO BID #180 tabs 07/17/23 levothyroxine 75 mcg tablet 75 mcg PO DAILY #90 tabs 07/24/23 gabapentin 600 mg tablet 600 mg PO QHS #90 tabs 07/30/23 blood sugar diagnostic (Accu-Chek #100 ea 08/27/23 Guide test strips) diltiazem HCl 90 mg 90 mg PO BID #60 caps 08/27/23 capsule,extended release 12 hr ipratropium bromide 21 mcg (0.03 2 spray intranasal TID PRN for 08/27/23 %) nasal spray allergies #30 mL baclofen 10 mg tablet 20 mg (2 x 10 mg) PO BID #360 tabs 08/28/23 duloxetine 60 mg capsule,delayed 60 mg PO BID #180 caps 08/28/23 release amlodipine 10 mg tablet 10 mg PO QDAY #90 tabs 09/24/23 lancets (Accu-Chek Softclix #100 ea 09/25/23 Lancets) Allergies Allergy/AdvReac Type Severity Reaction Status Date / Time ketorolac [From Toradol] Allergy Intermediate Agitated Verified 09/26/23 11:17 codeine Allergy Verified 09/26/23 11:17 Review of Systems Status of ROS: Reports: unobtainable due to medical condition PFSH [facility] Medical History Pulmonary nodule ?R91.1 - Solitary pulmonary nodule (ICD-10) Atrophic rhinitis ?J31.0 - Chronic rhinitis (ICD-10) Anxiety ?F41.9 - Anxiety disorder, unspecified (ICD-10) Elevated cholesterol ?E78.00 - Pure hypercholesterolemia, unspecified (ICD-10) Arthritis ?M19.90 - Unspecified osteoarthritis, unspecified site (ICD-10) Sleep apnea ?G47.30 - Sleep apnea, unspecified (ICD-10) History of benzodiazepine use ?Z87.898 - Personal history of other specified conditions (ICD-10) Hypoxia ?R09.02 - Hypoxemia (ICD-10) History of fracture of left hip ?Z87.81 - Personal history of (healed) traumatic fracture (ICD-10) Fall ?W19.XXXA - Unspecified fall, initial encounter (ICD-10) Acute electrocardiogram changes ?R94.31 - Abnormal electrocardiogram [ECG] [EKG] (ICD-10) Closed fracture of left hip requiring operative repair ?S72.002A - Fracture of unspecified part of neck of left femur, initial encounter for closed fracture (ICD-10) MAKAYLA on CPAP ?G47.33 - Obstructive sleep apnea (adult) (pediatric) (ICD-10) ?Z99.89 - Dependence on other enabling machines and devices (ICD-10) Osteoporosis ?M81.0 - Age-related osteoporosis without current pathological fracture (ICD- 10) Valvular heart disease ?I38 - Endocarditis, valve unspecified (ICD-10) Myocardial infarction ?I21.9 - Acute myocardial infarction, unspecified (ICD-10) Mass of right lung ?R91.8 - Other nonspecific abnormal finding of lung field (ICD-10) Hypothyroid ?E03.9 - Hypothyroidism, unspecified (ICD-10) HTN (hypertension) ?I10 - Essential (primary) hypertension (ICD-10) DECLAN (generalized anxiety disorder) ?F41.1 - Generalized anxiety disorder (ICD-10) Dyslipidemia ?E78.5 - Hyperlipidemia, unspecified (ICD-10) Diabetes mellitus ?E11.9 - Type 2 diabetes mellitus without complications (ICD-10) Acute depression ?F32.A - Depression, unspecified (ICD-10) COPD (chronic obstructive pulmonary disease) ?J44.9 - Chronic obstructive pulmonary disease, unspecified (ICD-10) CAD (coronary artery disease) ?I25.10 - Atherosclerotic heart disease of [place] coronary artery without angina pectoris (ICD-10) Multiple sclerosis ?G35 - Multiple sclerosis (ICD-10) Surgical History Status post-operative repair of closed fracture of left hip (1998) ?Z98.890 - Other specified postprocedural states (ICD-10) ?Z87.81 - Personal history of (healed) traumatic fracture (ICD-10) History of tonsillectomy ?Z90.89 - Acquired absence of other organs (ICD-10) History of percutaneous coronary intervention (04/09/05) ?Z98.61 - Coronary angioplasty status (ICD-10) History of hysterectomy ?Z90.710 - Acquired absence of both cervix and uterus (ICD-10) History of colonoscopy ?Z98.890 - Other specified postprocedural states (ICD-10) History of toe surgery ?Z98.890 - Other specified postprocedural states (ICD-10) History of coronary artery stent placement ?Z95.5 - Presence of coronary angioplasty implant and graft (ICD-10) Family History Father CHF (congestive heart failure) Other Coronary artery disease Diabetes Mental disorder Seizure disorder Social History Narrative: No smoker Does not drink alcohol Does not use illicit drugs What is your current living situation?: I presently have a place to live Problems where you live: no known problems Problems where you live details: n/a In the past 12 months, utilities in danger of being shut off: no In past 12 months, lack of transportation kept you from medical appts, meetings, work, or getting things needed for daily living: yes In the past 12 mos, have been you worried that your food would run out before you had money to buy more?: never true In the past 12 mos, the food you bought just didn't last and you didn't have money to buy more?: never true Highest level of school completed/degree received: some college, no degree Smoking Status: Former smoker Do you use any of these nicotine containing products: None Second hand tobacco smoke exposure: No How often do you have a drink containing alcohol: monthly or less AUDIT-C Alcohol total score: 1 Non-prescribed substance use: denies use Caffeine: Yes (coffee) How often does anyone, including family, friends and others, physically hurt you : never How often does anyone, including family, friends and others, insult or talk down to you: never How often does anyone, including family, friends and others, threaten you with harm: never How often does anyone, including family, friends and others, scream or curse at you: never Little interest or pleasure in doing things: nearly every day Feeling down, depressed, or hopeless: nearly every day service: No Exam Const: Vital Signs, click to edit/add: Vital Signs - 24 hr 09/26/23 11:20 09/26/23 11:25 09/26/23 11:30 Temperature 97.6 F Pulse Rate 70 70 Pulse Rate [Pulse Oximeter] 68 Respiratory Rate 16 Blood Pressure Blood Pressure [Ri ght Upper Arm] 125/50 L Pulse Oximetry 91 93 89 Oxygen Delivery Me thod Nasal Cannula Oxygen Flow Rate 2 09/26/23 11:32 09/26/23 11:37 09/26/23 12:00 Temperature Pulse Rate 68 68 Pulse Rate [Pulse Oximeter] Respiratory Rate Blood Pressure 127/57 L Blood Pressure [Ri ght Upper Arm] Pulse Oximetry 90 91 92 Oxygen Delivery Me thod Nasal Cannula Oxygen Flow Rate 2 09/26/23 12:01 09/26/23 12:02 09/26/23 12:32 Temperature Pulse Rate 68 67 Pulse Rate [Pulse Oximeter] Respiratory Rate Blood Pressure 142/52 H 116/58 L Blood Pressure [Ri ght Upper Arm] Pulse Oximetry 90 90 Oxygen Delivery Me thod Nasal Cannula Oxygen Flow Rate 2 09/26/23 12:45 09/26/23 13:00 09/26/23 13:01 Temperature Pulse Rate 66 66 68 Pulse Rate [Pulse Oximeter] Respiratory Rate Blood Pressure 120/56 L Blood Pressure [Ri ght Upper Arm] Pulse Oximetry 89 93 95 Oxygen Delivery Me thod Nasal Cannula Nasal Cannula Nasal Cannula Oxygen Flow Rate 2 2 2 09/26/23 13:30 09/26/23 13:32 09/26/23 13:33 Temperature Pulse Rate 58 L 58 L 58 L Pulse Rate [Pulse Oximeter] Respiratory Rate Blood Pressure 100/51 L Blood Pressure [Ri ght Upper Arm] Pulse Oximetry 96 94 95 Oxygen Delivery Me thod Nasal Cannula Nasal Cannula Oxygen Flow Rate 2 2 2 09/26/23 14:00 09/26/23 14:01 09/26/23 14:30 Temperature Pulse Rate 58 L 58 L 60 Pulse Rate [Pulse Oximeter] Respiratory Rate Blood Pressure 97/46 L Blood Pressure [Ri ght Upper Arm] Pulse Oximetry 94 93 91 Oxygen Delivery Me thod Oxygen Flow Rate 09/26/23 14:32 09/26/23 14:33 09/26/23 15:00 Temperature Pulse Rate 61 62 81 Pulse Rate [Pulse Oximeter] Respiratory Rate Blood Pressure 108/42 L Blood Pressure [Ri ght Upper Arm] Pulse Oximetry 95 94 89 Oxygen Delivery Me thod Oxygen Flow Rate 09/26/23 15:02 09/26/23 15:30 09/26/23 15:32 Temperature Pulse Rate 80 78 77 Pulse Rate [Pulse Oximeter] Respiratory Rate Blood Pressure 179/92 H 185/86 H Blood Pressure [Ri ght Upper Arm] Pulse Oximetry 91 94 92 Oxygen Delivery Me thod Oxygen Flow Rate 09/26/23 15:47 Temperature Pulse Rate 76 Pulse Rate [Pulse Oximeter] Respiratory Rate Blood Pressure 176/61 H Blood Pressure [Ri ght Upper Arm] Pulse Oximetry 87 L Oxygen Delivery Me thod Oxygen Flow Rate This 73-year-old female is brought in by EMS on oxygen, did see her will by in she looks pale, eyes were closed, somnolent. When I go to see her in the room, she is awake but seems sleepy at times, certainly stays awake during my interaction with her. She does seem disoriented, appears pale. She has 2 L nasal cannula oxygen on, O2 sats 89-90%, she is not tachypneic. She is able to speak certainly in short phrases, is not really conversing with me though. Sclera clear, pupils seems smaller better equal and round. Neck is supple, she is lying at about 30?, no thyromegaly, no cervical adenopathy. Lungs have distant breath sounds, no wheezing or crackles. CV regular rate and rhythm soft systolic murmur, normal S1-S2, no S3-S4. Abdomen is soft, no rebound or guarding, no organomegaly. She has absolutely no lower extremity edema. Skin visualized without any rash or erythema. Documenting provider has reviewed patient's vital signs: yes Course Course ED Course: This is a patient with multiple sclerosis, report of COPD in her records but not on any inhaled medications for COPD that I see in her charts coming in with hypoxia, probable confusion. She could be hypercarbic from oxygen, will start with a venous blood gas, have asked nursing staff to have respiratory therapy come down to assess her. Will get a portable chest x-ray, full complement of labs and consideration for infectious etiology, thromboembolic disease with D- dimer being obtained. Her POLST is not pointing honest towards intubation as she is DNR DNI and recommending comfort measures. May need to talk to her emergency contacts, also does have a rifle case repairer in her paperwork. She will also be on cardiac monitoring and pulse oximetry. Reevaluation(s) Time of Reevaluation #1: 12:02 Reevaluation #1: Did review her portable chest x-ray, there are significant infiltrates, did look up her last chest x-ray done here on 08/09/2023 and is definitely changed. I certainly see left upper lobe infiltrate, multifocal infiltrates. Will proceed with chest CT noncontrast to further delineate this. She did just have a negative PE study on 09/24/2023. That CT did not show any infiltrates at that time. Time of Reevaluation #2: 14:49 Reevaluation #2: Charge at was sleeping, did take a sternal rub to awaken her, then she did wake up but started moving both of her arms at the elbows and clenching her fists in repetitive motion, she was talking through it nonsensically. Her phone started ringing, I went to grab her phone and asked her if she wanted it, she did state ?I can not talk right now?. I reviewed with her that we are likely going to put her in the hospital, reviewed that there was probably fluid buildup her congestive heart failure and potentially underlying pneumonia. She doubt fully understood what I was talking to her. I did contact her emergency contact Matthew at this time. Matthew noted that she really has been confused and asking the same thing over since she was in our ER on on the last visit a few days ago. This is more so than baseline. She in I discussed my concerns that she is quite ill. I did discuss my concerns that this perhaps could even lead to her , cannot say for sure but she does seem very altered. She did have a head CT on 09/23. Consideration for repeating neuro imaging but will wait till Matthew is up here in able to talk with me in person. Will likely talk to the hospitalist. Patient's advanced directives are clear about DNR DNI, comfort cares. Sergio would like us to proceed with IV antibiotics, IV Lasix and interventions of this nature if possible. I will talk to her about this more when she is here. Time of Reevaluation #3: 16:15 Reevaluation #3: Granddaughter by marriage Matthew and the grandson her here. We have discussed her situation. She actually told Matthew that she is dying. We did discuss comfort cares verses ongoing IV antibiotics, possible echo tomorrow, Lasix for diuresis. Matthew is wondering if we perhaps should move to comfort care. They are going to get other family together, I will attempt talk to them and make a final decision as to whether or not we moved towards comfort cares. She has received antibiotics and Lasix. At this time, Matthew is aware of this but is considering not doing further interventions. Patient is making statements about feeling like she is dying, wanting to see relatives that have passed but also telling Matthew that she is afraid to . Did review with Matthew that it is certainly appropriate to follow patient's wishes and her advanced directives. Additional Reevaluation(s): 4:18 p.m. Matthew just came out the patient's room, she states that patient is telling her that she does not want anything else done, is ready to . Matthew is requesting that we follow this and make her comfort cares. I will talk to the bunk house worker. Consultations Consultation #1: Have spoken with the hospitalist. Dr. Martinez accepts. Briefly reviewed the events that have transpired today, the request for comfort cares at this time. Time: 16:22 Vital Signs Vital signs: Initial Vital Signs Temperature 97.6 F 09/26/23 11:20 Temperature Source Temporal Artery Scan 09/26/23 11:20 Pulse Rate 68 09/26/23 11:20 Respiratory Rate 16 09/26/23 11:20 Blood Pressure 125/50 L 09/26/23 11:20 Blood Pressure Mean 75 09/26/23 11:20 Blood Pressure Position Semi-Fowlers 09/26/23 11:20 Pulse Oximetry 91 09/26/23 11:20 Oxygen Delivery Method Nasal Cannula 09/26/23 11:20 Oxygen Flow Rate 2 09/26/23 11:20 Vital Signs Temperature 97.6 F 09/26/23 11:20 Pulse Rate 68 09/26/23 11:20 Respiratory Rate 16 09/26/23 11:20 Blood Pressure 125/50 L 09/26/23 11:20 Pulse Oximetry 91 09/26/23 11:20 Oxygen Delivery Method Nasal Cannula 09/26/23 11:20 Oxygen Flow Rate 2 09/26/23 11:20 Temperature 97.6 F 09/26/23 11:20 Pulse Rate 76 09/26/23 15:47 Respiratory Rate 16 09/26/23 11:20 Blood Pressure 176/61 H 09/26/23 15:47 Pulse Oximetry 87 L 09/26/23 15:47 Oxygen Delivery Method Nasal Cannula 09/26/23 13:32 Oxygen Flow Rate 2 09/26/23 13:33 Medications Administered Medications: Discontinued Medications Generic Name Dose Route Start Last Admin Trade Name Freq PRN Reason Stop Dose Admin Azithromycin 500 mg 12/15/23 13:58 09/26/23 15:26 Azithromycin 250 Mg Tablet PO 09/26/23 13:59 500 mg ONCE ONE Administration Furosemide 20 mg 09/26/23 13:58 09/26/23 15:16 Furosemide 10 Mg/Ml Inj IVP 09/26/23 13:59 20 mg ONCE ONE Administration Ceftriaxone Sodium 1 gm/ 100 mls @ 200 mls/hr 09/26/23 13:58 09/26/23 16:00 Sodium Chloride IVPB 09/26/23 13:59 Infused ONCE ONE Infusion MDM - SOB/Dyspnea Differential Diagnosis Differential diagnosis: Likely acute exacerbation of chronic obstructive airways disease, congestive heart failure, community acquired pneumonia and pulmonary embolism Lab Data Attestation: I reviewed the patient's lab results. Labs: Lab Results 09/26/23 09/26/23 09/26/23 Range/Units 11:47 12:10 12:12 WBC 7.27 (4.50-11.00) K/uL RBC 3.60 L (4.00-5.20) m/uL Hgb 11.6 L (12.0-16.0) gm/dL Hct 34.8 (33.0-51.0) % MCV 97 (80-100) fL MCH 32 (26-34) pg MCHC 33 (32-36) gm/dL RDW Coeff of [place]ba 13.2 (11.5-15.5) % Plt Count 150 (140-440) K/uL Neut % (Auto) 83.7 H (42.0-72.0) % Lymph % (Auto) 9.9 L (20-44) % Boyd % (Auto) 4.1 (0.0-11.0) % Eos % (Auto) 1.7 (0.0-7.0) % Baso % (Auto) 0.6 (0.0-3.0) % Neut # (Auto) 6.10 (1.7-7.0) K/uL Lymph # (Auto) 0.70 L (0.90-2.90) K/uL Boyd # (Auto) 0.30 (0.00-0.90) K/UL Eos # (Auto) 0.12 (0.00-0.50) K/uL Baso # (Auto) 0.04 (0.00-0.30) K/uL Abs Immat Gran (auto) 0.00 (0.00-0.30) K/uL Imm/Tot Granulo (auto) 0.0 % D-Dimer Quant (PE/DVT) 0.95 H (0.00-0.50) ug/ml VBG pH 7.379 (7.32-7.43) VBG pCO2 49 (40-50) mmHG VBG pO2 48.1 H (25-47) mmHG VBG HCO3 29 H (21-28) mmol/L Sodium 135 (135-149) mmol/L Potassium 4.4 (3.6-5.1) mmol/L Chloride 101 (96-114) mmol/L Carbon Dioxide 27 (20-32) mmol/L Anion Gap 7 (7-15) mEq/L BUN 51 H (7-30) mg/dL Creatinine 2.9 H (0.5-1.5) mg/dL Estimated Creat Clear 13.26 Estimated GFR 16 ml/min Glucose 162 H (60-115) mg/dL Lactate 0.8 (0.5-1.9) mmol/L Calcium 8.6 (8.4-10.6) mg/dL Total Bilirubin 0.4 (0.1-1.5) mg/dL AST 55 H (12-35) U/L ALT 27 (4-35) U/L Alkaline Phosphatase 55 (40-150) U/L Troponin I 0.02 (0.01-0.04) ng/mL C-Reactive Protein 1.0 (0.5-1.0) mg/dL NT-Pro-B Natriuret Pep 1610 pg/mL Total Protein 7.0 (6.0-8.3) g/dL Albumin 3.9 (3.3-5.0) g/dL Procalcitonin 0.31 (<0.50) ng/mL Ethyl Alcohol < 0.01 L (0.01-0.03) % SARS-CoV-2 (PCR) Negative SARS-CoV-2 (Negative) Influenza Type A (PCR) Negative PCR FLU A (Negative) Influenza Type B (PCR) Negative PCR FLU B (Negative) RSV (PCR) Negative PCR RSV (Negative) Lab Acknowledgement Test Added Imaging Data Chest x-ray: Attestation: I have reviewed the pertinent imaging results. Radiologist's impression: Patient: [facility] Facility:?[facility] Patient ID:?[id number] Site Patient ID:?[id number]. Site :?[id number] Study:?XRay Chest Portable 1v-09/26/2023 12:05:04 PM Ordering Physician:?Wilfredo Savage Final Report: INDICATION: Hypoxia and altered mental status COMPARISON: Radiograph 08/09/2023, CT chest 09/24/2023 TECHNIQUE: 1 view chest radiograph. FINDINGS: Lung volumes are moderate. Underlying left greater than right upper lobe bronchiectasis in distortion. There are some left upper lobe superimposed patchy opacities that have increased since the prior chest radiograph. No pulmonary edema. No pleural effusion. No pneumothorax. No pneumomediastinum. Unchanged cardiomediastinal silhouette. Bones: Normal for age. IMPRESSION: Increased patchy opacities in the left upper lobe around a area of underlying bronchiectasis and distortion, may be superimposed infection. Dictated by Linette Salamanca MD @ 09/26/2023 12:44:43 PM (Electronic Signature) CT scan - chest: Attestation: I have reviewed the pertinent imaging results. Radiologist's impression: Patient: [facility] Facility:?[facility] Patient ID:?[id number] Site Patient ID:?[id number]. Site :?[id number] Study:?CT Chest WITHOUT-09/26/2023 12:51:59 PM Ordering Physician:?Wilfredo Savage Final Report: INDICATION: Hypoxia. Abnormal chest x-ray. TECHNIQUE: CT chest without contrast. COMPARISON: CT chest 09/24/2023 08/07/2023. FINDINGS: Lungs and pleura: Stable 2 centimeter right lower lobe pulmonary nodule. Small bilateral pleural effusions, both new compared to 09/24/2023. new/increased lobular septal thickening and patchy ground-glass opacities throughout the lungs, likely reflecting pulmonary edema. Unchanged fibrosis at both lung apices. No pleural effusions, pleural thickening, or pneumothorax. Heart and vasculature: Heart size is normal. Thoracic aorta is normal in caliber. Unchanged mild enlargement of the main pulmonary artery measuring 3.2 centimeters. Severe coronary artery calcification. Aortic valve calcifications. Mild aortic calcification.. Lymph nodes/mediastinum: No mediastinal, hilar, or axillary adenopathy. Chest wall: No masses. Upper abdomen: Small layering gallstones.. Bones: Degenerative spondylosis. IMPRESSION: 1. New small bilateral pleural effusions. New/increasing interlobular septal thickening and patchy ground-glass opacities in pattern compatible pulmonary edema. 2. Stable 2 centimeter right lower lobe pulmonary nodule. 3. Unchanged fibrosis at both lung apices. 4. Severe coronary artery calcification. 5. Aortic valve calcifications. Correlate for aortic stenosis Please note that all CT scans at this facility use dose modulation, iterative reconstruction, and/or weight-based dosing when appropriate to reduce radiation dose to as low as reasonably achievable. Dictated by Vasiliy Perez MD @ 09/26/2023 1:55:57 PM (Electronic Signature) ECG Data Attestation: I personally reviewed and interpreted this ECG as follows: (Sinus rhythm with a PAC seen, 60 beats per minute. No ischemic change noted. QT corrected 408 milliseconds.) ECG interpretation date: 09/26/23 ECG interpretation time: 12:03 Critical Care Time Critical Care Time Critical Care Time: No Discharge Plan Discharge Clinical Impression: Congestive heart failure, Need for comfort care, Pneumonia Patient Disposition: Admitted As Observation
--- NOTE | 2023-09-26 11:37 | CRLHL7_ITS ---
For Patients: As a result of the Cures Act, medical imaging exams and procedure reports are released immediately into your electronic medical record. You may view this report before your referring provider. If you have questions, please contact your health care provider. INDICATION: Hypoxia and altered mental status COMPARISON: Radiograph 08/09/2023, CT chest 09/24/2023 TECHNIQUE: 1 view chest radiograph. FINDINGS: Lung volumes are moderate. Underlying left greater than right upper lobe bronchiectasis in distortion. There are some left upper lobe superimposed patchy opacities that have increased since the prior chest radiograph. No pulmonary edema. No pleural effusion. No pneumothorax. No pneumomediastinum. Unchanged cardiomediastinal silhouette. Bones: Normal for age. IMPRESSION: Increased patchy opacities in the left upper lobe around a area of underlying bronchiectasis and distortion, may be superimposed infection. Dictated by Linette Salamanca MD @ 09/26/2023 12:44:43 PM (Electronically Signed)
--- NOTE | 2023-09-26 11:50 | CRLHL7_ITS ---
For Patients: As a result of the Century Cures Act, medical imaging exams and procedure reports are released immediately into your electronic medical record. You may view this report before your referring provider. If you have questions, please contact your health care provider. INDICATION: Hypoxia. Abnormal chest x-ray. TECHNIQUE: CT chest without contrast. COMPARISON: CT chest 09/24/2023 08/07/2023. FINDINGS: Lungs and pleura: Stable 2 centimeter right lower lobe pulmonary nodule. Small bilateral pleural effusions, both new compared to 09/24/2023. new/increased lobular septal thickening and patchy ground-glass opacities throughout the lungs, likely reflecting pulmonary edema. Unchanged fibrosis at both lung apices. No pleural effusions, pleural thickening, or pneumothorax. Heart and vasculature: Heart size is normal. Thoracic aorta is normal in caliber. Unchanged mild enlargement of the main pulmonary artery measuring 3.2 centimeters. Severe coronary artery calcification. Aortic valve calcifications. Mild aortic calcification.. Lymph nodes/mediastinum: No mediastinal, hilar, or axillary adenopathy. Chest wall: No masses. Upper abdomen: Small layering gallstones.. Bones: Degenerative spondylosis. IMPRESSION: 1. New small bilateral pleural effusions. New/increasing interlobular septal thickening and patchy ground-glass opacities in pattern compatible pulmonary edema. 2. Stable 2 centimeter right lower lobe pulmonary nodule. 3. Unchanged fibrosis at both lung apices. 4. Severe coronary artery calcification. 5. Aortic valve calcifications. Correlate for aortic stenosis Please note that all CT scans at this facility use dose modulation, iterative reconstruction, and/or weight-based dosing when appropriate to reduce radiation dose to as low as reasonably achievable. Dictated by Vasiliy Perez MD @ 09/26/2023 1:55:57 PM (Electronically Signed)
[2023-09-26 12:19] LABS: HCO3 VBG 29 mmol/L (21-28); PCO2 VBG 49 mmHG (40-50); PO2 VBG 48.1 mmHG (25-47); pH VBG 7.379 (7.32-7.43)
[2023-09-26 12:24] LABS: Lactate* 0.8 mmol/L (0.5-1.9)
[2023-09-26 12:26] LABS: Basophils Absolute Auto 0.04 K/uL (0.00-0.30); Basophils Percent Auto 0.6 % (0.0-3.0); Eosinophils Absolute Auto 0.12 K/uL (0.00-0.50); Eosinophils Percent Auto 1.7 % (0.0-7.0); Hematocrit 34.8 % (33.0-51.0); Hemoglobin* 11.6 gm/dL (12.0-16.0); Lymphocytes Percent Auto 9.9 % (20-44); Mean Corpuscular HGB Conc 33 gm/dL (32-36); Mean Corpuscular Hemoglobin 32 pg (26-34); Mean Corpuscular Volume 97 fL (80-100); Monocytes Percent Auto 4.1 % (0.0-11.0); Neutrophils Percent Auto 83.7 % (42.0-72.0); Platelet Count* 150 K/uL (140-440); RDW Coefficient of Variation % 13.2 % (11.5-15.5); White Blood Count* 7.27 K/uL (4.50-11.00)
[2023-09-26 12:34] LABS: Slide Review Reflex No
[2023-09-26 12:39] LABS: Albumin* 3.9 g/dL (3.3-5.0); Chloride* 101 mmol/L (96-114)
[2023-09-26 12:40] LABS: Potassium* 4.4 mmol/L (3.6-5.1); Sodium* 135 mmol/L (135-149)
[2023-09-26 12:42] LABS: Bilirubin Total* 0.4 mg/dL (0.1-1.5); Creatinine* 2.9 mg/dL (0.5-1.5); Est. Creatinine Clearance* 13.26; Estimated Glomerular Filt Rate 16 ml/min
[2023-09-26 12:43] LABS: Alanine Aminotransferase* 27 U/L (4-35); Alkaline Phosphatase* 55 U/L (40-150); Anion Gap 7 mEq/L (7-15); Aspartate Amino Transferase* 55 U/L (12-35); Blood Urea Nitrogen* 51 mg/dL (7-30); Calcium* 8.6 mg/dL (8.4-10.6); Carbon Dioxide* 27 mmol/L (20-32); Glucose* 162 mg/dL (60-115)
[2023-09-26 12:45] LABS: D Dimer Quantitative* 0.95 ug/ml (0.00-0.50); Ethanol* < 0.01 % (0.01-0.03)
[2023-09-26 12:55] LABS: NT Pro B Type NatriureticPept* 1610 pg/mL; Troponin I* 0.02 ng/mL (0.01-0.04)
[2023-09-26 13:00] LABS: Procalcitonin* 0.31 ng/mL (<0.50)
[2023-09-26 13:14] LABS: PCR FLU A Negative PCR FLU A (Negative); PCR FLU B Negative PCR FLU B (Negative); PCR RSV Negative PCR RSV (Negative)
[2023-09-26 13:15] LABS: SARS PCR* Negative SARS-CoV-2 (Negative)
[2023-09-26] MEDS: FUROSEMIDE 10 MG/ML inj 20 MG IVP (15:16)
[2023-09-26] MEDS: cefTRIAXone 1 GM in 0.9 % SODIUM CHLORIDE Mini-bag 100 ML IVPB (15:17)
[2023-09-26] MEDS: AZITHROMYCIN 250 MG TABLET 500 MG PO (15:26)
--- NOTE | 2023-09-26 16:55 | ED.NURSE ---
nurse to nurse report given to MS. pt to room 251
[2023-09-26] MEDS: SODIUM CHLORIDE 0.9 % (FLUSH) 10 ML SYRINGE 5 ML IVF (18:26)
[2023-09-26] MEDS: LORazepam 2 MG/ML inj IVP ×2 (18:27→22:36)
--- NOTE | 2023-09-26 18:35 | P.IMHP_ITS ---
Hospitalist- H&P: HPI History of Present Illness Date Seen: 09/26/23 Chief complaint: shortness of breath Narrative: Akiko Velázquez is a 73 year old female with extensive past medical history including hx of lung cancer, htn, copd, ckd3, Multiple sclerosis, chronic pain syndrome who presented to ED for evaluation of hypoxia. She is assisted living resident and was found to have oxygen saturation of 70% and thus EMS was called. She presented to ED where she had extensive workup. Goals of care were discussed with patient and POA who requested transition to comfort care and hospice enrollment. I was able to talk to patient's granddaughter Matthew who is POA per her patient has wanted to transition to comfort care and hospice. Patient currently unable to provide full hx. She was admitted for symptom management, SW consult and hospice referral. CT chest IMPRESSION: 1. New small bilateral pleural effusions. New/increasing interlobular septal thickening and patchy ground-glass opacities in pattern compatible pulmonary edema. 2. Stable 2 centimeter right lower lobe pulmonary nodule. 3. Unchanged fibrosis at both lung apices. 4. Severe coronary artery calcification. 5. Aortic valve calcifications. Correlate for aortic stenosis cxr IMPRESSION: Increased patchy opacities in the left upper lobe around a area of underlying bronchiectasis and distortion, may be superimposed infection. Review of Systems Status of ROS: Reports: unobtainable due to medical condition [facility] Medical History Pulmonary nodule ?R91.1 - Solitary pulmonary nodule (ICD-10) Atrophic rhinitis ?J31.0 - Chronic rhinitis (ICD-10) Anxiety ?F41.9 - Anxiety disorder, unspecified (ICD-10) Elevated cholesterol ?E78.00 - Pure hypercholesterolemia, unspecified (ICD-10) Arthritis ?M19.90 - Unspecified osteoarthritis, unspecified site (ICD-10) Sleep apnea ?G47.30 - Sleep apnea, unspecified (ICD-10) History of benzodiazepine use ?Z87.898 - Personal history of other specified conditions (ICD-10) Hypoxia ?R09.02 - Hypoxemia (ICD-10) History of fracture of left hip ?Z87.81 - Personal history of (healed) traumatic fracture (ICD-10) Fall ?W19.XXXA - Unspecified fall, initial encounter (ICD-10) Acute electrocardiogram changes ?R94.31 - Abnormal electrocardiogram [ECG] [EKG] (ICD-10) Closed fracture of left hip requiring operative repair ?S72.002A - Fracture of unspecified part of neck of left femur, initial encounter for closed fracture (ICD-10) MAKAYLA on CPAP ?G47.33 - Obstructive sleep apnea (adult) (pediatric) (ICD-10) ?Z99.89 - Dependence on other enabling machines and devices (ICD-10) Osteoporosis ?M81.0 - Age-related osteoporosis without current pathological fracture (ICD- 10) Valvular heart disease ?I38 - Endocarditis, valve unspecified (ICD-10) Myocardial infarction ?I21.9 - Acute myocardial infarction, unspecified (ICD-10) Mass of right lung ?R91.8 - Other nonspecific abnormal finding of lung field (ICD-10) Hypothyroid ?E03.9 - Hypothyroidism, unspecified (ICD-10) HTN (hypertension) ?I10 - Essential (primary) hypertension (ICD-10) DECLAN (generalized anxiety disorder) ?F41.1 - Generalized anxiety disorder (ICD-10) Dyslipidemia ?E78.5 - Hyperlipidemia, unspecified (ICD-10) Diabetes mellitus ?E11.9 - Type 2 diabetes mellitus without complications (ICD-10) Acute depression ?F32.A - Depression, unspecified (ICD-10) COPD (chronic obstructive pulmonary disease) ?J44.9 - Chronic obstructive pulmonary disease, unspecified (ICD-10) CAD (coronary artery disease) ?I25.10 - Atherosclerotic heart disease of [place] coronary artery without angina pectoris (ICD-10) Multiple sclerosis ?G35 - Multiple sclerosis (ICD-10) Surgical History Status post-operative repair of closed fracture of left hip (1998) ?Z98.890 - Other specified postprocedural states (ICD-10) ?Z87.81 - Personal history of (healed) traumatic fracture (ICD-10) History of tonsillectomy ?Z90.89 - Acquired absence of other organs (ICD-10) History of percutaneous coronary intervention (04/09/05) ?Z98.61 - Coronary angioplasty status (ICD-10) History of hysterectomy ?Z90.710 - Acquired absence of both cervix and uterus (ICD-10) History of colonoscopy ?Z98.890 - Other specified postprocedural states (ICD-10) History of toe surgery ?Z98.890 - Other specified postprocedural states (ICD-10) History of coronary artery stent placement ?Z95.5 - Presence of coronary angioplasty implant and graft (ICD-10) Family History Father CHF (congestive heart failure) Other Coronary artery disease Diabetes Mental disorder Seizure disorder Social History Narrative: No smoker Does not drink alcohol Does not use illicit drugs What is your current living situation?: I presently have a place to live Problems where you live: no known problems Problems where you live details: n/a In the past 12 months, utilities in danger of being shut off: no In past 12 months, lack of transportation kept you from medical appts, meetings, work, or getting things needed for daily living: yes In the past 12 mos, have been you worried that your food would run out before you had money to buy more?: never true In the past 12 mos, the food you bought just didn't last and you didn't have money to buy more?: never true Highest level of school completed/degree received: some college, no degree Smoking Status: Former smoker Do you use any of these nicotine containing products: None Second hand tobacco smoke exposure: No How often do you have a drink containing alcohol: monthly or less How many standard drinks containing alcohol do you have on a typical day: 1 or 2 How often do you have six or more drinks on one occasion: Less than monthly AUDIT-C Alcohol total score: 2 Non-prescribed substance use: denies use Caffeine: Yes (coffee) How often does anyone, including family, friends and others, physically hurt you : never How often does anyone, including family, friends and others, insult or talk down to you: never How often does anyone, including family, friends and others, threaten you with harm: never How often does anyone, including family, friends and others, scream or curse at you: never Little interest or pleasure in doing things: nearly every day Feeling down, depressed, or hopeless: nearly every day service: No Meds Home Medications and Allergies Home Medications Medication Instructions Recorded Confirmed Type aspirin 81 mg tablet,delayed 162 mg PO QDAY 06/10/22 09/26/23 History release (Adult Low Dose Aspirin) calcium carbonate 600 mg calcium 600 mg PO BID 12/16/22 09/26/23 History (1,500 mg) tablet (Calcium) cholecalciferol (vitamin D3) 50 50 mcg PO DAILY 12/16/22 09/26/23 History mcg (2,000 unit) capsule docusate sodium 100 mg capsule 100 mg PO .MO,WE,FR@12/16/22 09/26/23 History (Colace) ferrous sulfate 325 mg (65 mg 325 mg PO DAILY 12/16/22 09/26/23 History iron) tablet magnesium 250 mg tablet 250 mg PO HS 12/16/22 09/26/23 History omega 3-zwl-tfv-fish oil 1,000 mg 1 cap PO BID 12/16/22 09/26/23 History (120 mg-180 mg) capsule emjpotzc-[id number]-FA 1 tab PO DAILY 12/16/22 09/26/23 History ascorbic acid (vitamin C) 1,000 mg 1,000 mg PO DAILY 05/21/23 09/26/23 History tablet (Vitamin C) aripiprazole 10 mg tablet 10 mg PO HS 08/08/23 09/26/23 History glimepiride 1 mg tablet 0.5 mg PO DAILY 08/08/23 09/26/23 History Allergies Allergy/AdvReac Type Severity Reaction Status Date / Time ketorolac [From Toradol] Allergy Intermediate Agitated Verified 09/26/23 11:17 codeine Allergy Verified 09/26/23 11:17 Exam Narrative: Exam Narrative: Gen: no acute distress HEENT: NCAT EOMI mmm Neck: Supple CV: deferred Lungs: deferred Abd: deferred Neuro: moves extremities MSK: age appropriate muscle mass Const: Vital Signs, click to edit/add: Vital Signs - 24 hr 09/26/23 11:20 09/26/23 11:25 09/26/23 11:30 Temperature 97.6 F Pulse Rate 70 70 Pulse Rate [Pulse Oximeter] 68 Respiratory Rate 16 Blood Pressure Blood Pressure [Ri ght Arm] Blood Pressure [Ri ght Upper Arm] 125/50 L Pulse Oximetry 91 93 89 Oxygen Delivery Me thod Nasal Cannula Oxygen Flow Rate 2 09/26/23 11:32 09/26/23 11:37 09/26/23 12:00 Temperature Pulse Rate 68 68 Pulse Rate [Pulse Oximeter] Respiratory Rate Blood Pressure 127/57 L Blood Pressure [Ri ght Arm] Blood Pressure [Ri ght Upper Arm] Pulse Oximetry 90 91 92 Oxygen Delivery Me thod Nasal Cannula Oxygen Flow Rate 2 09/26/23 12:01 09/26/23 12:02 09/26/23 12:32 Temperature Pulse Rate 68 67 Pulse Rate [Pulse Oximeter] Respiratory Rate Blood Pressure 142/52 H 116/58 L Blood Pressure [Ri ght Arm] Blood Pressure [Ri ght Upper Arm] Pulse Oximetry 90 90 Oxygen Delivery Me thod Nasal Cannula Oxygen Flow Rate 2 09/26/23 12:45 09/26/23 13:00 09/26/23 13:01 Temperature Pulse Rate 66 66 68 Pulse Rate [Pulse Oximeter] Respiratory Rate Blood Pressure 120/56 L Blood Pressure [Ri ght Arm] Blood Pressure [Ri ght Upper Arm] Pulse Oximetry 89 93 95 Oxygen Delivery Me thod Nasal Cannula Nasal Cannula Nasal Cannula Oxygen Flow Rate 2 2 2 09/26/23 13:30 09/26/23 13:32 09/26/23 13:33 Temperature Pulse Rate 58 L 58 L 58 L Pulse Rate [Pulse Oximeter] Respiratory Rate Blood Pressure 100/51 L Blood Pressure [Ri ght Arm] Blood Pressure [Ri ght Upper Arm] Pulse Oximetry 96 94 95 Oxygen Delivery Me thod Nasal Cannula Nasal Cannula Oxygen Flow Rate 2 2 2 09/26/23 14:00 09/26/23 14:01 09/26/23 14:30 Temperature Pulse Rate 58 L 58 L 60 Pulse Rate [Pulse Oximeter] Respiratory Rate Blood Pressure 97/46 L Blood Pressure [Ri ght Arm] Blood Pressure [Ri ght Upper Arm] Pulse Oximetry 94 93 91 Oxygen Delivery Me thod Oxygen Flow Rate 09/26/23 14:32 09/26/23 14:33 09/26/23 15:00 Temperature Pulse Rate 61 62 81 Pulse Rate [Pulse Oximeter] Respiratory Rate Blood Pressure 108/42 L Blood Pressure [Ri ght Arm] Blood Pressure [Ri ght Upper Arm] Pulse Oximetry 95 94 89 Oxygen Delivery Me thod Oxygen Flow Rate 09/26/23 15:02 09/26/23 15:30 09/26/23 15:32 Temperature Pulse Rate 80 78 77 Pulse Rate [Pulse Oximeter] Respiratory Rate Blood Pressure 179/92 H 185/86 H Blood Pressure [Ri ght Arm] Blood Pressure [Ri ght Upper Arm] Pulse Oximetry 91 94 92 Oxygen Delivery Me thod Oxygen Flow Rate 09/26/23 15:47 09/26/23 15:48 09/26/23 16:00 Temperature Pulse Rate 76 77 75 Pulse Rate [Pulse Oximeter] Respiratory Rate Blood Pressure 176/61 H Blood Pressure [Ri ght Arm] Blood Pressure [Ri ght Upper Arm] Pulse Oximetry 87 L 84 L 90 Oxygen Delivery Me thod Oxygen Flow Rate 2 2 09/26/23 16:02 09/26/23 16:03 09/26/23 16:30 Temperature Pulse Rate 76 75 74 Pulse Rate [Pulse Oximeter] Respiratory Rate Blood Pressure 180/63 H Blood Pressure [Ri ght Arm] Blood Pressure [Ri ght Upper Arm] Pulse Oximetry 90 90 87 L Oxygen Delivery Me thod Oxygen Flow Rate 2 2 2 09/26/23 16:31 09/26/23 16:51 09/26/23 17:16 Temperature 98.4 F Pulse Rate 75 76 Pulse Rate [Pulse Oximeter] 73 Respiratory Rate 16 Blood Pressure 162/60 H 152/57 H Blood Pressure [Ri ght Arm] 143/62 H Blood Pressure [Ri ght Upper Arm] Pulse Oximetry 86 L 91 93 Oxygen Delivery Me thod Nasal Cannula Oxygen Flow Rate 2 2 2 Hospitalist - H&P: Result Labs Labs: Short CBC 09/26/23 Range/Units 12:12 WBC 7.27 (4.50-11.00) K/uL Hgb 11.6 L (12.0-16.0) gm/dL Hct 34.8 (33.0-51.0) % Plt Count 150 (140-440) K/uL BMP 09/26/23 12:12 Sodium 135 Potassium 4.4 Chloride 101 Carbon Dioxide 27 BUN 51 H Creatinine 2.9 H Glucose 162 H Calcium 8.6 Cardiac Enzymes 09/26/23 Range/Units 12:12 Troponin I 0.02 (0.01-0.04) ng/mL Liver Function 09/26/23 Range/Units 12:12 Total Bilirubin 0.4 (0.1-1.5) mg/dL AST 55 H (12-35) U/L ALT 27 (4-35) U/L Alkaline Phosphatase 55 (40-150) U/L Albumin 3.9 (3.3-5.0) g/dL Assessment and Plan Assessment and plan (1) Need for comfort care: Status: Acute Plan Akiko Velázquez is a 73 year old female with extensive past medical history including hx of lung cancer, htn, copd, ckd3, Multiple sclerosis, chronic pain syndrome who presented to ED for evaluation of hypoxia. She is assisted living resident and was found to have oxygen saturation of 70% and thus EMS was called. She presented to ED where she had extensive workup. Goals of care were discussed with patient and POA who requested transition to comfort care and hospice enrollment. I was able to talk to patient's granddaughter Matthew who is POA per her patient has wanted to transition to comfort care and hospice. Patient currently unable to provide full hx. She was admitted for symptom man agement, SW consult and hospice referral. Plan -admit to inpatient -SW consult -Hospice referral likely friday -initiate comfort care orders/protocol
--- NOTE | 2023-09-26 18:47 | PC.NURSE ---
Admission-- Pleasant, cooperative patient was admitted to med-surg from ED at approximately 1700. Oriented to person and year and states that she is in the dying room at the hospital. VSS and pt is afebrile. SPO2 >90% on 2L per n.c. She denied any pain, but then stated she always has pain in her arms and legs r/t MS. Pt and family have clearly expressed their wish for comfort cares only. Diagnostic tests all discontinued per MD order. LS diminished. Murmur noted. Pt transferred to bed via cart and was repositioned only this shift. Granddaughter Matthew (POA) and grandson at bedside and appear loving and supportive. Pt given 0.5mg Ativan once this evening for anxiety.
[2023-09-26] MEDS: MORPHINE 10 MG/0.5 ML ORAL SOLN PO (21:07)
[2023-09-27] MEDS: LORazepam 2 MG/ML inj IVP ×2 (02:50→18:42)
--- NOTE | 2023-09-27 06:53 | PC.NURSE ---
Shift note [id number]: Pt noted to be alert & oriented to person, place and time at start of shift and able to state correct date. She denied pain when asked though B/P was noted to be elevated at 180/69 with pt appearing to be restless. PRN Morphine was then given as pt did state, ?my stomach hurts a little? when asked again about pain. Abdomen is noted to be firm and bowel sounds are hypoactive. Pt could not recall when last BM was and is noted to be incontinent of bladder at this time with sacral Mepilex dressing in place. IV to L forearm SL patent and intact. Family has been present at bedside throughout the shift and has been educated regarding comfort cares and end of life process. Staff have been providing oral cares and repositioning. No mottling has been noted this shift. Restlessness treated with PRN Lorazepam x 2- pt noted to be believe she was ?falling? in bed early this morning though was not moving in bed. ?
[2023-09-27 07:00] VITALS: RESP 18
[2023-09-27] MEDS: MORPHINE 10 MG/0.5 ML ORAL SOLN PO ×2 (09:17→15:29)
[2023-09-27 15:00] VITALS: RESP 18
--- NOTE | 2023-09-27 15:42 | PM.IMPN1 ---
Progress Note: A&P Assessment and plan (1) Hypoxia: Problem details: Acute on chronic, recurrent. O2 saturations 70% per EMS. History of lung cancer, hypertension, COPD Family wishes for comfort cares only. She currently has oxygen nasal cannula, recommend very low-dose 0.5 to avoid retaining CO2 Status: Acute (2) History of lung cancer in adulthood: Problem details: 1.7cm partially calcified spiculated nodule in RLL Status: Acute (3) Need for comfort care: Problem details: Granddaughter Matthew, also POA, will follow-up with [facility] to look into hospice cares at her current facility vp marketing services and skin for further assistance - Friday Status: Acute Time Spent With Patient Total time spent: Total time spent caring for the patient today was 45 minutes. This includes time spent for the visit reviewing the chart, time spent during the visit, time spent after the visit and documentation and planning in coordination of care. Subjective Date Seen: 09/27/23 Interval history: Patient is sleeping. Granddaughter, Matthew, is at bedside. She reports patient appeared to be restless earlier in the morning, mumbling. Currently appears restful. Decision has been made to pursue comfort cares. Her home medications have been discontinued. Her granddaughter reports they would like to pursue hospice but unsure if available at her current residence or if family would like to pursue hospice house. Exam Narrative: Exam Narrative: PHYSICAL EXAM General: Patient looks restful Pulmonary: No dyspnea Skin: Warm, dry. Const: Vital Signs, click to edit/add: Vital Signs - 24 hr 09/26/23 15:47 09/26/23 15:48 09/26/23 16:00 Temperature Pulse Rate 76 77 75 Pulse Rate [Pulse Oximeter] Respiratory Rate Blood Pressure 176/61 H Blood Pressure [Ri ght Arm] Pulse Oximetry 87 L 84 L 90 Oxygen Delivery Me thod Oxygen Flow Rate 2 2 09/26/23 16:02 09/26/23 16:03 09/26/23 16:30 Temperature Pulse Rate 76 75 74 Pulse Rate [Pulse Oximeter] Respiratory Rate Blood Pressure 180/63 H Blood Pressure [Ri ght Arm] Pulse Oximetry 90 90 87 L Oxygen Delivery Me thod Oxygen Flow Rate 2 2 2 09/26/23 16:31 09/26/23 16:51 09/26/23 17:16 Temperature 98.4 F Pulse Rate 75 76 Pulse Rate [Pulse Oximeter] 73 Respiratory Rate 16 Blood Pressure 162/60 H 152/57 H Blood Pressure [Ri ght Arm] 143/62 H Pulse Oximetry 86 L 91 93 Oxygen Delivery Me thod Nasal Cannula Oxygen Flow Rate 2 2 2 09/26/23 17:16 09/26/23 20:56 09/26/23 22:59 Temperature 98.2 F Pulse Rate Pulse Rate [Pulse Oximeter] 73 Respiratory Rate 16 18 18 Blood Pressure Blood Pressure [Ri ght Arm] 180/69 H Pulse Oximetry 92 Oxygen Delivery Me thod Nasal Cannula Oxygen Flow Rate 2 09/27/23 07:00 Temperature Pulse Rate Pulse Rate [Pulse Oximeter] Respiratory Rate 18 Blood Pressure Blood Pressure [Ri t Arm] Pulse Oximetry Oxygen Delivery Me thod Oxygen Flow Rate
[2023-09-27] MEDS: SODIUM CHLORIDE 0.9 % (FLUSH) 10 ML SYRINGE 5 ML IVF ×2 (18:40→20:50)
--- NOTE | 2023-09-27 19:41 | PC.NURSE ---
Nursing Care Hours: [id number] Pt this shift resting in bed surrounded by family. Requested morphine x1 and Ativan at HS. Brief changed throughout day, skin intact. Skin moist and hot, changed into gown and half bed bath given. Education provided to family about signs and symptoms and how to do oral cares. Some moist breath sounds noted but not requiring intervention. BS hypoactive.
[2023-09-28] MEDS: LORazepam 2 MG/ML inj IVP ×6 (03:34→23:14)
--- NOTE | 2023-09-28 06:57 | PC.NURSE ---
Shift note [id number]: Family remains at bedside as pt remains on comfort cares with staff providing repositioning and oral cares. Pt remains incontinent of bladder due to end of life and has been incontinent of bladder three times throughout the shift.?Lung sounds remain diminished bilaterally with no coughing noted. Abdomen remains firm and bowel sounds remain hypoactive to all four quadrants. PRN Lorazepam utilized to help keep pt comfortable. Sacral Mepilex to sacrum remains clean, dry and intact. Pt has been nonverbal this shift as she continues to decline. No mottling noted this shift. No respiratory distress noted this shift.
[2023-09-28 07:00] VITALS: PULSE 101; RESP 20
[2023-09-28] MEDS: SODIUM CHLORIDE 0.9 % (FLUSH) 10 ML SYRINGE 5 ML IVF (08:30)
[2023-09-28] MEDS: MORPHINE 10 MG/0.5 ML ORAL SOLN PO ×5 (08:37→22:37)
[2023-09-28 10:07] VITALS: BP 178/64; PULSE 101; RESP 20; O2SAT 85
[2023-09-28 15:00] VITALS: RESP 14
--- NOTE | 2023-09-28 15:39 | PM.IMPN1 ---
Progress Note: A&P Assessment and plan (1) Hypoxia: Problem details: Acute on chronic, recurrent. O2 saturations 70% per EMS. History of lung cancer, hypertension, COPD Family wishes for comfort cares only. She currently has oxygen nasal cannula, recommend very low-dose 0.5 to avoid retaining CO2 Status: Acute (2) History of lung cancer in adulthood: Problem details: 1.7cm partially calcified spiculated nodule in RLL Status: Acute (3) Need for comfort care: Problem details: Granddaughter Matthew, also POA, will follow-up with [facility] to look into hospice cares at her current facility customer services coordinator for further assistance - Friday Status: Acute Plan 1. Reviewed with patient daughter and grandson. 2. Continue with supportive efforts 3. Continue with efforts to establish a safe discharge disposition plan. If patient does appear to be actively dying, may need to reconsider whether not we can transfer her from the hospital safely. Time Spent With Patient Total time spent: 20 minutes Subjective Date Seen: 09/28/23 Interval history: Hospital day 3. Patient receiving comfort focus measures only at this time. Has been comfortable. Awaiting safe discharge disposition plan. Her daughter and her daughter son are at her bedside. Exam Narrative: Exam Narrative: Appears comfortable. Appears to be transitioning to actively dying. No mottling. Breathing comfortably about 20 breaths per minute. Palpable heart rate of about 100 beats per minute. Shallow respirations. Const: Vital Signs, click to edit/add: Vital Signs - 24 hr 09/28/23 07:00 09/28/23 10:07 Pulse Rate [Pulse Oximeter] 101 H 101 H Respiratory Rate 20 20 Blood Pressure [Ri ght Arm] 178/64 H Pulse Oximetry 85 L Oxygen Delivery Me thod OxyMask Oxygen Flow Rate 0.5 Documenting provider has reviewed patient's vital signs: yes
[2023-09-28 23:00] VITALS: RESP 12
[2023-09-29] MEDS: MORPHINE 10 MG/0.5 ML ORAL SOLN PO ×4 (01:50→10:25)
--- NOTE | 2023-09-29 11:43 | PC.NURSE ---
Time of : 09/29/23 @ 1044. [facility] was called @1054 regarding the patient.
--- NOTE | 2023-09-29 11:52 | P.DN_ITS ---
Pronouncement Note Date and Time of Date of : 09/29/23 Time of : 10:49 PCOD Preliminary cause of : Chronic obstructive pulmonary disease Contributing Factors (1) Hypoxia: (2) History of lung cancer in adulthood: (3) Need for comfort care: Summary Additional details: 73-year-old woman with longstanding multiple sclerosis, chronic obstructive pulmonary disease, chronic hypoxemic respiratory failure, obstructive sleep apnea requiring CPAP, coronary artery disease, essential hypertension, hypertensive heart disease, valvular heart disease, diabetes mellitus type 2, history of lung cancer, and former smoker, presented to the hospital for evaluation on 09/26/2023 with complaint of dyspnea, found to have tachypnea and hypoxia with room air oxygen saturations at 70% at rest, workup indicated acute on chronic hypoxemic respiratory failure with exacerbation of underlying conditions including COPD and multiple sclerosis. Patient power of employment law attorney for health, her granddaughter efe, in conjunction with the patient's grandson, Minh, made it very clear that the patient wanted comfort focus measures only with DNR DNI resuscitation status. They decline any consideration for transfer, ventilatory support, and so forth. They declined any additional disease directed diagnostic or interventional efforts. As much as could be ascertained from the patient herself it was apparent that this was indeed the patient's goal as well. Comfort focus measures were undertaken successfully. Patient's family was by her side the entire time she was in the hospital. Patient peacefully on the morning of 09/29/2023 at 10:49 a.m. Additional Data Confirmation of : no pulse, no respirations, no heart sounds and pupils fixed and dilated Family: at bedside Additional persons at bedside: other (Nurse) Attending/PCP notified?: Yes Attending physician: Frankie Edwards MD Time Seen by Provider: 10:52 Date Seen: 09/29/23 Was code activated?: No Autopsy requested?: No employment appeals examiner notified?: No Organ bank notified?: Yes
--- NOTE | 2023-09-29 13:37 | PC.NURSE ---
Awaiting Eye donation tech to arrive I talked to Rebeka @ [id number] and @ 7115 regarding acceptance of procedure.
--- NOTE | 2023-09-29 13:38 | PC.NURSE ---
The patient passed comfortably @ 1049 with grandson and Matthew at the bedside. The patient was repositioned q2 and checked as well for incontinence q2 prior to passing away. Mouth cares were completed as well. Virginia BRIGGS BSN
--- NOTE | 2023-09-29 17:18 | PC.NURSE ---
[facility] bank staff have completed eye donation procedure. Notified [facility], they have called back and will be arriving for continuous pickling line pickler at 1999.
== END 2023-09-29 10:49 | disposition expired | DRG 133 ==
LOC: ED 16:24 → MEDSURG 16:58
PROVIDERS: Admitting Provider Hospitalist; Emergency Provider Family Medicine; PCP Family Medicine; Visit Provider Family Medicine
DX: J96.21 Acute and chronic respiratory failure with hypoxia (principal); Z51.5 Encounter for palliative care; G47.33 Obstructive sleep apnea (adult) (pediatric); J44.1 Chronic obstructive pulmonary disease with (acute) exacerbation; G35 Multiple sclerosis; Z99.89 Dependence on other enabling machines and devices; J84.10 Pulmonary fibrosis, unspecified; R91.1 Solitary pulmonary nodule; Z85.118 Personal history of other malignant neoplasm of bronchus and lung; I13.10 Hypertensive heart and chronic kidney disease without heart failure, with stage 1 through stage 4 chronic kidney disease, or unspecified chronic kidney disease; E11.22 Type 2 diabetes mellitus with diabetic chronic kidney disease; N18.30 Chronic kidney disease, stage 3 unspecified; E11.9 Type 2 diabetes mellitus without complications; Z79.84 Long term (current) use of oral hypoglycemic drugs; Z87.891 Personal history of nicotine dependence; I25.10 Atherosclerotic heart disease of native coronary artery without angina pectoris; M81.0 Age-related osteoporosis without current pathological fracture; F32.9 Major depressive disorder, single episode, unspecified; F41.1 Generalized anxiety disorder; Z95.5 Presence of coronary angioplasty implant and graft; E03.9 Hypothyroidism, unspecified; E78.5 Hyperlipidemia, unspecified
CPT/HCPCS: 36415; 70450; 71045; 71250; 71275; 80048; 80053; 80306; 81001; 82077; 82803; 83605; 83880; 84145; 84484; 85025; 85379; 86140; 87040; 87086; 87631; 93005; 94761; 95992; 99284; 99285; A9270; J0696; J1940; J2060; Q9967